=== PATIENT | male | born 1955 | race African-American/Black ===

== ENCOUNTER 2023-10-13 11:50 | Inpatient (IN) ==
[2023-10-13] MEDS ORDERED: KETAMINE HCL ONE (12:33)
[2023-10-13] MEDS ORDERED: PRECEDEX INJ VIAL ONE (12:33)
[2023-10-13] MEDS ORDERED: XYLOCAINE 2 % (PLAIN) ONE (12:33)
[2023-10-13] MEDS: LR 1,000 ML IV 1,000 ML IV SCH (13:23)
[2023-10-13] MEDS: DILAUDID INJ IVP PRN (13:24)
[2023-10-13 13:42] LABS: BASOPHILS # (AUTO) 0.1 X10^3/uL (0.0-0.1); BASOPHILS % (AUTO) 0.4 % (0.2-1.0); HEMATOCRIT 31.5 % (42.0-54.0); HEMOGLOBIN 10.4 g/dL (13.5-18.0); LYMPHOCYTES # (AUTO) 1.3 X10^3/uL (1.3-2.9); LYMPHOCYTES % (AUTO) 7.5 % (21.0-51.0); MEAN CORPUSCULAR HEMOGLOBIN 29.9 pg (27.0-34.0); MEAN CORPUSCULAR HGB CONC 33.1 g/dL (33.0-35.0); MEAN CORPUSCULAR VOLUME 90.3 fL (80.0-100.0); MEAN PLATELET VOLUME 9.5 fL (7.4-11.0); MONOCYTES # (AUTO) 1.4 x10^3/uL (0.3-0.8); MONOCYTES % (AUTO) 7.8 % (0.0-13.0); NEUTROPHILS % (AUTO) 84.3 % (42.0-75.0); PLATELET COUNT 297 X10^3/uL (150.0-450.0); RED BLOOD COUNT 3.49 X10^6/uL (4.7-6.0); RED CELL DISTRIBUTION WIDTH 14.3 % (11.6-16.5); WHITE BLOOD COUNT 17.8 X10^3/uL (3.6-10.0)
[2023-10-13 13:57] LABS: CALCIUM 8.5 mg/dL (8.5-10.1); CARBON DIOXIDE 36.2 mmol/L (21-32); COR CA(FOR HYPOALB) 10.1 mg/dL (8.5-10.1); CREATININE 1.93 mg/dL (0.70-1.30); TOTAL PROTEIN 7.1 g/dL (6.4-8.2)
[2023-10-13 14:01] LABS: POTASSIUM 2.5 mmol/L (3.5-5.1)
--- NOTE | 2023-10-13 14:16 | EKG ---
Test Reason : j Blood Pressure : */* mmHG Vent. Rate : 92 BPM Atrial Rate : * BPM P-R Int : * ms QRS Dur : 104 ms QT Int : 356 ms P-R-T Axes : * 47 264 degrees QTc Int : 440 ms Atrial fibrillation Nonspecific T wave abnormality Abnormal ECG When compared with ECG of 31-MAR-2023 18:00, Atrial fibrillation was present Mar 25 Confirmed by Bharat Ovalle MD ([id number]) on 10/14/2023 7:33:59 AM Referred By: Confirmed By: Bharat Ovalle MD
[2023-10-13] MEDS: NICOTINE PATCH TD SCH (14:20)
[2023-10-13] MEDS: NS 500 ML IV 500 ML with POTASSIUM CHLORIDE INJ 40 MEQ VIAL 40 MEQ IV ONE (14:20)
[2023-10-13] MEDS: LOVENOX INJ 80 MG SYR SC SCH (14:21)
[2023-10-13 14:34] VITALS: BMI 27.6
[2023-10-13] MEDS: CARDIZEM INJ 125 MG VIAL 125 MG in NS 100 ML IV 100 ML IV PRN (14:45)
[2023-10-13] MEDS: APRESOLINE TAB 25 MG PO SCH (14:50)
[2023-10-13] MEDS ORDERED: CONSULT PHARMACY - POTASSIUM & MAGNESIUM XX SCH (15:00)
[2023-10-13 15:35] LABS: HEMOGLOBIN A1C 7.5 %
[2023-10-13] MEDS ORDERED: NS 1,000 ML IV 1,000 ML ONE (15:35)
[2023-10-13] MEDS: NS 1,000 ML IV 1,000 ML IV ONE (15:41)
[2023-10-13] MEDS: XOPENEX 1.25 MG/3 ML NEBULE NEB SCH (20:04)
[2023-10-13] MEDS: Atrovent NEB TX 0.02% NEB SCH (20:04)
[2023-10-13] MEDS: ZOCOR TAB 10 MG PO SCH (20:19)
--- NOTE | 2023-10-13 20:20 | DR.CONSULT ---
CONSULT Consultation for Day of: Date: 10/13/23 Chief Complaint Chief Complaint: Medical management Allergies Allergies Allergy/AdvReac Type Severity Reaction Status Date / Time No Known Allergies Allergy Verified 10/13/23 13:28 History of Present Illness History of Present Illness: This is a 68-year-old black male admitted by vascular surgeon Dr. Hinkle today. The patient was found to have a right lower extremity extremity ischemic limb. The exam reveals the patient's foot is currently cool but not cold. He has a long history of peripheral arterial disease in the past. The patient is presently receiving subcutaneous Lovenox at this time for anticoagulation. Labs today revealed the patient was profoundly hypokalemic with a potassium of 2.5; however, he is receiving potassium replacement already. He is dehydrated and also looks like he has underlying chronic kidney disease. The patient's glucose today was 232. I ordered a hemoglobin A1c, which came back at 7.5%. The patient is now a newly diagnosed type II diabetic, so I will cover him with a regular insulin sliding scale at this time. The patient does have a history of atrial fibrillation and is currently on a Cardizem drip. We will continue that, and I will go ahead and restart his digoxin, and we will also do a digoxin level. I will decrease his lisinopril to 20 mg daily because of his chronic kidney disease to help reduce any risk of hyperkalemia in the future. I see that the patient is anemic, which I suspect is secondary to anemia of chronic disease. He does have an elevated white blood cell count, which could be a stress reaction to his ischemic limb. However, I will go ahead and make sure we do a chest x-ray, urinalysis, and blood cultures x 2 to make sure we are not missing an underlying infection. Thank you for the consultation. I will follow with you. Past Medical History Past Medical History: CHF, Diabetes, Dyslipidemia, Gout and Hypertension Additional Medical History: neuropathy both feet, significant tobacco use in the past. Past Surgical History Surgical History: Ortho Surgery Family History Family Medical History: [place], Sudden Cardiac and Hypertension Social History Type of Tobacco Use: Cigarettes Alcohol Use: None Drug Use: Cocaine Medications Home Medications: No Known Allergies Allergy (Verified 10/13/23 13:28) CONTINUE taking the following medications amlodipine 10 mg tablet 10 mg PO QDAY 10/13/23 [History] apixaban 5 mg tablet (Eliquis) 5 mg PO BID 10/13/23 [History] colchicine 0.6 mg tablet 0.6 mg PO QDAY 10/13/23 [History] digoxin 125 mcg (0.125 mg) tablet 125 mcg PO QDAY 10/13/23 [History] doxazosin 4 mg tablet 4 mg PO QDAY 10/13/23 [History] hydralazine 25 mg tablet 25 mg PO QDAY 10/13/23 [History] hydrochlorothiazide 25 mg tablet 25 mg PO QDAY 10/13/23 [History] lisinopril 40 mg tablet 40 mg PO QDAY 10/13/23 [History] paroxetine HCl 20 mg tablet 20 mg PO QDAY 10/13/23 [History] potassium chloride 10 mEq capsule,extended release 10 meq PO QDAY 10/13/23 [History] simvastatin 10 mg tablet 10 mg PO QPM 10/13/23 [History] Review of Systems Constitutional: Weakness and Malaise Eyes: No Symptoms Reported ENT: No Symptoms Reported Respiratory: SOB with Excertion; denies Cough, Hemoptysis or Sputum Cardiovascular: Palpitations; denies Chest Pain, Orthopnea, Paroxysmal Noc. Dyspnea or Edema Gastrointestinal: No Symptoms Reported Genitourinary: No Symptoms Reported Musculoskeletal: No Symptoms Reported Skin: No Symptoms Reported Neurological: No Symptoms Reported Physical Exam Vital Signs: Vital Signs Temperature 97.9 F Temperature 98.0 F Pulse Rate 74 Pulse Rate 67 Pulse Rate 74 Pulse Rate 74 Pulse Rate 72 Pulse Rate 72 Pulse Rate 84 Pulse Rate 86 Pulse Rate 97 Pulse Rate 96 Pulse Rate 92 Respiratory Rate 24 Respiratory Rate 29 Respiratory Rate 32 Respiratory Rate 37 Respiratory Rate 25 Respiratory Rate 25 Respiratory Rate 31 Respiratory Rate 25 Respiratory Rate 30 Respiratory Rate 18 Respiratory Rate 27 Respiratory Rate 18 Respiratory Rate 36 Blood Pressure 94/53 Blood Pressure 97/52 Blood Pressure 89/53 Blood Pressure 101/56 Blood Pressure 101/56 Blood Pressure 110/68 Blood Pressure 86/52 Blood Pressure 83/49 Blood Pressure 101/61 Blood Pressure 108/59 O2 Sat by Pulse Oximetry 100 O2 Sat by Pulse Oximetry 96 O2 Sat by Pulse Oximetry 92 O2 Sat by Pulse Oximetry 96 O2 Sat by Pulse Oximetry 98 O2 Sat by Pulse Oximetry 98 O2 Sat by Pulse Oximetry 96 O2 Sat by Pulse Oximetry 95 O2 Sat by Pulse Oximetry 94 O2 Sat by Pulse Oximetry 93 O2 Sat by Pulse Oximetry 95 Oriented: Normal, Time, Person and Place Eyes: Normal Ear: Normal Nose: Normal Throat: Normal Respiratory: Clear Throughout Cardiovascular: Normal Auscultation: Bowel Sounds: Normal Palpation: Normal Tenderness: Normal Skin: Normal Musculoskeletal: Normal Psychiatric: Normal Mood Description: Withdrawn Affect: Flat Speech Pattern: Clear and Appropriate Plan (1) Essential (primary) hypertension: Status: Acute Plan: Monitor daily blood pressures. I will cut back the dose of the lisinopril from 40 mg to 20 mg, secondary to his underlying chronic kidney disease. (2) Hyperlipidemia: Status: Acute Plan: Statin treatment. (3) Ischemic leg: Status: Acute Plan: Vascular surgery seen the patient. We will continue him on his Lovenox at this time. (4) Atrial fibrillation: Status: Acute Plan: Continue Cardizem drip. Continue oral digoxin this time. We will check digoxin level. (5) Type 2 diabetes mellitus: Status: Acute Plan: Will cover the patient with sliding scale regular insulin per protocol. (6) Leukocytosis: Status: Acute Plan: Check urinalysis, chest x-ray and blood cultures x 2. (7) Anemia: Status: Acute Plan: Check anemia profile. (8) Dehydration: Status: Acute Plan: IV fluid hydration.
[2023-10-13] MEDS ORDERED: ZOCOR TAB 10 MG PO SCH (21:00)
[2023-10-13 21:13] LABS: APPEARANCE,URINE SLIGHTLY HAZY (CLEAR); BILIRUBIN,URINE 1+ (NEGATIVE); BLOOD/HEMOGLOBIN,URINE 1+ (NEGATIVE); COLOR,URINE AMBER (YELLOW); GLUCOSE, URINE NEGATIVE (NEGATIVE); KETONES,URINE NEGATIVE (NEGATIVE); LEUKOCYTE ESTERASE ,URINE NEGATIVE (NEGATIVE); NITRITES,URINE NEGATIVE (NEGATIVE); PROTEIN,URINE 2+ (NEGATIVE); UROBILINOGEN,URINE 3+ (NORMAL)
[2023-10-13 21:14] LABS: BACTERIA,URINE TRACE /HPF (NEGATIVE); HYALINE CASTS, URINE NUMEROUS /LPF (NEGATIVE); SQUAMOUS EPITHELIAL CELL,UR RARE /HPF (NEGATIVE); TRANSITIONAL EPI CELLS,URINE RARE /HPF (NEGATIVE)
[2023-10-13] MEDS: LANOXIN or DIGITEK PO SCH (21:55)
[2023-10-14] MEDS: HIBICLENS WASH EXT ONE (01:30)
[2023-10-14 05:11] LABS: BASOPHILS # (AUTO) 0.1 X10^3/uL (0.0-0.1); BASOPHILS % (AUTO) 0.5 % (0.2-1.0); EOSINOPHILS # (AUTO) 0.1 x10^3/uL (0.0-0.2); EOSINOPHILS % (AUTO) 0.4 % (0.9-2.9); HEMATOCRIT 29.8 % (42.0-54.0); HEMOGLOBIN 9.9 g/dL (13.5-18.0); LYMPHOCYTES # (AUTO) 1.4 X10^3/uL (1.3-2.9); LYMPHOCYTES % (AUTO) 7.7 % (21.0-51.0); MEAN CORPUSCULAR HEMOGLOBIN 29.8 pg (27.0-34.0); MEAN CORPUSCULAR HGB CONC 33.1 g/dL (33.0-35.0); MEAN CORPUSCULAR VOLUME 90.2 fL (80.0-100.0); MEAN PLATELET VOLUME 10.5 fL (7.4-11.0); MONOCYTES # (AUTO) 1.2 x10^3/uL (0.3-0.8); MONOCYTES % (AUTO) 6.7 % (0.0-13.0); NEUTROPHILS # (AUTO) 15.7 x10^3/uL (2.2-4.8); NEUTROPHILS % (AUTO) 84.7 % (42.0-75.0); PLATELET COUNT 299 X10^3/uL (150.0-450.0); RED CELL DISTRIBUTION WIDTH 14.6 % (11.6-16.5); WHITE BLOOD COUNT 18.5 X10^3/uL (3.6-10.0)
[2023-10-14 05:23] LABS: ALANINE AMINOTRANSFERASE 20 Units/L (12-78); ALBUMIN 1.8 g/dL (3.4-5.0); ALKALINE PHOSPHATASE 100 Units/L (46-116); ASPARTATE AMINO TRANSFERASE 37 Units/L (15-37); BLOOD UREA NITROGEN 18 mg/dL (7-18); CALCIUM 7.9 mg/dL (8.5-10.1); CARBON DIOXIDE 36.7 mmol/L (21-32); CHLORIDE 94 mmol/L (98-107); COR CA(FOR HYPOALB) 9.7 mg/dL (8.5-10.1); COR NA(FOR HYPERGLY) 137 mmol/L (136-145); CREATININE 1.44 mg/dL (0.70-1.30); DIGOXIN 0.35 ng/mL (0.9-2); GLUCOSE 162 mg/dL (65-99); SODIUM 136 mmol/L (136-145); TOTAL PROTEIN 6.5 g/dL (6.4-8.2); eGFR NON BLACK RACES 52 (>60)
[2023-10-14 05:24] LABS: POTASSIUM 2.5 mmol/L (3.5-5.1)
[2023-10-14] MEDS ORDERED: CONSULT PHARMACY - POTASSIUM & MAGNESIUM XX SCH (06:00)
--- NOTE | 2023-10-14 07:36 | RAD ---
EXAM:CHEST, 1 VIEWHISTORY:wheezing ;COMPARISON:No relevant prior studies were available for comparison at the time of interpretation.TECHNIQUE:CHEST, 1 VIEWFINDINGS:Chest:Lines and tubes: Left-sided pacemaker generator with lead or leads in satisfactory position.Mediastinum: Cardiomegaly.Pulmonary vessels: Pulmonary vasculature is prominent.Lung mccracken: No suspicious airspace opacity.Pleura: No effusion. No pneumothorax.Bones and soft tissues: No acute osseous or soft tissue abnormality.IMPRESSION:1. Findings suggest heart failureTHIS IS AN ELECTRONICALLY VERIFIED FINAL REPORT10/14/2023 7:33 AM - Electronically signed by Rajat Lay MD
[2023-10-14] MEDS: NS 500 ML IV 500 ML with POTASSIUM CHLORIDE INJ 40 MEQ VIAL 60 MEQ IV ONE (09:00)
[2023-10-14] MEDS: MAXIPIME VIAL 2 GRAMS 2 G in NS 100 ML IV 100 ML IV SCH (09:00)
[2023-10-14] MEDS ORDERED: HYDROCHLOROTHIAZIDE 25 MG TAB PO SCH (09:00)
[2023-10-14] MEDS ORDERED: K-DUR TAB 20 MEQ PO SCH (09:00)
[2023-10-14] MEDS ORDERED: NORVASC TAB 10 MG PO SCH (09:00)
[2023-10-14] MEDS ORDERED: ZESTRIL TAB 40 MG PO SCH (09:00)
[2023-10-14] MEDS ORDERED: MOBIC TAB 15 MG PO SCH (09:00)
[2023-10-14] MEDS ORDERED: COLCRYS TAB 0.6 MG PO SCH (09:00)
--- NOTE | 2023-10-14 09:18 | PCM.PROG ---
Progress Note Progress Note for Day of Date of Exam: 10/14/23 Subjective Subjective: The patient is sitting up on the side of the bed this morning. He reports that he has had no acute problems since admission yesterday. He had no issues last night. I do see that he had a low-grade fever at 04:00 this morning and 99 F. At that time, he reported that he did get cold and had chills. His white blood cell count did go up to 18,500 with elevated neutrophil count. Last night, urinalysis did not reveal UTI, and yesterday's chest x-ray showed no infection in his lungs. We did do blood cultures x 2 last night. However, the results are still pending. Since his white count has gone up since yesterday and he had a low-grade fever last night, I will go ahead and cover him empirically with cefepime 2 g IV every 8 hours just in case he has some underlying infection somewhere. The patient's hydration status is improved. His estimated GFR is now greater than 60 but his creatinine remains slightly elevated at 1.44. I suspect he likely has underlying chronic kidney disease. His potassium is still low at 2.5 and we will continue to replace it. Magnesium was checked and was normal at 2.5. I spoke with his vascular surgeon, Dr. Hinkle, this morning, and he plans on taking him to the OR later today to evaluate his right lower extremity and see if he can correct the patient's ischemic foot. The patient's heart rate has normalized since yesterday from his atrial fibrillation. He is currently anticoagulated with Lovenox. I am going to start him on oral Cardizem CD 120 mg daily and wean him off his Cardizem drip today. I restarted him on his oral digoxin last night. His digoxin level this morning was low. We will repeat the digoxin level tomorrow and continue his oral digoxin at this time. The patient does have a pacemaker defibrillator and states that this was replaced 6 to 7 months ago. He sees cardiology in [place], [place]. The patient has been hypotensive since admission yesterday. We are still holding his oral antihypertensive medications at this time. Past Medical Family Social History Allergies: Allergies No Known Allergies Allergy (Verified 10/13/23 13:28) Review of Systems ROS: Changes notes (describe) (Chills/rigors) Vital Signs and I&O's Vital Signs: Vital Signs Temperature 99 F Pulse Rate 71 Pulse Rate 73 Pulse Rate 75 Pulse Rate 76 Pulse Rate 72 Respiratory Rate 24 Respiratory Rate 22 Respiratory Rate 23 Respiratory Rate 20 Respiratory Rate 22 Blood Pressure 106/59 Blood Pressure 108/67 Blood Pressure 108/56 Blood Pressure 112/54 Blood Pressure 106/64 O2 Sat by Pulse Oximetry 94 O2 Sat by Pulse Oximetry 92 O2 Sat by Pulse Oximetry 95 O2 Sat by Pulse Oximetry 100 O2 Sat by Pulse Oximetry 96 Intake and Output: Intake & Output 10/11/23 10/12/23 10/13/23 10/14/23 11:59 11:59 11:59 11:59 Intake Total 2516 / 2516 Output Total 1000 / 1000 Balance 1516 / 1516 Physical Exam Oriented: Normal, Time, Person and Place Eyes: Normal Ear: Normal Nose: Normal Throat: Normal Respiratory: Normal Cardiovascular: Normal Auscultation: Bowel Sounds: Normal Tenderness: Normal Skin: Normal Musculoskeletal: Normal and Foot (Right foot is cool from skilled nursing his foot to the end of his toes) Psychiatric: Normal Mood Description: Withdrawn Affect: Flat Speech Pattern: Clear and Appropriate Laboratory and Diagnostics 10/14/23 04:26 10/14/23 04:26 Labs: Laboratory WBC 18.5 X10^3/uL (3.6-10.0) H 10/14/23 04:26 RBC 3.30 X10^6/uL (4.7-6.0) L 10/14/23 04:26 Hgb 9.9 g/dL (13.5-18.0) L 10/14/23 04:26 Hct 29.8 % (42.0-54.0) L 10/14/23 04:26 MCV 90.2 fL (80.0-100.0) 10/14/23 04:26 MCH 29.8 pg (27.0-34.0) 10/14/23 04:26 MCHC 33.1 g/dL (33.0-35.0) 10/14/23 04:26 RDW 14.6 % (11.6-16.5) 10/14/23 04:26 Plt Count 299 X10^3/uL (150.0-450.0) 10/14/23 04:26 MPV 10.5 fL (7.4-11.0) 10/14/23 04:26 Neut % (Auto) 84.7 % (42.0-75.0) H 10/14/23 04:26 Lymph % (Auto) 7.7 % (21.0-51.0) L 10/14/23 04:26 [place] % (Auto) 6.7 % (0.0-13.0) 10/14/23 04:26 Eos % (Auto) 0.4 % (0.9-2.9) L 10/14/23 04:26 Baso % (Auto) 0.5 % (0.2-1.0) 10/14/23 04:26 Neut # (Auto) 15.7 x10^3/uL (2.2-4.8) H 10/14/23 04:26 Lymph # (Auto) 1.4 X10^3/uL (1.3-2.9) 10/14/23 04:26 [place] # (Auto) 1.2 x10^3/uL (0.3-0.8) H 10/14/23 04:26 Eos # (Auto) 0.1 x10^3/uL (0.0-0.2) 10/14/23 04:26 Baso # (Auto) 0.1 X10^3/uL (0.0-0.1) 10/14/23 04:26 Absolute Nucleated RBC 0.0 /100WBC 10/14/23 04:26 Sodium 136 mmol/L (136-145) 10/14/23 04:26 Corrected Sodium 137 mmol/L (136-145) 10/14/23 04:26 Potassium 2.5 mmol/L (3.5-5.1) L* 10/14/23 04:26 Chloride 94 mmol/L (98-107) L 10/14/23 04:26 Carbon Dioxide 36.7 mmol/L (21-32) H 10/14/23 04:26 BUN 18 mg/dL (7-18) 10/14/23 04:26 Creatinine 1.44 mg/dL (0.70-1.30) H 10/14/23 04:26 Est GFR (MDRD) Af Amer > 60 (>60) 10/14/23 04:26 Est GFR (MDRD) Non-Af 52 (>60) L 10/14/23 04:26 Glucose 162 mg/dL (65-99) H 10/14/23 04:26 POC Glucose (mg/dL) 158 mg/dL (65-99) H 10/14/23 05:39 Hemoglobin A1c 7.5 % 10/13/23 13:30 Calcium 7.9 mg/dL (8.5-10.1) L 10/14/23 04:26 Corrected Calcium 9.7 mg/dL (8.5-10.1) 10/14/23 04:26 Magnesium 2.5 mg/dL (2.0-2.9) 10/14/23 04:26 Total Bilirubin 1.00 mg/dL (0.2-1.0) 10/14/23 04:26 AST 37 Units/L (15-37) 10/14/23 04:26 ALT 20 Units/L (12-78) 10/14/23 04:26 Alkaline Phosphatase 100 Units/L (46-116) 10/14/23 04:26 Troponin I High Sens 59.6 ng/L (4.0-60.0) 10/13/23 17:13 B-Natriuretic Peptide 479 pg/mL (0-79) H 10/14/23 04:26 Total Protein 6.5 g/dL (6.4-8.2) 10/14/23 04:26 Albumin 1.8 g/dL (3.4-5.0) L 10/14/23 04:26 Globulin 4.7 g/dL (2.5-4.5) H 10/14/23 04:26 Albumin/Globulin Ratio 0.4 Ratio (1.1-2.1) L 10/14/23 04:26 Specimen Type Clean catch urine 10/13/23 20:08 Urine Color [place] (YELLOW) 10/13/23 20:08 Urine Appearance Slightly hazy (CLEAR) 10/13/23 20:08 Urine pH 5.0 (5.0 - 8.0) 10/13/23 20:08 Ur Specific [place] 1.025 (1.000-1.030) 10/13/23 20:08 Urine Protein 2+ (NEGATIVE) 10/13/23 20:08 Urine Glucose (UA) Negative (NEGATIVE) 10/13/23 20:08 Urine Ketones Negative (NEGATIVE) 10/13/23 20:08 Urine Blood 1+ (NEGATIVE) 10/13/23 20:08 Urine Nitrite Negative (NEGATIVE) 10/13/23 20:08 Urine Bilirubin 1+ (NEGATIVE) 10/13/23 20:08 Urine Urobilinogen 3+ (NORMAL) 10/13/23 20:08 Ur Leukocyte Esterase Negative (NEGATIVE) 10/13/23 20:08 Urine RBC 3-5 /HPF (0-3) A 10/13/23 20:08 Urine WBC 0-2 /HPF (0-5) 10/13/23 20:08 Ur Squamous Epith Cells Rare /HPF (NEGATIVE) 10/13/23 20:08 Ur Transition Epith Cell Rare /HPF (NEGATIVE) 10/13/23 20:08 Urine Bacteria Trace /HPF (NEGATIVE) 10/13/23 20:08 Hyaline Casts Numerous /LPF (NEGATIVE) 10/13/23 20:08 Ur Culture Indicated? No/not indicated 10/13/23 20:08 Digoxin 0.35 ng/mL (0.9-2) L 10/14/23 04:26 Urine Opiates Screen Negative (NEG=<300) 10/13/23 20:08 Urine Methadone Screen Negative (NEG=<300) 10/13/23 20:08 Ur Barbiturates Screen Negative (NEG=<200) 10/13/23 20:08 Ur Phencyclidine Scrn Negative (NEG=<25) 10/13/23 20:08 Ur Amphetamines Screen Negative (NEG=<1000) 10/13/23 20:08 U Benzodiazepines Scrn Negative (NEG=<200) 10/13/23 20:08 Urine Cocaine Screen Positive (NEG=<300) 10/13/23 20:08 U Marijuana (THC) Screen Negative (NEG=<50) 10/13/23 20:08 Plan (1) Ischemic leg: Status: Acute Plan: Treatment per vascular surgery. Continue Lovenox at this time. (2) Leukocytosis: Status: Acute Narrative Support Text: Blood cultures x 2 pending, urinalysis within normal limits and chest x-ray yesterday shows no infiltrates. Patient does report chills and rigors earlier this morning and he did have a low-grade fever 99 F Plan: I will cover the patient empirically with Maxipime 2 g IV every 8 hours. Follow-up with blood cultures when available. (3) Atrial fibrillation: Status: Acute Qualifiers: Atrial fibrillation type: unspecified chronic Qualified Code(s): I48.20 - Chronic atrial fibrillation, unspecified Plan: The patient has been on a Cardizem drip per protocol. We are weaning down off as I have started him on oral Cardizem CD 120 mg p.o. daily this point. He is also on oral digoxin over his digoxin level is low. We will continue him on the Truxima daily and repeat digoxin level tomorrow morning. (4) Type 2 diabetes mellitus: Status: Acute Qualifiers: Diabetes mellitus fci insulin use: without fci use Plan: The patient is being covered with regular insulin sliding scale per protocol. (5) Essential (primary) hypertension: Status: Acute Narrative Support Text: The patient's blood pressure is running low still. Plan: The patient's blood pressure is running low still so we will continue to hold his oral and hypertensives. (6) Anemia: Status: Acute Plan: Monitor daily CBCs. Check anemia panel. (7) Dehydration: Status: Acute Narrative Support Text: The patient's dehydration appears to have resolved. His estimated GFR is greater than 60 this morning Plan: Continue IV lactated Ringer's at this time. (8) Hyperlipidemia: Status: Acute Plan: Continue simvastatin 10 mg daily.
[2023-10-14 09:42] LABS: RETICULOCYTE % 2.28 % (0.8-2.2)
[2023-10-14] MEDS: ASPIRIN EC 81 MG PO SCH (09:49)
[2023-10-14] MEDS: PAXIL PO SCH (09:49)
[2023-10-14] MEDS: ZESTRIL TAB 20 MG PO SCH (09:49)
[2023-10-14] MEDS: CARDURA PO SCH (09:50)
[2023-10-14] MEDS: VALIUM INJ IVP PRN (10:26)
[2023-10-14] MEDS: ACTIVASE CATHFLO 12 MG in NS 250 ML IV 228 ML INTRACATH ONE (13:28)
[2023-10-14] MEDS: Atrovent NEB TX 0.02% ONE (13:56)
[2023-10-14] MEDS: XOPENEX 1.25 MG/3 ML NEBULE NEB ONE (13:57)
[2023-10-14] MEDS ORDERED: NS 500 ML IV 500 ML IV SCH (14:00)
[2023-10-14 14:25] LABS: BASOPHILS # (AUTO) 0.2 X10^3/uL (0.0-0.1); BASOPHILS % (AUTO) 1.1 % (0.2-1.0); EOSINOPHILS # (AUTO) 0.1 x10^3/uL (0.0-0.2); EOSINOPHILS % (AUTO) 0.4 % (0.9-2.9); HEMATOCRIT 30.8 % (42.0-54.0); HEMOGLOBIN 9.9 g/dL (13.5-18.0); LYMPHOCYTES % (AUTO) 5.5 % (21.0-51.0); MEAN CORPUSCULAR HEMOGLOBIN 29.2 pg (27.0-34.0); MEAN CORPUSCULAR HGB CONC 32.2 g/dL (33.0-35.0); MEAN CORPUSCULAR VOLUME 90.8 fL (80.0-100.0); MEAN PLATELET VOLUME 10.2 fL (7.4-11.0); MONOCYTES # (AUTO) 0.9 x10^3/uL (0.3-0.8); MONOCYTES % (AUTO) 4.8 % (0.0-13.0); NEUTROPHILS # (AUTO) 15.6 x10^3/uL (2.2-4.8); NEUTROPHILS % (AUTO) 88.2 % (42.0-75.0); PLATELET COUNT 314 X10^3/uL (150.0-450.0); RED CELL DISTRIBUTION WIDTH 14.4 % (11.6-16.5); WHITE BLOOD COUNT 17.8 X10^3/uL (3.6-10.0)
[2023-10-14 14:41] LABS: BAND NEUTROPHILS % 3 % (0-10); PLATELET MORPHOLOGY COMMENT NORMAL (NORMAL)
[2023-10-14] MEDS: ACTIVASE CATHFLO ONE ×2 (15:01→15:02)
[2023-10-14] MEDS: NS 100 ML IV 100 ML ONE (15:08)
[2023-10-14] MEDS: ANCEF VIAL 1 GRAM ONE (15:08)
[2023-10-14] MEDS: NS 1,000 ML IV 1,000 ML ONE ×2 (15:08→15:38)
[2023-10-14] MEDS ORDERED: KETAMINE HCL ONE (15:15)
[2023-10-14] MEDS: FENTANYL VIAL INJ 100 mcg ONE (15:15)
[2023-10-14] MEDS: DIPRIVAN VIAL 20 ML ONE ×4 (15:15→16:58)
[2023-10-14] MEDS: VERSED ONE (15:15)
[2023-10-14] MEDS: VISIPAQUE 100 ML ONE ×2 (15:38→16:30)
[2023-10-14] MEDS: HEPARIN SODIUM IN D5W 25,000 UNITS/500 ML BAG ONE ×2 (15:38)
[2023-10-14] MEDS: MARCAINE 0.5% ONE (15:38)
[2023-10-14] MEDS: HEPARIN SODIUM INJ 5000 UNITS ONE ×2 (15:59→17:00)
[2023-10-14] MEDS: NEO-SYNEPHRINE INJ ONE (16:51)
--- NOTE | 2023-10-14 17:31 | DR.H&P ---
H&P History & Physical for Day of: H&P Date: 10/14/23 Chief Complaint Chief Complaint: severe rest pain right leg History of Present Illness History of Present Illness: This is a 68 year old male with history of diabetes and significant tobacco abuse who presented several months ago with bilateral severe lower extremity critical ischemia . In July of this year he underwent arterial intervention with stenting of the right external iliac artery and atherectomy and drug eluting stenting of a completely occluded right superficial femoral artery .He was supposed to see us in follow-up but missed his appointment. Follow-up dopper studies done about 2 weeks ago showed occlusion of the arteries of the right leg. We have been trying for over 2 weeks to get in touch with him and have been unsuccessful. He returned none of our calls despite multiple messages left. On admission gave history significant cocaine use. He also had tachycardia with atrial fibrillation and Rapid ventricular rate despite a pacemaker/ defibrillator in place. Hypokalemia has also been treated . That has since been treated. He is admitted for anticoagulation and intervention of the right leg probably requiring percutaneous directed thrombol ysis and subsequent revision of the stents . Past Medical History Past Medical History: CHF, Diabetes, Dyslipidemia, Gout and Hypertension Additional Medical History: neuropathy both feet, significant tobacco use in the past. Past Surgical History Surgical History: Ortho Surgery Family History Family Medical History: [place], Sudden Cardiac and Hypertension Social History Type of Tobacco Use: Cigarettes Alcohol Use: None Drug Use: Cocaine Medications Home Medications: Home Medications Medication Instructions Recorded Confirmed Type amlodipine 10 mg tablet 10 mg PO QDAY 10/13/23 10/13/23 History apixaban 5 mg tablet (Eliquis) 5 mg PO BID 10/13/23 10/13/23 History colchicine 0.6 mg tablet 0.6 mg PO QDAY 10/13/23 10/13/23 History digoxin 125 mcg (0.125 mg) tablet 125 mcg PO QDAY 10/13/23 10/13/23 History doxazosin 4 mg tablet 4 mg PO QDAY 10/13/23 10/13/23 History hydralazine 25 mg tablet 25 mg PO QDAY 10/13/23 10/13/23 History hydrochlorothiazide 25 mg tablet 25 mg PO QDAY 10/13/23 10/13/23 History lisinopril 40 mg tablet 40 mg PO QDAY 10/13/23 10/13/23 History paroxetine HCl 20 mg tablet 20 mg PO QDAY 10/13/23 10/13/23 History potassium chloride 10 mEq 10 meq PO QDAY 10/13/23 10/13/23 History capsule,extended release simvastatin 10 mg tablet 10 mg PO QPM 10/13/23 10/13/23 History Allergies Allergies Allergy/AdvReac Type Severity Reaction Status Date / Time No Known Allergies Allergy Verified 10/13/23 13:28 Labs 10/14/23 13:53 10/14/23 13:53 Labs: Laboratory WBC 17.8 X10^3/uL (3.6-10.0) H 10/14/23 13:53 RBC 3.40 X10^6/uL (4.7-6.0) L 10/14/23 13:53 Hgb 9.9 g/dL (13.5-18.0) L 10/14/23 13:53 Hct 30.8 % (42.0-54.0) L 10/14/23 13:53 MCV 90.8 fL (80.0-100.0) 10/14/23 13:53 MCH 29.2 pg (27.0-34.0) 10/14/23 13:53 MCHC 32.2 g/dL (33.0-35.0) L 10/14/23 13:53 RDW 14.4 % (11.6-16.5) 10/14/23 13:53 Plt Count 314 X10^3/uL (150.0-450.0) 10/14/23 13:53 Plt Count Comment Adequate (ADEQUATE) 10/14/23 13:53 MPV 10.2 fL (7.4-11.0) 10/14/23 13:53 Neut % (Auto) 88.2 % (42.0-75.0) H 10/14/23 13:53 Lymph % (Auto) 5.5 % (21.0-51.0) L 10/14/23 13:53 [place] % (Auto) 4.8 % (0.0-13.0) 10/14/23 13:53 Eos % (Auto) 0.4 % (0.9-2.9) L 10/14/23 13:53 Baso % (Auto) 1.1 % (0.2-1.0) H 10/14/23 13:53 Neut # (Auto) 15.6 x10^3/uL (2.2-4.8) H 10/14/23 13:53 Lymph # (Auto) 1.0 X10^3/uL (1.3-2.9) L 10/14/23 13:53 [place] # (Auto) 0.9 x10^3/uL (0.3-0.8) H 10/14/23 13:53 Eos # (Auto) 0.1 x10^3/uL (0.0-0.2) 10/14/23 13:53 Baso # (Auto) 0.2 X10^3/uL (0.0-0.1) H 10/14/23 13:53 Absolute Nucleated RBC 0.1 /100WBC 10/14/23 13:53 Total Counted 100 10/14/23 13:53 Neutrophils % (Manual) 84 % (39-76) H 10/14/23 13:53 Band Neutrophils % 3 % (0-10) 10/14/23 13:53 Lymphocytes % (Manual) 8 % (13-43) L 10/14/23 13:53 Monocytes % (Manual) 5 % (4-9) 10/14/23 13:53 Eosinophils % (Manual) Cancelled 10/14/23 04:26 Basophils % (Manual) Cancelled 10/14/23 04:26 Metamyelocytes % Cancelled 10/14/23 04:26 Myelocytes % Cancelled 10/14/23 04:26 Promyelocytes % Cancelled 10/14/23 04:26 Nucleated RBCs Cancelled 10/14/23 04:26 Atypical Lymphocytes Cancelled 10/14/23 04:26 Blast Cells Cancelled 10/14/23 04:26 Smudge Cells Cancelled 10/14/23 04:26 Toxic Granulation Cancelled 10/14/23 04:26 Dohle Bodies Cancelled 10/14/23 04:26 Binu Rods Cancelled 10/14/23 04:26 Plt Clumps, EDTA Cancelled 10/14/23 04:26 Giant Platelets Cancelled 10/14/23 04:26 Plt Morphology Comment Normal (NORMAL) 10/14/23 13:53 RBC Morphology Normal (NORMAL) 10/14/23 13:53 Dimorphic RBCs Cancelled 10/14/23 04:26 Polychromasia Cancelled 10/14/23 04:26 Hypochromasia Cancelled 10/14/23 04:26 Poikilocytosis Cancelled 10/14/23 04:26 Basophilic Stippling Cancelled 10/14/23 04:26 Anisocytosis Cancelled 10/14/23 04:26 Microcytosis Cancelled 10/14/23 04:26 Macrocytosis Cancelled 10/14/23 04:26 Spherocytes Cancelled 10/14/23 04:26 Pappenheimer Bodies Cancelled 10/14/23 04:26 Sickle Cells Cancelled 10/14/23 04:26 Target Cells Cancelled 10/14/23 04:26 Tear Drop Cells Cancelled 10/14/23 04:26 Ovalocytes Cancelled 10/14/23 04:26 Stomatocytes Cancelled 10/14/23 04:26 Helmet Cells Cancelled 10/14/23 04:26 [place] Bodies Cancelled 10/14/23 04:26 [place] Rings Cancelled 10/14/23 04:26 [place] Cells Cancelled 10/14/23 04:26 Crenated Cell Cancelled 10/14/23 04:26 Acanthocytes (Spur) Cancelled 10/14/23 04:26 Rouleaux Cancelled 10/14/23 04:26 Schistocytes Cancelled 10/14/23 04:26 Absolute Retic 0.0773 10^6/uL 10/14/23 09:30 Percent Retic 2.28 % (0.8-2.2) H 10/14/23 09:30 APTT 38.9 SECONDS (22.9-36.5) H 10/14/23 13:53 PTT Comment - 10/14/23 13:53 Fibrinogen 887 mg/dL (239-489) H 10/14/23 13:53 Sodium 136 mmol/L (136-145) 10/14/23 04:26 Corrected Sodium 137 mmol/L (136-145) 10/14/23 04:26 Potassium 2.8 mmol/L (3.5-5.1) L* 10/14/23 13:53 Chloride 94 mmol/L (98-107) L 10/14/23 04:26 Carbon Dioxide 36.7 mmol/L (21-32) H 10/14/23 04:26 BUN 18 mg/dL (7-18) 10/14/23 04:26 Creatinine 1.44 mg/dL (0.70-1.30) H 10/14/23 04:26 Est GFR (MDRD) Af Amer > 60 (>60) 10/14/23 04:26 Est GFR (MDRD) Non-Af 52 (>60) L 10/14/23 04:26 Glucose 162 mg/dL (65-99) H 10/14/23 04:26 POC Glucose (mg/dL) 145 mg/dL (65-99) H 10/14/23 11:19 Hemoglobin A1c 7.5 % 10/13/23 13:30 Calcium 7.9 mg/dL (8.5-10.1) L 10/14/23 04:26 Corrected Calcium 9.7 mg/dL (8.5-10.1) 10/14/23 04:26 Magnesium 2.5 mg/dL (2.0-2.9) 10/14/23 04:26 Iron 14 ug/dL (50-175) L 10/14/23 09:30 TIBC 175 ug/dL (250-450) L 10/14/23 09:30 Transferrin 140 mg/dL (202-364) L 10/14/23 09:30 Ferritin 853 ng/mL (26-388) H 10/14/23 09:30 Total Bilirubin 1.00 mg/dL (0.2-1.0) 10/14/23 04:26 AST 37 Units/L (15-37) 10/14/23 04:26 ALT 20 Units/L (12-78) 10/14/23 04:26 Alkaline Phosphatase 100 Units/L (46-116) 10/14/23 04:26 Troponin I High Sens 59.6 ng/L (4.0-60.0) 10/13/23 17:13 B-Natriuretic Peptide 479 pg/mL (0-79) H 10/14/23 04:26 Total Protein 6.5 g/dL (6.4-8.2) 10/14/23 04:26 Albumin 1.8 g/dL (3.4-5.0) L 10/14/23 04:26 Globulin 4.7 g/dL (2.5-4.5) H 10/14/23 04:26 Albumin/Globulin Ratio 0.4 Ratio (1.1-2.1) L 10/14/23 04:26 Vitamin B12 370 pg/mL (193-986) 10/14/23 09:30 Folate 8.6 ng/mL (>8.6) 10/14/23 09:30 Specimen Type Clean catch urine 10/13/23 20:08 Urine Color [place] (YELLOW) 10/13/23 20:08 Urine Appearance Slightly hazy (CLEAR) 10/13/23 20:08 Urine pH 5.0 (5.0 - 8.0) 10/13/23 20:08 Ur Specific [place] 1.025 (1.000-1.030) 10/13/23 20:08 Urine Protein 2+ (NEGATIVE) 10/13/23 20: Urine Glucose (UA) Negative (NEGATIVE) 10/13/23 20: Urine Ketones Negative (NEGATIVE) 10/13/23 20:08 Urine Blood 1+ (NEGATIVE) 10/13/23 20:08 Urine Nitrite Negative (NEGATIVE) 10/13/23 20:08 Urine Bilirubin 1+ (NEGATIVE) 10/13/23 20:08 Urine Urobilinogen 3+ (NORMAL) 10/13/23 20:08 Ur Leukocyte Esterase Negative (NEGATIVE) 10/13/23 20:08 Urine RBC 3-5 /HPF (0-3) A 10/13/23 20:08 Urine WBC 0-2 /HPF (0-5) 10/13/23 20:08 Ur Squamous Epith Cells Rare /HPF (NEGATIVE) 10/13/23 20:08 Ur Transition Epith Cell Rare /HPF (NEGATIVE) 10/13/23 20:08 Urine Bacteria Trace /HPF (NEGATIVE) 10/13/23 20:08 Hyaline Casts Numerous /LPF (NEGATIVE) 10/13/23 20:08 Ur Culture Indicated? No/not indicated 10/13/23 20:08 Digoxin 0.35 ng/mL (0.9-2) L 10/14/23 04:26 Urine Opiates Screen Negative (NEG=<300) 10/13/23 20:08 Urine Methadone Screen Negative (NEG=<300) 10/13/23 20:08 Ur Barbiturates Screen Negative (NEG=<200) 10/13/23 20:08 Ur Phencyclidine Scrn Negative (NEG=<25) 10/13/23 20:08 Ur Amphetamines Screen Negative (NEG=<1000) 10/13/23 20:08 U Benzodiazepines Scrn Negative (NEG=<200) 10/13/23 20:08 Urine Cocaine Screen Positive (NEG=<300) 10/13/23 20:08 U Marijuana (THC) Screen Negative (NEG=<50) 10/13/23 20:08 Review of Systems Constitutional: Weakness and Malaise Eyes: No Symptoms Reported ENT: No Symptoms Reported Respiratory: SOB with Excertion; denies Cough, Hemoptysis or Sputum Cardiovascular: Palpitations; denies Chest Pain, Orthopnea, Paroxysmal Noc. Dyspnea or Edema Gastrointestinal: No Symptoms Reported Genitourinary: No Symptoms Reported Musculoskeletal: No Symptoms Reported Skin: No Symptoms Reported Neurological: No Symptoms Reported Physical Exam Vital Signs: Vital Signs Temperature 98.0 F Temperature 99.2 F Pulse Rate 79 Pulse Rate 73 Pulse Rate 79 Pulse Rate 75 Pulse Rate 72 Pulse Rate 69 Pulse Rate 65 Pulse Rate 74 Respiratory Rate 25 Respiratory Rate 22 Respiratory Rate 21 Respiratory Rate 22 Respiratory Rate 24 Respiratory Rate 22 Respiratory Rate 23 Respiratory Rate 22 Blood Pressure 132/59 Blood Pressure 123/78 Blood Pressure 115/67 Blood Pressure 123/72 Blood Pressure 116/68 Blood Pressure 82/45 O2 Sat by Pulse Oximetry 97 O2 Sat by Pulse Oximetry 99 O2 Sat by Pulse Oximetry 95 O2 Sat by Pulse Oximetry 94 O2 Sat by Pulse Oximetry 94 O2 Sat by Pulse Oximetry 94 O2 Sat by Pulse Oximetry 95 O2 Sat by Pulse Oximetry 95 Oriented: Normal, Time, Person and Place Eyes: Normal Ear: Normal Nose: Normal Throat: Normal Respiratory: Clear Throughout Cardiovascular: Normal and Other (left femoral pulse is palpable , left foot war m with biphasic flow at ankle of arteries , right foot cool with no palapble femoral pulse and no doppler signal at the right ankle . ) : Normal Auscultation: Bowel Sounds: Normal Palpation: Normal Tenderness: Normal Skin: Normal Musculoskeletal: Normal Psychiatric: Anxiety and Agitation Mood Description: Anxious Affect: Anxious Assessment/Plan (1) Ischemic leg: Status: Acute Plan: Patient will be admitted and placed on therapeutic Lovenox. Will be taken to the operating Suite on 13 of October for attempt to place percutaneous thrombolytic catheter. he is at high risk for limb loss (2) Leukocytosis: Status: Acute Plan: IV antibiotics , but most likely elevation of WBC due to ischemic right foot. (3) Atrial fibrillation: Qualifiers: Atrial fibrillation type: unspecified chronic Qualified Code(s): I48.20 - Chronic atrial fibrillation, unspecified Status: Acute Plan: patient has pacemaker / defibrillator in place . Patient with atrial fibrillation and Rapid ventricular rate controlled with Diltiazem drip.Consulted Dr Rachel who restarted the patient's digoxin. Will obtain interpolation of the pacemaker /defibrillator to make sure it is functioning well (4) Type 2 diabetes mellitus: Qualifiers: Diabetes mellitus medical terminologist insulin use: without medical terminologist use Status: Acute Plan: 1800 Praneeth ADA diet and sliding scale insulin (5) Essential (primary) hypertension: Status: Acute Plan: patient was hypotensive on admission. we will restart his medications when appropriate (6) Anemia: Status: Acute (7) Dehydration: Status: Acute Plan: bolus of fluids (8) Hyperlipidemia: Status: Acute Plan: home meds (9) Cocaine abuse: Status: Acute Plan: will need to observe for withdrawal and treat accordingly. Review H&P Reviewed: Yes Patient was examined?: Yes
[2023-10-14] MEDS: CARDIZEM CD 120 MG 24-HR PO SCH (17:58)
[2023-10-14 19:45] LABS: BASOPHILS # (AUTO) 0.2 X10^3/uL (0.0-0.1); BASOPHILS % (AUTO) 0.9 % (0.2-1.0); EOSINOPHILS % (AUTO) 0.3 % (0.9-2.9); HEMATOCRIT 29.6 % (42.0-54.0); HEMOGLOBIN 9.6 g/dL (13.5-18.0); LYMPHOCYTES # (AUTO) 1.7 X10^3/uL (1.3-2.9); LYMPHOCYTES % (AUTO) 9.7 % (21.0-51.0); MEAN CORPUSCULAR HEMOGLOBIN 29.4 pg (27.0-34.0); MEAN CORPUSCULAR HGB CONC 32.5 g/dL (33.0-35.0); MEAN CORPUSCULAR VOLUME 90.6 fL (80.0-100.0); MEAN PLATELET VOLUME 9.6 fL (7.4-11.0); MONOCYTES # (AUTO) 0.8 x10^3/uL (0.3-0.8); MONOCYTES % (AUTO) 4.7 % (0.0-13.0); NEUTROPHILS # (AUTO) 14.6 x10^3/uL (2.2-4.8); NEUTROPHILS % (AUTO) 84.4 % (42.0-75.0); PLATELET COUNT 344 X10^3/uL (150.0-450.0); RED BLOOD COUNT 3.27 X10^6/uL (4.7-6.0); RED CELL DISTRIBUTION WIDTH 14.5 % (11.6-16.5); WHITE BLOOD COUNT 17.4 X10^3/uL (3.6-10.0)
[2023-10-14] MEDS: K-DUR TAB 20 MEQ PO SCH (20:28)
[2023-10-14] MEDS: LOVENOX INJ 100 MG SYR SC SCH (20:28)
[2023-10-14] MEDS: SNACK - Diabetic Appropriate PO SCH (20:28)
[2023-10-14] MEDS: NovoLIN R (or HumuLIN R) SUBCUT PRN (20:47)
[2023-10-15 01:50] LABS: HEMOGLOBIN 9.3 g/dL (13.5-18.0)
[2023-10-15 01:55] LABS: BASOPHILS # (AUTO) 0.1 X10^3/uL (0.0-0.1); BASOPHILS % (AUTO) 0.3 % (0.2-1.0); EOSINOPHILS % (AUTO) 0.3 % (0.9-2.9); HEMATOCRIT 28.3 % (42.0-54.0); LYMPHOCYTES # (AUTO) 1.2 X10^3/uL (1.3-2.9); LYMPHOCYTES % (AUTO) 7.3 % (21.0-51.0); MEAN CORPUSCULAR HEMOGLOBIN 29.9 pg (27.0-34.0); MEAN CORPUSCULAR HGB CONC 32.9 g/dL (33.0-35.0); MEAN CORPUSCULAR VOLUME 90.7 fL (80.0-100.0); MEAN PLATELET VOLUME 9.9 fL (7.4-11.0); MONOCYTES % (AUTO) 6.2 % (0.0-13.0); NEUTROPHILS # (AUTO) 13.9 x10^3/uL (2.2-4.8); NEUTROPHILS % (AUTO) 85.9 % (42.0-75.0); PLATELET COUNT 348 X10^3/uL (150.0-450.0); RED BLOOD COUNT 3.12 X10^6/uL (4.7-6.0); RED CELL DISTRIBUTION WIDTH 14.6 % (11.6-16.5); WHITE BLOOD COUNT 16.2 X10^3/uL (3.6-10.0)
[2023-10-15 01:59] LABS: ALANINE AMINOTRANSFERASE 17 Units/L (12-78); ALBUMIN 1.7 g/dL (3.4-5.0); ALKALINE PHOSPHATASE 98 Units/L (46-116); ASPARTATE AMINO TRANSFERASE 33 Units/L (15-37); BLOOD UREA NITROGEN 15 mg/dL (7-18); CALCIUM 7.7 mg/dL (8.5-10.1); CARBON DIOXIDE 36.8 mmol/L (21-32); CHLORIDE 98 mmol/L (98-107); COR CA(FOR HYPOALB) 9.5 mg/dL (8.5-10.1); COR NA(FOR HYPERGLY) 140 mmol/L (136-145); CREATININE 1.44 mg/dL (0.70-1.30); DIGOXIN 0.44 ng/mL (0.9-2); GLUCOSE 228 mg/dL (65-99); SODIUM 137 mmol/L (136-145); TOTAL PROTEIN 6.2 g/dL (6.4-8.2); eGFR NON BLACK RACES 52 (>60)
[2023-10-15 04:03] LABS: BILIRUBIN,URINE 1+ (NEGATIVE); BLOOD/HEMOGLOBIN,URINE 5+ (NEGATIVE); GLUCOSE, URINE NEGATIVE (NEGATIVE); KETONES,URINE NEGATIVE (NEGATIVE); LEUKOCYTE ESTERASE ,URINE 1+ (NEGATIVE); NITRITES,URINE POSITIVE (NEGATIVE); PROTEIN,URINE 3+ (NEGATIVE); UROBILINOGEN,URINE 2+ (NORMAL)
[2023-10-15 04:12] LABS: APPEARANCE,URINE CLOUDY (CLEAR)
[2023-10-15 04:13] LABS: COLOR,URINE RED (YELLOW)
[2023-10-15 04:14] LABS: BACTERIA,URINE 1+ /HPF (NEGATIVE); RBC,URINE TNTC /HPF (0-3); SQUAMOUS EPITHELIAL CELL,UR FEW /HPF (NEGATIVE)
[2023-10-15] MEDS ORDERED: CONSULT PHARMACY - POTASSIUM & MAGNESIUM XX SCH (08:00)
[2023-10-15 08:01] LABS: BASOPHILS # (AUTO) 0.2 X10^3/uL (0.0-0.1); BASOPHILS % (AUTO) 1.2 % (0.2-1.0); EOSINOPHILS # (AUTO) 0.1 x10^3/uL (0.0-0.2); EOSINOPHILS % (AUTO) 0.5 % (0.9-2.9); HEMATOCRIT 28.9 % (42.0-54.0); HEMOGLOBIN 9.4 g/dL (13.5-18.0); LYMPHOCYTES # (AUTO) 1.2 X10^3/uL (1.3-2.9); LYMPHOCYTES % (AUTO) 6.6 % (21.0-51.0); MEAN CORPUSCULAR HEMOGLOBIN 29.6 pg (27.0-34.0); MEAN CORPUSCULAR HGB CONC 32.6 g/dL (33.0-35.0); MEAN CORPUSCULAR VOLUME 90.8 fL (80.0-100.0); MEAN PLATELET VOLUME 9.7 fL (7.4-11.0); MONOCYTES # (AUTO) 0.6 x10^3/uL (0.3-0.8); MONOCYTES % (AUTO) 3.3 % (0.0-13.0); NEUTROPHILS # (AUTO) 15.3 x10^3/uL (2.2-4.8); NEUTROPHILS % (AUTO) 88.4 % (42.0-75.0); PLATELET COUNT 350 X10^3/uL (150.0-450.0); RED BLOOD COUNT 3.18 X10^6/uL (4.7-6.0); RED CELL DISTRIBUTION WIDTH 14.3 % (11.6-16.5); WHITE BLOOD COUNT 17.3 X10^3/uL (3.6-10.0)
[2023-10-15 08:20] LABS: BAND NEUTROPHILS % 1 % (0-10)
[2023-10-15 08:21] LABS: PLATELET MORPHOLOGY COMMENT NORMAL (NORMAL)
[2023-10-15] MEDS: NORCO 10/325 TAB PO PRN (09:14)
--- NOTE | 2023-10-15 09:19 | PCM.PROG ---
Progress Note Progress Note for Day of Date of Exam: 10/15/23 Subjective Subjective: The patient is lying in bed this morning. He was taken to the OR yesterday, where they tried to restart the artery going to his right foot. Unfortunately, they were unable to do this. The patient's right foot is still cool at this point. He did have 2 blisters on his foot yesterday morning that have ruptured since then and have been draining some fluid. I will have the nurse to culture them this morning, and we will follow up with the culture and sensitivity report when available. A urinalysis was done earlier this morning because he was passing blood clots. I suspect it was from trauma, as he likely had a Castillo cath placed when he was in the OR. Since he is on Lovenox, this would make it easy for him to have bleeding from the trauma of the Castillo cath. The urinalysis earlier this morning showed that he is positive for UTI. A culture has been sent off. We will follow up with the C&S report when it is available. His atrial fibrillation is stable at this time. We will check a digoxin level this morning to see if he is therapeutic. We will also continue him on oral Cardizem. The patient had a low-grade fever earlier this morning; however, he is afebrile now, and his vital signs are stable. Hemoglobin is stable at 9.4. The patient's white blood cell count is still elevated at 17,300. I reviewed the patient's sugars and see some of them are in the low 200s. I will add Levemir 5 units of subcutaneously twice daily for improved glucose control. Past Medical Family Social History Allergies: Allergies No Known Allergies Allergy (Verified 10/13/23 13:28) Review of Systems ROS: Changes notes (describe) (Chills/rigors) Vital Signs and I&O's Vital Signs: Vital Signs Temperature 98.8 F Pulse Rate 77 Pulse Rate 73 Pulse Rate 79 Pulse Rate 79 Pulse Rate 70 Pulse Rate 76 Pulse Rate 77 Pulse Rate 81 Respiratory Rate 23 Respiratory Rate 35 Respiratory Rate 23 Respiratory Rate 24 Respiratory Rate 18 Respiratory Rate 20 Respiratory Rate 22 Respiratory Rate 21 Respiratory Rate 20 Blood Pressure 117/57 Blood Pressure 128/60 Blood Pressure 105/58 Blood Pressure 127/67 Blood Pressure 117/53 Blood Pressure 118/58 Blood Pressure 116/56 Blood Pressure 136/58 O2 Sat by Pulse Oximetry 95 O2 Sat by Pulse Oximetry 94 O2 Sat by Pulse Oximetry 93 O2 Sat by Pulse Oximetry 90 O2 Sat by Pulse Oximetry 96 O2 Sat by Pulse Oximetry 97 O2 Sat by Pulse Oximetry 98 O2 Sat by Pulse Oximetry 91 Intake and Output: Intake & Output 10/12/23 10/13/23 10/14/23 10/15/23 11:59 11:59 11:59 11:59 Intake Total 2516 / 2516 4746 / 4746 Output Total 1000 / 1000 2200 / 2200 Balance 1516 / 1516 2546 / 2546 Physical Exam Oriented: Normal, Time, Person and Place Eyes: Normal Ear: Normal Nose: Normal Throat: Normal Respiratory: Normal Cardiovascular: Normal and Other (left femoral pulse is palpable , left foot warm with biphasic flow at ankle of arteries , right foot cool with no palapble femoral pulse and no doppler signal at the right ankle . ) : Normal Auscultation: Bowel Sounds: Normal Tenderness: Normal Skin: Normal Musculoskeletal: Normal Psychiatric: Anxiety and Agitation Mood Description: Anxious Affect: Anxious Speech Pattern: Clear and Appropriate Laboratory and Diagnostics 10/15/23 07:48 10/15/23 01:35 Labs: Laboratory WBC 17.3 X10^3/uL (3.6-10.0) H 10/15/23 07:48 RBC 3.18 X10^6/uL (4.7-6.0) L 10/15/23 07:48 Hgb 9.4 g/dL (13.5-18.0) L 10/15/23 07:48 Hct 28.9 % (42.0-54.0) L 10/15/23 07:48 MCV 90.8 fL (80.0-100.0) 10/15/23 07:48 MCH 29.6 pg (27.0-34.0) 10/15/23 07:48 MCHC 32.6 g/dL (33.0-35.0) L 10/15/23 07:48 RDW 14.3 % (11.6-16.5) 10/15/23 07:48 Plt Count 350 X10^3/uL (150.0-450.0) 10/15/23 07:48 Plt Count Comment Adequate (ADEQUATE) 10/15/23 07:48 MPV 9.7 fL (7.4-11.0) 10/15/23 07:48 Neut % (Auto) 88.4 % (42.0-75.0) H 10/15/23 07:48 Lymph % (Auto) 6.6 % (21.0-51.0) L 10/15/23 07:48 [place] % (Auto) 3.3 % (0.0-13.0) 10/15/23 07:48 Eos % (Auto) 0.5 % (0.9-2.9) L 10/15/23 07:48 Baso % (Auto) 1.2 % (0.2-1.0) H 10/15/23 07:48 Neut # (Auto) 15.3 x10^3/uL (2.2-4.8) H 10/15/23 07:48 Lymph # (Auto) 1.2 X10^3/uL (1.3-2.9) L 10/15/23 07:48 [place] # (Auto) 0.6 x10^3/uL (0.3-0.8) 10/15/23 07:48 Eos # (Auto) 0.1 x10^3/uL (0.0-0.2) 10/15/23 07:48 Baso # (Auto) 0.2 X10^3/uL (0.0-0.1) H 10/15/23 07:48 Absolute Nucleated RBC 0.0 /100WBC 10/15/23 07:48 Total Counted 100 10/15/23 07:48 Neutrophils % (Manual) 88 % (39-76) H 10/15/23 07:48 Band Neutrophils % 1 % (0-10) 10/15/23 07:48 Lymphocytes % (Manual) 9 % (13-43) L 10/15/23 07:48 Monocytes % (Manual) 2 % (4-9) L 10/15/23 07:48 Eosinophils % (Manual) Cancelled 10/14/23 04:26 Basophils % (Manual) Cancelled 10/14/23 04:26 Metamyelocytes % Cancelled 10/14/23 04:26 Myelocytes % Cancelled 10/14/23 04:26 Promyelocytes % Cancelled 10/14/23 04:26 Nucleated RBCs Cancelled 10/14/23 04:26 Atypical Lymphocytes Cancelled 10/14/23 04:26 Blast Cells Cancelled 10/14/23 04:26 Smudge Cells Cancelled 10/14/23 04:26 Toxic Granulation Cancelled 10/14/23 04:26 Dohle Bodies Cancelled 10/14/23 04:26 Binu Rods Cancelled 10/14/23 04:26 Plt Clumps, EDTA Cancelled 10/14/23 04:26 Giant Platelets Cancelled 10/14/23 04:26 Plt Morphology Comment Normal (NORMAL) 10/15/23 07:48 RBC Morphology Normal (NORMAL) 10/15/23 07:48 Dimorphic RBCs Cancelled 10/14/23 04:26 Polychromasia Cancelled 10/14/23 04:26 Hypochromasia Cancelled 10/14/23 04:26 Poikilocytosis Cancelled 10/14/23 04:26 Basophilic Stippling Cancelled 10/14/23 04:26 Anisocytosis Cancelled 10/14/23 04:26 Microcytosis Cancelled 10/14/23 04:26 Macrocytosis Cancelled 10/14/23 04:26 Spherocytes Cancelled 10/14/23 04:26 Pappenheimer Bodies Cancelled 10/14/23 04:26 Sickle Cells Cancelled 10/14/23 04:26 Target Cells Cancelled 10/14/23 04:26 Tear Drop Cells Cancelled 10/14/23 04:26 Ovalocytes Cancelled 10/14/23 04:26 Stomatocytes Cancelled 10/14/23 04:26 Helmet Cells Cancelled 10/14/23 04:26 [place] Bodies Cancelled 10/14/23 04:26 [place] Rings Cancelled 10/14/23 04:26 [place] Cells Cancelled 10/14/23 04:26 Crenated Cell Cancelled 10/14/23 04:26 Acanthocytes (Spur) Cancelled 10/14/23 04:26 Rouleaux Cancelled 10/14/23 04:26 Schistocytes Cancelled 10/14/23 04:26 Absolute Retic 0.0773 10^6/uL 10/14/23 09:30 Percent Retic 2.28 % (0.8-2.2) H 10/14/23 09:30 APTT 38.9 SECONDS (22.9-36.5) H 10/15/23 07:48 PTT Comment - 10/15/23 07:48 Fibrinogen 831 mg/dL (239-489) H 10/15/23 07:48 Sodium 137 mmol/L (136-145) 10/15/23 01:35 Corrected Sodium 140 mmol/L (136-145) 10/15/23 01:35 Potassium 3.0 mmol/L (3.5-5.1) L 10/15/23 01:35 Chloride 98 mmol/L (98-107) 10/15/23 01:35 Carbon Dioxide 36.8 mmol/L (21-32) H 10/15/23 01:35 BUN 15 mg/dL (7-18) 10/15/23 01:35 Creatinine 1.44 mg/dL (0.70-1.30) H 10/15/23 01:35 Est GFR (MDRD) Af Amer > 60 (>60) 10/15/23 01:35 Est GFR (MDRD) Non-Af 52 (>60) L 10/15/23 01:35 Glucose 228 mg/dL (65-99) H 10/15/23 01:35 POC Glucose (mg/dL) 140 mg/dL (65-99) H 10/15/23 05:06 Hemoglobin A1c 7.5 % 10/13/23 13:30 Calcium 7.7 mg/dL (8.5-10.1) L 10/15/23 01:35 Corrected Calcium 9.5 mg/dL (8.5-10.1) 10/15/23 01:35 Magnesium 2.5 mg/dL (2.0-2.9) 10/14/23 04:26 Iron 14 ug/dL (50-175) L 10/14/23 09:30 TIBC 175 ug/dL (250-450) L 10/14/23 09:30 Transferrin 140 mg/dL (202-364) L 10/14/23 09:30 Ferritin 853 ng/mL (26-388) H 10/14/23 09:30 Total Bilirubin 0.80 mg/dL (0.2-1.0) 10/15/23 01:35 AST 33 Units/L (15-37) 10/15/23 01:35 ALT 17 Units/L (12-78) 10/15/23 01:35 Alkaline Phosphatase 98 Units/L (46-116) 10/15/23 01:35 Troponin I High Sens 59.6 ng/L (4.0-60.0) 10/13/23 17:13 B-Natriuretic Peptide 479 pg/mL (0-79) H 10/14/23 04:26 Total Protein 6.2 g/dL (6.4-8.2) L 10/15/23 01:35 Albumin 1.7 g/dL (3.4-5.0) L 10/15/23 01:35 Globulin 4.5 g/dL (2.5-4.5) 10/15/23 01:35 Albumin/Globulin Ratio 0.4 Ratio (1.1-2.1) L 10/15/23 01:35 Vitamin B12 370 pg/mL (193-986) 10/14/23 09:30 Folate 8.6 ng/mL (>8.6) 10/14/23 09:30 Specimen Type Clean catch urine 10/15/23 03:45 Urine Color Red (YELLOW) 10/15/23 03:45 Urine Appearance Cloudy (CLEAR) 10/15/23 03:45 Urine pH 6.0 (5.0 - 8.0) 10/15/23 03:45 Ur Specific [place] 1.015 (1.000-1.030) 10/15/23 03:45 Urine Protein 3+ (NEGATIVE) 10/15/23 03:45 Urine Glucose (UA) Negative (NEGATIVE) 10/15/23 03:45 Urine Ketones Negative (NEGATIVE) 10/15/23 03:45 Urine Blood 5+ (NEGATIVE) 10/15/23 03:45 Urine Nitrite Positive (NEGATIVE) 10/15/23 03:45 Urine Bilirubin 1+ (NEGATIVE) 10/15/23 03:45 Urine Urobilinogen 2+ (NORMAL) 10/15/23 03:45 Ur Leukocyte Esterase 1+ (NEGATIVE) 10/15/23 03:45 Urine RBC Tntc /HPF (0-3) A 10/15/23 03:45 Urine WBC 10-20 /HPF (0-5) A 10/15/23 03:45 Ur Squamous Epith Cells Few /HPF (NEGATIVE) 10/15/23 03:45 Ur Transition Epith Cell Rare /HPF (NEGATIVE) 10/13/23 20:08 Urine Bacteria 1+ /HPF (NEGATIVE) 10/15/23 03:45 Hyaline Casts Numerous /LPF (NEGATIVE) 10/13/23 20:08 Urine Mucus Moderate /HPF (NEGATIVE) 10/15/23 03:45 Ur Culture Indicated? Yes/culture set up 10/15/23 03:45 Digoxin 0.44 ng/mL (0.9-2) L 10/15/23 01:35 Urine Opiates Screen Negative (NEG=<300) 10/13/23 20:08 Urine Methadone Screen Negative (NEG=<300) 10/13/23 20:08 Ur Barbiturates Screen Negative (NEG=<200) 10/13/23 20:08 Ur Phencyclidine Scrn Negative (NEG=<25) 10/13/23 20:08 Ur Amphetamines Screen Negative (NEG=<1000) 10/13/23 20:08 U Benzodiazepines Scrn Negative (NEG=<200) 10/13/23 20:08 Urine Cocaine Screen Positive (NEG=<300) 10/13/23 20:08 U Marijuana (THC) Screen Negative (NEG=<50) 10/13/23 20:08 Plan (1) Ischemic leg: Status: Acute Plan: Patient will be admitted and placed on therapeutic Lovenox. Will be taken to the operating Suite on 13 of October for attempt to place percutaneous thrombolytic catheter. he is at high risk for limb loss (2) Wound of right foot: Status: Acute Narrative Support Text: Patient had to blisters that have ruptured that were present on his foot yesterday morning. They are currently draining a small amount of fluid at this time. Plan: Check wound culture and sensitivity. Continue IV Maxipime at this time. (3) Leukocytosis: Status: Acute Plan: IV antibiotics , but most likely elevation of WBC due to ischemic right foot. (4) Atrial fibrillation: Status: Acute Qualifiers: Atrial fibrillation type: unspecified chronic Qualified Code(s): I48.20 - Chronic atrial fibrillation, unspecified Plan: patient has pacemaker / defibrillator in place . Patient with atrial fibrillation and Rapid ventricular rate controlled with Diltiazem drip.Consulted Dr Rachel who restarted the patient's digoxin. Will obtain interpolation of the pacemaker /defibrillator to make sure it is functioning well (5) Type 2 diabetes mellitus: Status: Acute Qualifiers: Diabetes mellitus senior care insulin use: without senior care use Plan: 1800 Praneeth ADA diet and sliding scale insulin. I will start Levemir 5 units subcutaneous injections twice daily (6) Essential (primary) hypertension: Status: Acute Narrative Support Text: Patient's hypertension is stable. Plan: patient was hypotensive on admission. we will restart his medications when appropriate (7) Anemia: Status: Acute Narrative Support Text: The iron panel shows that the patient has results that indicate anemia of chronic disease. Plan: Monitor daily CBCs. Check anemia panel. (8) Dehydration: Status: Resolved Narrative Support Text: Resolved Plan: bolus of fluids (9) Hyperlipidemia: Status: Acute Plan: Continue simvastatin 10 mg at at bedtime. (10) Cocaine abuse: Status: Acute Plan: will need to observe for withdrawal and treat accordingly. (11) Urinary tract infection: Status: Acute Qualifiers: Urinary tract infection type: acute cystitis Hematuria presence: with hematuria Qualified Code(s): N30.01 - Acute cystitis with hematuria Plan: The patient is currently on Maxipime. We will follow up with the urine culture and sensitivity results when available. Check we will change antibiotics if needed
[2023-10-15] MEDS: LEVEMIR SC SCH (09:46)
--- NOTE | 2023-10-15 12:41 | NOTE.SOAP ---
Soap Note Note for Day of Date of Exam: 10/15/23 Subjective Data Subjective Data: Unable to get across occlusion of the right external iliac artery and right SFA. Very anxious and tremulous , Right leg painful with dark discoloration of right 4th and 5th toes. A-fib with controlled rate. Objective Data Temperature: 98.3 F Pulse Rate: 73 Respiratory Rate: 36 Blood Pressure: 136/76 O2 Sat by Pulse Oximetry: 94 Objective Data: As above , Hgb=9.4, Cr=1.44, WBC=17.3, K=3.0 Assessment Assessment: Critical ischemia right leg, atrial fibrillation, cocaine withdrawal Plan Plan: Biggest risk factor right now is his cocaine withdrawal which is being treated symptomatically. Will need to delay intervention of right leg due to this . Continue therapuetic Lovenox . High risk of limb loss.
[2023-10-15 13:48] LABS: BASOPHILS # (AUTO) 0.1 X10^3/uL (0.0-0.1); BASOPHILS % (AUTO) 0.7 % (0.2-1.0); EOSINOPHILS # (AUTO) 0.1 x10^3/uL (0.0-0.2); EOSINOPHILS % (AUTO) 0.4 % (0.9-2.9); HEMATOCRIT 29.9 % (42.0-54.0); HEMOGLOBIN 9.7 g/dL (13.5-18.0); LYMPHOCYTES # (AUTO) 1.5 X10^3/uL (1.3-2.9); LYMPHOCYTES % (AUTO) 8.2 % (21.0-51.0); MEAN CORPUSCULAR HEMOGLOBIN 29.5 pg (27.0-34.0); MEAN CORPUSCULAR HGB CONC 32.4 g/dL (33.0-35.0); MEAN PLATELET VOLUME 9.4 fL (7.4-11.0); MONOCYTES # (AUTO) 1.1 x10^3/uL (0.3-0.8); MONOCYTES % (AUTO) 6.1 % (0.0-13.0); NEUTROPHILS # (AUTO) 15.9 x10^3/uL (2.2-4.8); NEUTROPHILS % (AUTO) 84.6 % (42.0-75.0); PLATELET COUNT 355 X10^3/uL (150.0-450.0); RED BLOOD COUNT 3.28 X10^6/uL (4.7-6.0); RED CELL DISTRIBUTION WIDTH 14.5 % (11.6-16.5); WHITE BLOOD COUNT 18.8 X10^3/uL (3.6-10.0)
[2023-10-15 14:08] LABS: BAND NEUTROPHILS % 6 % (0-10); PLATELET MORPHOLOGY COMMENT NORMAL (NORMAL)
[2023-10-15 19:53] LABS: BASOPHILS # (AUTO) 0.1 X10^3/uL (0.0-0.1); BASOPHILS % (AUTO) 0.3 % (0.2-1.0); EOSINOPHILS # (AUTO) 0.1 x10^3/uL (0.0-0.2); EOSINOPHILS % (AUTO) 0.7 % (0.9-2.9); HEMATOCRIT 26.2 % (42.0-54.0); HEMOGLOBIN 8.7 g/dL (13.5-18.0); LYMPHOCYTES # (AUTO) 1.8 X10^3/uL (1.3-2.9); LYMPHOCYTES % (AUTO) 9.9 % (21.0-51.0); MEAN CORPUSCULAR HEMOGLOBIN 29.7 pg (27.0-34.0); MEAN CORPUSCULAR HGB CONC 33.1 g/dL (33.0-35.0); MEAN CORPUSCULAR VOLUME 89.9 fL (80.0-100.0); MEAN PLATELET VOLUME 9.2 fL (7.4-11.0); MONOCYTES # (AUTO) 1.2 x10^3/uL (0.3-0.8); MONOCYTES % (AUTO) 6.5 % (0.0-13.0); NEUTROPHILS # (AUTO) 15.3 x10^3/uL (2.2-4.8); NEUTROPHILS % (AUTO) 82.6 % (42.0-75.0); PLATELET COUNT 332 X10^3/uL (150.0-450.0); RED BLOOD COUNT 2.92 X10^6/uL (4.7-6.0); RED CELL DISTRIBUTION WIDTH 14.2 % (11.6-16.5); WHITE BLOOD COUNT 18.6 X10^3/uL (3.6-10.0)
[2023-10-16 01:50] LABS: EOSINOPHILS # (AUTO) 0.1 x10^3/uL (0.0-0.2); MEAN PLATELET VOLUME 9.1 fL (7.4-11.0); NEUTROPHILS # (AUTO) 13.2 x10^3/uL (2.2-4.8)
[2023-10-16 01:54] LABS: BASOPHILS # (AUTO) 0.1 X10^3/uL (0.0-0.1); BASOPHILS % (AUTO) 0.4 % (0.2-1.0); EOSINOPHILS % (AUTO) 0.6 % (0.9-2.9); HEMATOCRIT 25.7 % (42.0-54.0); HEMOGLOBIN 8.5 g/dL (13.5-18.0); LYMPHOCYTES # (AUTO) 1.7 X10^3/uL (1.3-2.9); LYMPHOCYTES % (AUTO) 10.6 % (21.0-51.0); MEAN CORPUSCULAR HEMOGLOBIN 29.7 pg (27.0-34.0); MEAN CORPUSCULAR HGB CONC 33.1 g/dL (33.0-35.0); MEAN CORPUSCULAR VOLUME 89.9 fL (80.0-100.0); MONOCYTES # (AUTO) 1.3 x10^3/uL (0.3-0.8); MONOCYTES % (AUTO) 8.1 % (0.0-13.0); NEUTROPHILS % (AUTO) 80.3 % (42.0-75.0); PLATELET COUNT 331 X10^3/uL (150.0-450.0); RED BLOOD COUNT 2.86 X10^6/uL (4.7-6.0); WHITE BLOOD COUNT 16.4 X10^3/uL (3.6-10.0)
[2023-10-16 02:03] LABS: ALANINE AMINOTRANSFERASE 19 Units/L (12-78); ALBUMIN 1.7 g/dL (3.4-5.0); ALKALINE PHOSPHATASE 103 Units/L (46-116); ASPARTATE AMINO TRANSFERASE 39 Units/L (15-37); BLOOD UREA NITROGEN 11 mg/dL (7-18); CALCIUM 7.5 mg/dL (8.5-10.1); CARBON DIOXIDE 35.2 mmol/L (21-32); CHLORIDE 98 mmol/L (98-107); COR CA(FOR HYPOALB) 9.3 mg/dL (8.5-10.1); CREATININE 1.15 mg/dL (0.70-1.30); DIGOXIN < 0.30 ng/mL (0.9-2); GLUCOSE 69 mg/dL (65-99); SODIUM 136 mmol/L (136-145); TOTAL PROTEIN 6.1 g/dL (6.4-8.2); eGFR NON BLACK RACES > 60 (>60)
[2023-10-16 02:08] LABS: POTASSIUM 2.9 mmol/L (3.5-5.1)
[2023-10-16] MEDS ORDERED: ATIVAN INJ 2 MG VIAL ONE (02:47)
[2023-10-16] MEDS ORDERED: CONSULT PHARMACY - POTASSIUM & MAGNESIUM XX SCH (03:00)
[2023-10-16] MEDS: K-DUR TAB 20 MEQ PO SCH (03:01)
[2023-10-16] MEDS: ATIVAN INJ 2 MG VIAL IVP PRN ×2 (03:05→07:15)
[2023-10-16] MEDS: SNACK - Diabetic Appropriate PO SCH (07:41)
[2023-10-16] MEDS: ZESTRIL TAB 20 MG ONE (09:40)
--- NOTE | 2023-10-16 10:20 | EKG ---
Test Reason : Afib RVR Blood Pressure : */* mmHG Vent. Rate : 152 BPM Atrial Rate : 138 BPM P-R Int : * ms QRS Dur : 76 ms QT Int : 290 ms P-R-T Axes : * 54 254 degrees QTc Int : 461 ms Poor data quality, interpretation may be adversely affected Atrial fibrillation Nonspecific ST and T wave abnormality Abnormal ECG When compared with ECG of 13-OCT-2023 13:44, rate is elevated QRS duration has decreased ST now depressed in Anterior leads Confirmed by Bharat Ovalle MD ([id number]) on 10/17/2023 7:12:45 AM Referred By: Confirmed By: Bharat Ovalle MD
[2023-10-16] MEDS: HALDOL INJ IVP ONE (10:30)
--- NOTE | 2023-10-16 12:50 | RAD ---
EXAM: CHEST, 1 VIEW HISTORY: CHF and hypoxia COMPARISON: 05/14/2023 FINDINGS: The trachea is midline. The cardiac silhouette is enlarged with a tortuous thoracic aorta. A pacing device overlying the left hemithorax is observed. Increased interstitial changes with prominent va scular markings are observed consistent with underlying CHF.. The bony thorax is unremarkable. IMPRESSION: Increased interstitial changes with prominent vascular markings are observed consistent with underlyi ng CHF. THIS IS AN ELECTRONICALLY VERIFIED FINAL REPORT 10/16/2023 12:47 PM - Electronically signed by Anshul Mojica MD
[2023-10-16] MEDS: LR 1,000 ML IV 1,000 ML with POTASSIUM CHLORIDE INJ 40 MEQ VIAL 40 MEQ, MAGNESIUM SULFA... IV SCH (15:01)
--- NOTE | 2023-10-16 15:41 | NOTE.SOAP ---
Soap Note Note for Day of Date of Exam: 10/16/23 Subjective Data Subjective Data: Patient not physically seen by me today. Will be seen by hospitalist lactation consultant . Had significant anxiety early this AM, most likely withdrawal from cocaine, treated with IV Ativan and controlled.Right foot remains cool with dark discoloeration of right 5th toe Objective Data Temperature: 99.8 F Pulse Rate: 66 Respiratory Rate: 30 Blood Pressure: 151/67 O2 Sat by Pulse Oximetry: 93 Objective Data: Patient resting . No change of exam of the right foot. Assessment Assessment: Ischemic right foot secondary to occlusion of right iliac artery stent and stents of right superficial femoral artery and failed intial percutaneous intervention. Plan Plan: Needs to be over withdrawal before going back to OR as he would be at jenae risk. High risk of limb loss.
[2023-10-16 16:07] LABS: ABG BASE EXCESS 10.3 mmol/L (-2.0-2.0)
[2023-10-16 16:08] LABS: ABG ALLEN TEST POS
[2023-10-16 16:19] LABS: INR 1.39 (0.8-1.3)
[2023-10-16] MEDS: HALDOL INJ IM PRN (16:21)
[2023-10-16] MEDS: LASIX IVP ONE (16:40)
[2023-10-16] MEDS: CATAPRES TAB 0.1 MG PO SCH (16:48)
[2023-10-16 17:09] LABS: BILIRUBIN,URINE 1+ (NEGATIVE); BLOOD/HEMOGLOBIN,URINE 3+ (NEGATIVE); GLUCOSE, URINE NEGATIVE (NEGATIVE); KETONES,URINE NEGATIVE (NEGATIVE); LEUKOCYTE ESTERASE ,URINE 1+ (NEGATIVE); NITRITES,URINE NEGATIVE (NEGATIVE); PROTEIN,URINE 3+ (NEGATIVE); UROBILINOGEN,URINE 2+ (NORMAL)
[2023-10-16 17:10] LABS: APPEARANCE,URINE CLEAR (CLEAR); COLOR,URINE DARK YELLOW (YELLOW)
[2023-10-16 17:17] LABS: BACTERIA,URINE TRACE /HPF (NEGATIVE); SQUAMOUS EPITHELIAL CELL,UR RARE /HPF (NEGATIVE)
--- NOTE | 2023-10-16 17:54 | CT ---
EXAM:BRAIN W/O CONHISTORY:Altered mental statusCOMPARISON:None availableTECHNIQUE:CT of the brain without contrastFINDINGS:Benign dural calcifications. Soft tissue swelling and induration in the left frontal scalp possibly hematoma. Benign basal ganglia mineralization. No hemorrhage or extra-axial collection. Appropriate ventricular size. Focal induration in the posterior scalp, just right of midline indeterminate but possibly representing bruising or hematoma. The mastoid air cells are clear. Zygomatic arches are intact. No skull fracture. The globes are symmetric. Retro-orbital soft tissues are normal.IMPRESSION:No acute intracranial processDose reduction techniques including automated exposure control (AEC) and adjustment of mA and kv were utilized.THIS IS AN ELECTRONICALLY VERIFIED FINAL REPORT10/16/2023 5:51 PM - Electronically signed by Rolf Guerrero MD
[2023-10-16 19:46] LABS: BLOOD UREA NITROGEN 11 mg/dL (7-18); CARBON DIOXIDE 36.5 mmol/L (21-32); CHLORIDE 98 mmol/L (98-107); COR NA(FOR HYPERGLY) 138 mmol/L (136-145); CREATININE 1.23 mg/dL (0.70-1.30); GLUCOSE 130 mg/dL (65-99); POTASSIUM 3.9 mmol/L (3.5-5.1); SODIUM 137 mmol/L (136-145); eGFR NON BLACK RACES > 60 (>60)
--- NOTE | 2023-10-16 20:43 | DR.OPNOTE ---
OP NOTE Pre-Op Diagnosis: critical limb threatening ischemia right leg Post-Op Diagnosis: same Procedure Date Date Of Procedure: 10/14/23 Procedure: PROCEDURE: Diagnostic aortogram , diagnostic arteriogram right lower extremity, mutiple attempts to cross the occluded stents of the right leg, unsuccessful NARRATIVE: The patient was taken to the operative suite and placed in the supine position. The left groin and entire right leg were prepped and draped in sterile fashion. The patient was given intravenous sedation supervised by myself. Time out for the procedure obtained . Ultrasound used to identify the left femoral artery and the skin overlying it infiltrated with 0.5% Marcaine. Ultrasound used to guide puncture of the left femoral artery and a 0.012 inch guide wire placed. Incision made over the guide wire at the skin edge with a # 11 knife blade and a micro sheath placed over the guide wire into the left femoral artery. The small wire exchanged for a 0.035 inch Advantage glide wire and the micro sheath exchanged for a 5- Fr vascular sheath . Omni catheter was placed over the guide wire into the aorta and power injector used to perform diagnostic aortogram showing patent aorta and iliac arteries with complete occlusion of the right external iliac artery stent . Runoff arteriogram right leg carried out from here showing in addition, complete occlusion of the right superficial femoral artery stents and reconstitution of the right popliteal artery but all runoff arteries right leg appear occluded .Patient given 5000 units of IV heparin . The Omni catheter used to steer the guide wire down the right common iliac artery down to the right external iliac artery and the Omni catheter exchanged for a Oxford catheter. Oxford catheter and wire could not cross the occluded right external iliac artery stent .Since a wire would not pass the occlusion from above we elected to perform a retrograde approach as well. Ultrasound used to identify the left posterior and left anterior tibial arteries and multiple attempts were made to pass a wire up both distal arteries but were unsuccessful. The left femoral sheath exchanged for an Angioseal device used to close the puncture of the left femoral artery. Hemostatic jesus ssing placed over the left groin puncture site and the right ankle attempted access sites . The patientwas taken to the CCU in stable condition. Plan to try again via the left brachial artery to get a sheath into the right iliac artery to help with pushability which we could not do from the left groin going over the bifurcation into the right common iliac artery. I am afraid that cocaine withdrawal may delay this procedure. He is at jenae risk for limb loss. I have spoken to his sister and explained all this to her. She understands that he may lose his leg to amputation. Type of Anesthesia: Local (0.5% Marcaine ) Anesthesia Comment: plus MAC Findings: completely occluded right external iliac artery stent, completely occluded right superficial femoral artery stents , reconstitution right popliteal artery , occluded runoff vessels right leg Type of Fluids Used:: Lactated Ringers Total Amount of Fluid Infused:: 600cc Urine output: 400cc EBL: 200 cc Complications:: none Needle/Sponge Count:: correct Disposition/Condition: Pt. tolerated procedure without difficulty. Patient taken back to the ICU in stable condition.
[2023-10-16] MEDS: LIBRIUM PO PRN (21:28)
[2023-10-17] MEDS: LASIX IVP SCH (05:35)
[2023-10-17 06:36] LABS: BASOPHILS # (AUTO) 0.1 X10^3/uL (0.0-0.1); BASOPHILS % (AUTO) 0.7 % (0.2-1.0); EOSINOPHILS # (AUTO) 0.1 x10^3/uL (0.0-0.2); EOSINOPHILS % (AUTO) 0.7 % (0.9-2.9); HEMATOCRIT 26.8 % (42.0-54.0); HEMOGLOBIN 8.8 g/dL (13.5-18.0); LYMPHOCYTES # (AUTO) 1.6 X10^3/uL (1.3-2.9); LYMPHOCYTES % (AUTO) 12.5 % (21.0-51.0); MEAN CORPUSCULAR HEMOGLOBIN 29.8 pg (27.0-34.0); MEAN CORPUSCULAR VOLUME 90.3 fL (80.0-100.0); MEAN PLATELET VOLUME 9.3 fL (7.4-11.0); MONOCYTES # (AUTO) 1.1 x10^3/uL (0.3-0.8); MONOCYTES % (AUTO) 8.2 % (0.0-13.0); NEUTROPHILS # (AUTO) 10.2 x10^3/uL (2.2-4.8); NEUTROPHILS % (AUTO) 77.9 % (42.0-75.0); PLATELET COUNT 393 X10^3/uL (150.0-450.0); RED BLOOD COUNT 2.97 X10^6/uL (4.7-6.0); RED CELL DISTRIBUTION WIDTH 14.5 % (11.6-16.5)
[2023-10-17 06:45] LABS: ALANINE AMINOTRANSFERASE 22 Units/L (12-78); ALBUMIN 1.7 g/dL (3.4-5.0); ALKALINE PHOSPHATASE 118 Units/L (46-116); ASPARTATE AMINO TRANSFERASE 43 Units/L (15-37); BLOOD UREA NITROGEN 12 mg/dL (7-18); CARBON DIOXIDE 36.8 mmol/L (21-32); CHLORIDE 97 mmol/L (98-107); COR CA(FOR HYPOALB) 9.8 mg/dL (8.5-10.1); COR NA(FOR HYPERGLY) 135 mmol/L (136-145); CREATININE 1.31 mg/dL (0.70-1.30); GLUCOSE 117 mg/dL (65-99); POTASSIUM 3.9 mmol/L (3.5-5.1); SODIUM 135 mmol/L (136-145); TOTAL PROTEIN 6.6 g/dL (6.4-8.2); eGFR NON BLACK RACES 58 (>60)
[2023-10-17 07:10] LABS: BASOPHILS % (MANUAL) 1 % (0-1)
[2023-10-17 07:13] LABS: PLATELET MORPHOLOGY COMMENT NORMAL (NORMAL)
[2023-10-17 07:14] LABS: TARGET CELLS PRESENT
--- NOTE | 2023-10-17 12:45 | RAD ---
EXAM:CHEST, 1 VIEWHISTORY:Shortness of breath, altered mental statusCOMPARISON:10/16/2023FINDINGS:The trachea is midline. The cardiac silhouette is enlarged with a tortuous thoracic aorta. A pacing device overlying the left hemithorax is observed. The lungs are clear without focal infiltrate or effusion. The bony thorax is unremarkable.IMPRESSION:No acute cardiopulmonary disease.THIS IS AN ELECTRONICALLY VERIFIED FINAL REPORT10/17/2023 12:41 PM - Electronically signed by Anshul Mojica MD
--- NOTE | 2023-10-17 22:57 | NOTE.SOAP ---
Soap Note Note for Day of Date of Exam: 10/17/23 Subjective Data Subjective Data: Patient had some SOB yesterday and CXR howed some evidence of CHF, repeat CXR after diuresis . Withdrawal symptoms improved , on PO Librium. HAs early changes of ischemia right foot with plantar discoloration over 4th and 5th toes plantar surface. Objective Data Temperature: 98.1 F Pulse Rate: 76 Respiratory Rate: 24 Blood Pressure: 109/72 O2 Sat by Pulse Oximetry: 98 Objective Data: as above Cr=06/02, K+ =3.9 atrial fibrillation with controlled rate Assessment Assessment: Ischemic right foot, awaiting withdrawal to resolve an to OR to try and revacularize the right leg. Plan Plan: as above
[2023-10-18] MEDS: ATIVAN INJ 2 MG VIAL IVP PRN (01:50)
[2023-10-18 05:17] LABS: MEAN CORPUSCULAR HEMOGLOBIN 29.8 pg (27.0-34.0)
[2023-10-18 05:24] LABS: ALANINE AMINOTRANSFERASE 21 Units/L (12-78); ALBUMIN 1.6 g/dL (3.4-5.0); ALKALINE PHOSPHATASE 118 Units/L (46-116); ASPARTATE AMINO TRANSFERASE 46 Units/L (15-37); BLOOD UREA NITROGEN 12 mg/dL (7-18); CARBON DIOXIDE 35.6 mmol/L (21-32); CHLORIDE 96 mmol/L (98-107); COR CA(FOR HYPOALB) 9.9 mg/dL (8.5-10.1); COR NA(FOR HYPERGLY) 136 mmol/L (136-145); CREATININE 1.25 mg/dL (0.70-1.30); GLUCOSE 123 mg/dL (65-99); POTASSIUM 3.9 mmol/L (3.5-5.1); SODIUM 135 mmol/L (136-145); TOTAL PROTEIN 6.5 g/dL (6.4-8.2); eGFR NON BLACK RACES > 60 (>60)
[2023-10-18 05:27] LABS: BASOPHILS # (AUTO) 0.4 X10^3/uL (0.0-0.1); BASOPHILS % (AUTO) 2.4 % (0.2-1.0); EOSINOPHILS # (AUTO) 0.2 x10^3/uL (0.0-0.2); EOSINOPHILS % (AUTO) 1.1 % (0.9-2.9); HEMATOCRIT 26.3 % (42.0-54.0); HEMOGLOBIN 8.8 g/dL (13.5-18.0); LYMPHOCYTES # (AUTO) 0.7 X10^3/uL (1.3-2.9); LYMPHOCYTES % (AUTO) 4.5 % (21.0-51.0); MEAN CORPUSCULAR HGB CONC 33.2 g/dL (33.0-35.0); MEAN CORPUSCULAR VOLUME 89.7 fL (80.0-100.0); MEAN PLATELET VOLUME 9.7 fL (7.4-11.0); MONOCYTES % (AUTO) 6.7 % (0.0-13.0); NEUTROPHILS % (AUTO) 85.3 % (42.0-75.0); PLATELET COUNT 397 X10^3/uL (150.0-450.0); RED BLOOD COUNT 2.94 X10^6/uL (4.7-6.0); RED CELL DISTRIBUTION WIDTH 14.6 % (11.6-16.5); WHITE BLOOD COUNT 15.2 X10^3/uL (3.6-10.0)
[2023-10-18 05:43] LABS: BASOPHILS % (MANUAL) 1 % (0-1)
[2023-10-18 05:45] LABS: PLATELET MORPHOLOGY COMMENT NORMAL (NORMAL)
--- NOTE | 2023-10-18 07:55 | RAD ---
EXAM:CHEST, 1 VIEWHISTORY:CHF;COMPARISON:10/17/2023 r.br.br.br.br.br abnormality to suggest pneumonia. No pleural effusion.Cardiomegaly is present. But unchanged.The bones are unremarkable.A left subclavian ICD is present with the leads in expected location. EKG leads are noted.IMPRESSION:1. Improved venous congestionTHIS IS AN ELECTRONICALLY VERIFIED FINAL REPORT10/18/2023 7:44 AM - Electronically signed by Jeffrey Harvey MD
--- NOTE | 2023-10-18 08:15 | EKG ---
Test Reason : Tachycardia Blood Pressure : */* mmHG Vent. Rate : 108 BPM Atrial Rate : * BPM P-R Int : * ms QRS Dur : 74 ms QT Int : 348 ms P-R-T Axes : * 53 229 degrees QTc Int : 466 ms Atrial fibrillation with rapid ventricular response T wave abnormality, consider lateral ischemia Abnormal ECG When compared with ECG of 16-OCT-2023 10:02, Non-specific change in ST segment in Inferior leads Confirmed by Bharat Ovalle MD ([id number]) on 10/19/2023 7:31:43 AM Referred By: Confirmed By: Bharat Ovalle MD
[2023-10-18] MEDS: CARDIZEM CD 180 MG 24-HR PO SCH (08:54)
[2023-10-18] MEDS: LANOXIN PO SCH (08:55)
--- NOTE | 2023-10-18 22:13 | PCM.PROG ---
Progress Note Progress Note for Day of Date of Exam: 10/18/23 Subjective Subjective: The graft the patient set up on the edge of the bed this morning and his heart rate went up to 136. Fluid like he had an exacerbation of his atrial fibrillation. We will increase his digoxin to 0.25 mg p.o. daily and increase his Cardizem CD from 120 mg daily to 180 mg daily. We will also check his digoxin level this morning. His previous digoxin levels show that he has been nontherapeutic. Today, his chest x-ray showed an improvement in his pulmonary edema. Dr. Hinkle plans on taking him to the OR again tomorrow to try and improve his blood flow to his right lower extremity. The patient's hemoglobin is at 8.8 today; however, his vital signs are stable. His glucose levels look better controlled since we added on the Levemir at the end of last week. Past Medical Family Social History Allergies: Allergies No Known Allergies Allergy (Verified 10/13/23 13:28) Review of Systems ROS: Changes notes (describe) (Chills/rigors) Vital Signs and I&O's Vital Signs: Vital Signs Temperature 97.9 F Temperature 98.1 F Pulse Rate 81 Pulse Rate 84 Pulse Rate 74 Pulse Rate 83 Pulse Rate 84 Pulse Rate 80 Pulse Rate 80 Pulse Rate 73 Pulse Rate 78 Pulse Rate 75 Pulse Rate 129 Respiratory Rate 27 Respiratory Rate 39 Respiratory Rate 39 Respiratory Rate 37 Respiratory Rate 24 Respiratory Rate 24 Respiratory Rate 24 Respiratory Rate 24 Respiratory Rate 24 Respiratory Rate 23 Respiratory Rate 32 Respiratory Rate 23 Respiratory Rate 22 Respiratory Rate 38 Blood Pressure 140/84 Blood Pressure 122/71 Blood Pressure 122/71 Blood Pressure 122/71 Blood Pressure 122/71 Blood Pressure 128/76 Blood Pressure 128/76 Blood Pressure 94/54 Blood Pressure 94/54 Blood Pressure 117/76 Blood Pressure 108/58 Blood Pressure 108/73 Blood Pressure 121/76 O2 Sat by Pulse Oximetry 92 O2 Sat by Pulse Oximetry 97 O2 Sat by Pulse Oximetry 95 O2 Sat by Pulse Oximetry 87 O2 Sat by Pulse Oximetry 83 O2 Sat by Pulse Oximetry 91 O2 Sat by Pulse Oximetry 91 O2 Sat by Pulse Oximetry 95 O2 Sat by Pulse Oximetry 95 O2 Sat by Pulse Oximetry 99 O2 Sat by Pulse Oximetry 95 Intake and Output: Intake & Output 06/15/24 06/16/24 06/17/24 06/18/24 11:59 11:59 11:59 11:59 Intake Total 3711 / 3711 2299 / 2299 2206 / 2206 1322 / 1322 Output Total 2650 / 2650 3725 / 3725 1450 / 1450 Balance 3711 / 3711 -351 / -351 -1519 / -1519 -128 / -128 Physical Exam Oriented: Normal, Time, Person and Place Eyes: Normal Ear: Normal Nose: Normal Throat: Normal Respiratory: Normal Cardiovascular: Normal and Other (left femoral pulse is palpable , left foot warm with biphasic flow at ankle of arteries , right foot cool with no palapble femoral pulse and no doppler signal at the right ankle . ) : Normal Auscultation: Bowel Sounds: Normal Tenderness: Normal Skin: Normal Musculoskeletal: Normal Psychiatric: Anxiety and Agitation Mood Description: Anxious Affect: Anxious Speech Pattern: Clear and Appropriate Laboratory and Diagnostics 10/18/23 04:00 10/18/23 04:00 Labs: 10/15/23 08:45 Foot - Right Wound Gram Stain - Final 10/15/23 08:45 Foot - Right Wound Culture - Preliminary 10/16/23 16:30 Urine,Catheterized Urine Culture - Final 10/15/23 03:45 Urine,Clean Catch Urine Culture - Final 10/13/23 20:48 Blood Blood Culture - Preliminary 10/13/23 20:37 Blood Blood Culture - Preliminary Laboratory WBC 15.2 X10^3/uL (3.6-10.0) H 10/18/23 04:00 RBC 2.94 X10^6/uL (4.7-6.0) L 10/18/23 04:00 Hgb 8.8 g/dL (13.5-18.0) L 10/18/23 04:00 Hct 26.3 % (42.0-54.0) L 10/18/23 04:00 MCV 89.7 fL (80.0-100.0) 10/18/23 04:00 MCH 29.8 pg (27.0-34.0) 10/18/23 04:00 MCHC 33.2 g/dL (33.0-35.0) 10/18/23 04:00 RDW 14.6 % (11.6-16.5) 10/18/23 04:00 Plt Count 397 X10^3/uL (150.0-450.0) 10/18/23 04:00 Plt Count Comment Adequate (ADEQUATE) 10/18/23 04:00 MPV 9.7 fL (7.4-11.0) 10/18/23 04:00 Neut % (Auto) 85.3 % (42.0-75.0) H 10/18/23 04:00 Lymph % (Auto) 4.5 % (21.0-51.0) L 10/18/23 04:00 [facility] % (Auto) 6.7 % (0.0-13.0) 10/18/23 04:00 Eos % (Auto) 1.1 % (0.9-2.9) 10/18/23 04:00 Baso % (Auto) 2.4 % (0.2-1.0) H 10/18/23 04:00 Neut # (Auto) 13.0 x10^3/uL (2.2-4.8) H 10/18/23 04:00 Lymph # (Auto) 0.7 X10^3/uL (1.3-2.9) L 10/18/23 04:00 [facility] # (Auto) 1.0 x10^3/uL (0.3-0.8) H 10/18/23 04:00 Eos # (Auto) 0.2 x10^3/uL (0.0-0.2) 10/18/23 04:00 Baso # (Auto) 0.4 X10^3/uL (0.0-0.1) H 10/18/23 04:00 Absolute Nucleated RBC 0.2 /100WBC 10/18/23 04:00 Total Counted 100 10/18/23 04:00 Neutrophils % (Manual) 79 % (39-76) H 10/18/23 04:00 Band Neutrophils % 6 % (0-10) 10/15/23 13:35 Lymphocytes % (Manual) 11 % (13-43) L 10/18/23 04:00 Monocytes % (Manual) 7 % (4-9) 10/18/23 04:00 Eosinophils % (Manual) 2 % (0-6) 10/18/23 04:00 Basophils % (Manual) 1 % (0-1) 10/18/23 04:00 Metamyelocytes % Cancelled 10/14/23 04:26 Myelocytes % Cancelled 10/14/23 04:26 Promyelocytes % Cancelled 10/14/23 04:26 Nucleated RBCs Cancelled 10/14/23 04:26 Atypical Lymphocytes Cancelled 10/14/23 04:26 Blast Cells Cancelled 10/14/23 04:26 Smudge Cells Cancelled 10/14/23 04:26 Toxic Granulation Cancelled 10/14/23 04:26 Dohle Bodies Cancelled 10/14/23 04:26 Binu Rods Cancelled 10/14/23 04:26 Plt Clumps, EDTA Cancelled 10/14/23 04:26 Giant Platelets Cancelled 10/14/23 04:26 Plt Morphology Comment Normal (NORMAL) 10/18/23 04:00 RBC Morphology Normal (NORMAL) 10/18/23 04:00 Dimorphic RBCs Cancelled 10/14/23 04:26 Polychromasia Cancelled 10/14/23 04:26 Hypochromasia Cancelled 10/14/23 04:26 Poikilocytosis Cancelled 10/14/23 04:26 Basophilic Stippling Cancelled 10/14/23 04:26 Anisocytosis Cancelled 10/14/23 04:26 Microcytosis Cancelled 10/14/23 04:26 Macrocytosis Cancelled 10/14/23 04:26 Spherocytes Cancelled 10/14/23 04:26 Pappenheimer Bodies Cancelled 10/14/23 04:26 Sickle Cells Cancelled 10/14/23 04:26 Target Cells Present 10/17/23 06:05 Tear Drop Cells Cancelled 10/14/23 04:26 Ovalocytes Cancelled 10/14/23 04:26 Stomatocytes Cancelled 10/14/23 04:26 Helmet Cells Cancelled 10/14/23 04:26 Lujan-Reddick Bodies Cancelled 10/14/23 04:26 Dewy Rose Rings Cancelled 10/14/23 04:26 Mona Cells Cancelled 10/14/23 04:26 Crenated Cell Cancelled 10/14/23 04:26 Acanthocytes (Spur) Cancelled 10/14/23 04:26 Rouleaux Cancelled 10/14/23 04:26 Schistocytes Cancelled 10/14/23 04:26 Absolute Retic 0.0773 10^6/uL 10/14/23 09:30 Percent Retic 2.28 % (0.8-2.2) H 10/14/23 09:30 PT 16.7 SECONDS (11.8-14.3) 10/16/23 16:04 INR Target Range - 10/16/23 16:04 INR 1.39 (0.8-1.3) H 10/16/23 16:04 APTT 57.2 SECONDS (22.9-36.5) H 10/16/23 01:35 PTT Comment - 10/16/23 01:35 Fibrinogen 771 mg/dL (239-489) H 10/16/23 01:35 Factor XII Activity 90 10/13/23 16:14 Sample Site Rrad 10/16/23 16:03 ABG pH 7.570 (7.35-7.45) H* 10/16/23 16:03 ABG pCO2 36.0 mmHg (35.0-45.0) 10/16/23 16:03 ABG pO2 61.0 mmHg (80.0-100.0) L 10/16/23 16:03 ABG HCO3 33.0 mmol/L (22-26) H* 10/16/23 16:03 ABG O2 Saturation 94.0 % (90-100) 10/16/23 16:03 ABG Base Excess 10.3 mmol/L (-2.0-2.0) H 10/16/23 16:03 Ronnie Test Pos 10/16/23 16:03 A-a Gradient 122.0 mmHg 10/16/23 16:03 FiO2 32.0 10/16/23 16:03 Blood Gas Comments Pt holly well elj cdn 10/16/23 16:03 Sodium 135 mmol/L (136-145) L 10/18/23 04:00 Corrected Sodium 136 mmol/L (136-145) 10/18/23 04:00 Potassium 3.9 mmol/L (3.5-5.1) 10/18/23 04:00 Chloride 96 mmol/L (98-107) L 10/18/23 04:00 Carbon Dioxide 35.6 mmol/L (21-32) H 10/18/23 04:00 BUN 12 mg/dL (7-18) 10/18/23 04:00 Creatinine 1.25 mg/dL (0.70-1.30) 10/18/23 04:00 Est GFR (MDRD) Af Amer > 60 (>60) 10/18/23 04:00 Est GFR (MDRD) Non-Af > 60 (>60) 10/18/23 04:00 Glucose 123 mg/dL (65-99) H 10/18/23 04:00 POC Glucose (mg/dL) 137 mg/dL (65-99) H 10/18/23 19:47 Hemoglobin A1c 7.5 % 10/13/23 13:30 Calcium 8.0 mg/dL (8.5-10.1) L 10/18/23 04:00 Corrected Calcium 9.9 mg/dL (8.5-10.1) 10/18/23 04:00 Magnesium 2.0 mg/dL (2.0-2.9) 10/16/23 01:35 Iron 14 ug/dL (50-175) L 10/14/23 09:30 TIBC 175 ug/dL (250-450) L 10/14/23 09:30 Transferrin 140 mg/dL (202-364) L 10/14/23 09:30 Ferritin 853 ng/mL (26-388) H 10/14/23 09:30 Total Bilirubin 0.90 mg/dL (0.2-1.0) 10/18/23 04:00 AST 46 Units/L (15-37) H 10/18/23 04:00 ALT 21 Units/L (12-78) 10/18/23 04:00 Alkaline Phosphatase 118 Units/L (46-116) H 10/18/23 04:00 Ammonia < 10 umol/L (11-32) L 10/16/23 16:04 Troponin I High Sens 59.6 ng/L (4.0-60.0) 10/13/23 17:13 B-Natriuretic Peptide 874 pg/mL (0-79) H 10/16/23 01:30 Total Protein 6.5 g/dL (6.4-8.2) 10/18/23 04:00 Albumin 1.6 g/dL (3.4-5.0) L 10/18/23 04:00 Globulin 4.9 g/dL (2.5-4.5) H 10/18/23 04:00 Albumin/Globulin Ratio 0.3 Ratio (1.1-2.1) L 10/18/23 04:00 Vitamin B12 370 pg/mL (193-986) 10/14/23 09:30 Folate 8.6 ng/mL (>8.6) 10/14/23 09:30 Specimen Type Catherized urine 10/16/23 16:30 Urine Color Dark yellow (YELLOW) 10/16/23 16:30 Urine Appearance Clear (CLEAR) 10/16/23 16:30 Urine pH 6.0 (5.0 - 8.0) 10/16/23 16:30 Ur Specific [place] 1.020 (1.000-1.030) 10/16/23 16:30 Urine Protein 3+ (NEGATIVE) 10/16/23 16: Urine Glucose (UA) Negative (NEGATIVE) 10/16/23 16:30 Urine Ketones Negative (NEGATIVE) 10/16/23 16:30 Urine Blood 3+ (NEGATIVE) 10/16/23 16:30 Urine Nitrite Negative (NEGATIVE) 10/16/23 16:30 Urine Bilirubin 1+ (NEGATIVE) 10/16/23 16:30 Urine Urobilinogen 2+ (NORMAL) 10/16/23 16:30 Ur Leukocyte Esterase 1+ (NEGATIVE) 10/16/23 16:30 Urine RBC 3-5 /HPF (0-3) A 10/16/23 16:30 Urine WBC 3-5 /HPF (0-5) 10/16/23 16:30 Ur Squamous Epith Cells Rare /HPF (NEGATIVE) 10/16/23 16:30 Ur Transition Epith Cell Rare /HPF (NEGATIVE) 10/13/23 20:08 Amorphous Sediment Trace /HPF (NEGATIVE) 10/16/23 16:30 Urine Bacteria Trace /HPF (NEGATIVE) 10/16/23 16:30 Hyaline Casts Numerous /LPF (NEGATIVE) 10/13/23 20:08 Urine Mucus Few /HPF (NEGATIVE) 10/16/23 16:30 Ur Culture Indicated? Yes/culture set up 10/16/23 16:30 Digoxin 0.43 ng/mL (0.9-2) L 10/18/23 04:00 Urine Opiates Screen Negative (NEG=<300) 10/13/23 20:08 Urine Methadone Screen Negative (NEG=<300) 10/13/23 20:08 Ur Barbiturates Screen Negative (NEG=<200) 10/13/23 20:08 Ur Phencyclidine Scrn Negative (NEG=<25) 10/13/23 20:08 Ur Amphetamines Screen Negative (NEG=<1000) 10/13/23 20:08 U Benzodiazepines Scrn Negative (NEG=<200) 10/13/23 20:08 Urine Cocaine Screen Positive (NEG=<300) 10/13/23 20:08 U Marijuana (THC) Screen Negative (NEG=<50) 10/13/23 20:08 Infect Dis PCR Plus see scanned report 10/15/23 03:45 Radiology Reviewed: Yes Plan (1) Ischemic leg: Status: Acute Plan: Dr. Hinkle, vascular surgeon will be taking the patient to the OR tomorrow to try and improve his blood flow to his right lower extremity. (2) Wound of right foot: Status: Acute Plan: Check wound culture and sensitivity. Continue IV Maxipime at this time. (3) Leukocytosis: Status: Acute Plan: IV antibiotics , but most likely elevation of WBC due to ischemic right foot. (4) Atrial fibrillation: Status: Acute Qualifiers: Atrial fibrillation type: unspecified chronic Qualified Code(s): I48.20 - Chronic atrial fibrillation, unspecified Plan: patient has pacemaker / defibrillator in place . Patient with atrial fibrillation and Rapid ventricular rate controlled with Diltiazem drip.Consulted Dr Rachel who restarted the patient's digoxin. Will obtain interpolation of the pacemaker /defibrillator to make sure it is functioning well (5) Type 2 diabetes mellitus: Status: Acute Qualifiers: Diabetes mellitus halfway insulin use: without assistant terminal manager use Plan: 1800 Praneeth ADA diet and sliding scale insulin. I will start Levemir 5 units subcutaneous injections twice daily (6) Essential (primary) hypertension: Status: Acute Plan: patient was hypotensive on admission. we will restart his medications when appropriate (7) Anemia: Status: Acute Plan: Monitor daily CBCs. Check anemia panel. (8) Dehydration: Status: Resolved Plan: bolus of fluids (9) Hyperlipidemia: Status: Acute Plan: Continue simvastatin 10 mg at at bedtime. (10) Cocaine abuse: Status: Acute Plan: will need to observe for withdrawal and treat accordingly. (11) Urinary tract infection: Status: Acute Qualifiers: Urinary tract infection type: acute cystitis Hematuria presence: with hematuria Qualified Code(s): N30.01 - Acute cystitis with hematuria Plan: The patient is currently on Maxipime. We will follow up with the urine culture and sensitivity results when available. Check we will change antibiotics if needed
--- NOTE | 2023-10-18 23:38 | NOTE.SOAP ---
Soap Note Note for Day of Date of Exam: 10/18/23 Subjective Data Subjective Data: Patient with ischemic right leg and occluded right iliac and right SFA stents . Had episode of RVR today. Digoxin and Cardiazem increased , Withdrawal seems to be resolved. Stable vitals and answers all questions sppropriately . Objective Data Pulse Rate: 81 Respiratory Rate: 27 Blood Pressure: 140/84 O2 Sat by Pulse Oximetry: 92 Objective Data: as above . Right foot cool, still moves all toes. Hgb=8.8, Cr=1.25, K=3.9 Assessment Assessment: critical ischemia right leg, atrial fibrillation, cocaine withdrawal. Plan Plan: to OR inMA
[2023-10-19] MEDS: HIBICLENS WASH EXT ONE (03:34)
[2023-10-19 05:09] LABS: BASOPHILS # (AUTO) 0.1 X10^3/uL (0.0-0.1); BASOPHILS % (AUTO) 0.5 % (0.2-1.0); EOSINOPHILS # (AUTO) 0.1 x10^3/uL (0.0-0.2); EOSINOPHILS % (AUTO) 0.6 % (0.9-2.9); HEMATOCRIT 25.6 % (42.0-54.0); HEMOGLOBIN 8.3 g/dL (13.5-18.0); LYMPHOCYTES # (AUTO) 1.5 X10^3/uL (1.3-2.9); LYMPHOCYTES % (AUTO) 9.6 % (21.0-51.0); MEAN CORPUSCULAR HEMOGLOBIN 29.2 pg (27.0-34.0); MEAN CORPUSCULAR HGB CONC 32.2 g/dL (33.0-35.0); MEAN CORPUSCULAR VOLUME 90.6 fL (80.0-100.0); MONOCYTES # (AUTO) 1.4 x10^3/uL (0.3-0.8); MONOCYTES % (AUTO) 9.1 % (0.0-13.0); NEUTROPHILS # (AUTO) 12.1 x10^3/uL (2.2-4.8); NEUTROPHILS % (AUTO) 80.2 % (42.0-75.0); PLATELET COUNT 360 X10^3/uL (150.0-450.0); RED BLOOD COUNT 2.82 X10^6/uL (4.7-6.0); RED CELL DISTRIBUTION WIDTH 14.9 % (11.6-16.5); WHITE BLOOD COUNT 15.1 X10^3/uL (3.6-10.0)
[2023-10-19 05:26] LABS: ALANINE AMINOTRANSFERASE 24 Units/L (12-78); ALBUMIN 1.5 g/dL (3.4-5.0); ALKALINE PHOSPHATASE 117 Units/L (46-116); ASPARTATE AMINO TRANSFERASE 60 Units/L (15-37); BLOOD UREA NITROGEN 13 mg/dL (7-18); CALCIUM 8.1 mg/dL (8.5-10.1); CARBON DIOXIDE 33.6 mmol/L (21-32); CHLORIDE 95 mmol/L (98-107); COR CA(FOR HYPOALB) 10.1 mg/dL (8.5-10.1); COR NA(FOR HYPERGLY) 133 mmol/L (136-145); DIGOXIN 0.35 ng/mL (0.9-2); GLUCOSE 132 mg/dL (65-99); POTASSIUM 4.1 mmol/L (3.5-5.1); SODIUM 132 mmol/L (136-145); TOTAL PROTEIN 6.5 g/dL (6.4-8.2); eGFR NON BLACK RACES > 60 (>60)
[2023-10-19 05:31] LABS: PLATELET MORPHOLOGY COMMENT NORMAL (NORMAL)
[2023-10-19] MEDS ORDERED: HIBICLENS WASH ONE (06:00)
--- NOTE | 2023-10-19 06:52 | RAD ---
EXAM:Portable chestHISTORY:Congestive heart failureCOMPARISON:10/18/2023FINDINGS:The re is a pacemaker present in the left axilla. Heart is enlarged. No definite congestive heart failure identified on today's examination. No acute alveolar infiltrates. No pleural effusion or pneumothorax. Bony thorax is unremarkable.IMPRESSION:Cardiomegaly without congestive heart failureNo infiltratesTHIS IS AN ELECTRONICALLY VERIFIED FINAL REPORT10/19/2023 6:48 AM - Electronically signed by Gustabo Jacobo MD
[2023-10-19] MEDS: NS 1,000 ML IV 1,000 ML ONE ×2 (13:22→15:42)
[2023-10-19] MEDS: FENTANYL VIAL INJ 100 mcg ONE (13:47)
[2023-10-19] MEDS: ANCEF VIAL 1 GRAM ONE (13:47)
[2023-10-19] MEDS: KETAMINE HCL ONE (13:47)
[2023-10-19] MEDS: VERSED ONE (13:47)
[2023-10-19] MEDS: DIPRIVAN VIAL 20 ML ONE ×5 (13:47→15:34)
[2023-10-19] MEDS: NS 100 ML IV 100 ML ONE (13:47)
[2023-10-19] MEDS: OFIRMEV IV 1000 MG VIAL 1,000 MG/100 ML VIAL IV ONE (14:05)
[2023-10-19] MEDS: PEPCID 20 MG VIAL ONE (14:06)
[2023-10-19] MEDS: DECADRON INJ ONE (14:06)
[2023-10-19] MEDS: ZOFRAN INJ 4 MG VIAL ONE (14:06)
[2023-10-19] MEDS: HEPARIN SODIUM IN D5W 75,000 UNITS/1,500 ML BAG ONE (14:14)
[2023-10-19] MEDS: MARCAINE 0.5% ONE (14:14)
[2023-10-19] MEDS: VISIPAQUE 100 ML ONE (14:14)
[2023-10-19] MEDS: HEPARIN SODIUM INJ 5000 UNITS ONE ×2 (14:20→15:20)
[2023-10-19] MEDS: NEO-SYNEPHRINE INJ ONE (14:25)
[2023-10-19] MEDS: ROBINUL ONE (14:27)
[2023-10-19] MEDS: ACTIVASE CATHFLO ONE (15:43)
[2023-10-19] MEDS: ACTIVASE CATHFLO 12 MG in NS 250 ML IV 228 ML IV SCH (16:20)
--- NOTE | 2023-10-19 18:58 | OR.IMMED ---
IMMEDIATE POST-OP NOTE Immediate Post-Op Note Date of surgery/procedure: 10/19/23 Pre-Op Diagnosis: thrombosis right external iliac stent and superficial femoral artery stents x 2 . Critiical limb threatening ischemia right leg Post-Op Diagnosis: same Procedure: Approach via the left brachial artery, required right femoral artery to place a snare to get the catheter down the aorta. Diagnostic aortogram, diagnostic arteriogram right leg, Plays ecos thrombolytic catheter across thrombosis of stints of the right external iliac artery and the right superficial femoral artery Description of Procedure: dictated Surgeon/Detailer Furniture: Arin Findings: normal appearing aorta, patent right common iliac artery, occluded stent of the right external iliac artery and occluded stents times 2 in the proximal right superficial femoral artery with reconstitution of flow below the stents in the right superficial femoral artery Estimated Blood Loss: 200cc Complications: none, just difficult case Progress Notes: To CCU, careful monitoring, routine orders and labs for EKOS catheter infusion of TPA. Will run TPA x 24 hours and then return to OR 10/21/2023 for arteriogram and possible peripheral thrombectomy, possible angioplasty and possible additional stent placement. patient is at high risk of limb loss. I has discussed this with his sister in person.
[2023-10-19 19:24] LABS: EOSINOPHILS % (AUTO) 0.1 % (0.9-2.9); LYMPHOCYTES # (AUTO) 0.8 X10^3/uL (1.3-2.9); PLATELET COUNT 388 X10^3/uL (150.0-450.0)
[2023-10-19 19:29] LABS: BASOPHILS % (AUTO) 0.2 % (0.2-1.0); HEMOGLOBIN 8.9 g/dL (13.5-18.0); LYMPHOCYTES % (AUTO) 4.3 % (21.0-51.0); MEAN CORPUSCULAR HEMOGLOBIN 29.9 pg (27.0-34.0); MEAN CORPUSCULAR HGB CONC 32.9 g/dL (33.0-35.0); MEAN CORPUSCULAR VOLUME 90.9 fL (80.0-100.0); MEAN PLATELET VOLUME 8.7 fL (7.4-11.0); MONOCYTES # (AUTO) 0.8 x10^3/uL (0.3-0.8); MONOCYTES % (AUTO) 4.4 % (0.0-13.0); RED BLOOD COUNT 2.97 X10^6/uL (4.7-6.0); WHITE BLOOD COUNT 17.6 X10^3/uL (3.6-10.0)
[2023-10-19 19:53] LABS: PLATELET MORPHOLOGY COMMENT NORMAL (NORMAL)
[2023-10-19] MEDS ORDERED: HALDOL INJ IVP SCH (21:00)
[2023-10-19] MEDS: NS 500 ML IV 500 ML IV SCH (21:40)
[2023-10-20 01:21] LABS: BASOPHILS # (AUTO) 0.1 X10^3/uL (0.0-0.1); LYMPHOCYTES # (AUTO) 0.7 X10^3/uL (1.3-2.9); MONOCYTES # (AUTO) 1.1 x10^3/uL (0.3-0.8); MONOCYTES % (AUTO) 5.3 % (0.0-13.0); RED CELL DISTRIBUTION WIDTH 14.9 % (11.6-16.5)
[2023-10-20 01:26] LABS: BASOPHILS % (AUTO) 0.3 % (0.2-1.0); HEMATOCRIT 27.5 % (42.0-54.0); LYMPHOCYTES % (AUTO) 3.4 % (21.0-51.0); MEAN CORPUSCULAR HEMOGLOBIN 29.6 pg (27.0-34.0); MEAN CORPUSCULAR HGB CONC 32.6 g/dL (33.0-35.0); MEAN CORPUSCULAR VOLUME 90.6 fL (80.0-100.0); MEAN PLATELET VOLUME 8.6 fL (7.4-11.0); NEUTROPHILS # (AUTO) 19.8 x10^3/uL (2.2-4.8); PLATELET COUNT 334 X10^3/uL (150.0-450.0); RED BLOOD COUNT 3.03 X10^6/uL (4.7-6.0); WHITE BLOOD COUNT 21.8 X10^3/uL (3.6-10.0)
[2023-10-20 01:40] LABS: PLATELET MORPHOLOGY COMMENT NORMAL (NORMAL)
[2023-10-20] MEDS: NS 100 ML IV 100 ML ONE (05:58)
--- NOTE | 2023-10-20 08:15 | PCM.PROG ---
Progress Note Progress Note for Day of Date of Exam: 10/19/23 Subjective Subjective: The patient is sitting up on the edge of the bed this morning. He had no acute problems overnight. He is to be going to the operating room today as his vascular surgeon, Dr. Hinkle will try to increase the patient's blood flow to his right lower extremity. The patient continues to have elevated white blood cell count however he has had a urinalysis that is negative for infection and a chest x-ray that is negative for infection. He has had previous blood cultures earlier in hospital stay that have been negative. It is noted he had some low-grade fever this morning. Blood cultures were not drawn as the fever was not high enough did not meet protocol standards for blood cultures. The patient is currently receiving IV Maxipime. Past Medical Family Social History Allergies: Allergies No Known Allergies Allergy (Verified 10/13/23 13:28) Review of Systems ROS: Changes notes (describe) (Chills/rigors) Vital Signs and I&O's Vital Signs: Vital Signs Temperature 98.7 F Pulse Rate 73 Pulse Rate 73 Pulse Rate 74 Pulse Rate 74 Pulse Rate 82 Pulse Rate 82 Pulse Rate 99 Pulse Rate 95 Pulse Rate 99 Pulse Rate 108 Pulse Rate 118 Pulse Rate 118 Pulse Rate 123 Pulse Rate 123 Respiratory Rate 33 Respiratory Rate 20 Respiratory Rate 22 Respiratory Rate 22 Respiratory Rate 28 Respiratory Rate 28 Respiratory Rate 9 Respiratory Rate 33 Respiratory Rate 33 Respiratory Rate 30 Respiratory Rate 30 Blood Pressure 158/100 Blood Pressure 157/90 Blood Pressure 157/90 Blood Pressure 152/76 Blood Pressure 152/76 Blood Pressure 147/79 Blood Pressure 147/79 Blood Pressure 155/93 Blood Pressure 155/93 Blood Pressure 164/94 Blood Pressure 180/97 Blood Pressure 180/97 Blood Pressure 156/94 Blood Pressure 156/94 O2 Sat by Pulse Oximetry 95 O2 Sat by Pulse Oximetry 100 O2 Sat by Pulse Oximetry 100 O2 Sat by Pulse Oximetry 97 O2 Sat by Pulse Oximetry 97 O2 Sat by Pulse Oximetry 94 O2 Sat by Pulse Oximetry 94 O2 Sat by Pulse Oximetry 92 O2 Sat by Pulse Oximetry 93 O2 Sat by Pulse Oximetry 95 O2 Sat by Pulse Oximetry 97 O2 Sat by Pulse Oximetry 95 O2 Sat by Pulse Oximetry 95 O2 Sat by Pulse Oximetry 96 O2 Sat by Pulse Oximetry 96 Intake and Output: Intake & Output 10/17/23 10/18/23 10/19/23 10/20/23 11:59 11:59 11:59 11:59 Intake Total 2299 / 2299 2206 / 2206 1887 / 1887 4550 / 4550 Output Total 2650 / 2650 3725 / 3725 2550 / 2550 6160 / 6160 Balance -351 / -351 -1519 / -1519 -663 / -663 -1610 / -1610 Physical Exam Oriented: Normal, Time, Person and Place Eyes: Normal Ear: Normal Nose: Normal Throat: Normal Respiratory: Normal Cardiovascular: Normal and Other (left femoral pulse is palpable , left foot warm with biphasic flow at ankle of arteries , right foot cool with no palapble femoral pulse and no doppler signal at the right ankle . ) : Normal Auscultation: Bowel Sounds: Normal Tenderness: Normal Skin: Normal Musculoskeletal: Normal Psychiatric: Anxiety and Agitation Mood Description: Anxious Affect: Anxious Speech Pattern: Clear and Appropriate Laboratory and Diagnostics 10/20/23 01:00 10/19/23 04:49 Labs: 10/15/23 08:45 Foot - Right Wound Gram Stain - Final 10/15/23 08:45 Foot - Right Wound Culture - Preliminary 10/13/23 20:48 Blood Blood Culture - Final 10/13/23 20:37 Blood Blood Culture - Final 10/16/23 16:30 Urine,Catheterized Urine Culture - Final 10/15/23 03:45 Urine,Clean Catch Urine Culture - Final Laboratory WBC 21.8 X10^3/uL (3.6-10.0) H 10/20/23 01:00 RBC 3.03 X10^6/uL (4.7-6.0) L 10/20/23 01:00 Hgb 9.0 g/dL (13.5-18.0) L 10/20/23 01:00 Hct 27.5 % (42.0-54.0) L 10/20/23 01:00 MCV 90.6 fL (80.0-100.0) 10/20/23 01:00 MCH 29.6 pg (27.0-34.0) 10/20/23 01:00 MCHC 32.6 g/dL (33.0-35.0) L 10/20/23 01:00 RDW 14.9 % (11.6-16.5) 10/20/23 01:00 Plt Count 334 X10^3/uL (150.0-450.0) 10/20/23 01:00 Plt Count Comment Adequate (ADEQUATE) 10/20/23 01:00 MPV 8.6 fL (7.4-11.0) 10/20/23 01:00 Neut % (Auto) 91.0 % (42.0-75.0) H 10/20/23 01:00 Lymph % (Auto) 3.4 % (21.0-51.0) L 10/20/23 01:00 Dewey % (Auto) 5.3 % (0.0-13.0) 10/20/23 01:00 Eos % (Auto) 0.0 % (0.9-2.9) L 10/20/23 01:00 Baso % (Auto) 0.3 % (0.2-1.0) 10/20/23 01:00 Neut # (Auto) 19.8 x10^3/uL (2.2-4.8) H 10/20/23 01:00 Lymph # (Auto) 0.7 X10^3/uL (1.3-2.9) L 10/20/23 01:00 [place]wey # (Auto) 1.1 x10^3/uL (0.3-0.8) H 10/20/23 01:00 Eos # (Auto) 0.0 x10^3/uL (0.0-0.2) 10/20/23 01:00 Baso # (Auto) 0.1 X10^3/uL (0.0-0.1) 10/20/23 01:00 Absolute Nucleated RBC 0.0 /100WBC 10/20/23 01:00 Total Counted 100 10/20/23 01:00 Neutrophils % (Manual) 87 % (39-76) H 10/20/23 01:00 Band Neutrophils % 6 % (0-10) 10/15/23 13:35 Lymphocytes % (Manual) 6 % (13-43) L 10/20/23 01:00 Monocytes % (Manual) 7 % (4-9) 10/20/23 01:00 Eosinophils % (Manual) 1 % (0-6) 10/19/23 19:10 Basophils % (Manual) 1 % (0-1) 10/18/23 04:00 Metamyelocytes % Cancelled 10/14/23 04:26 Myelocytes % Cancelled 10/14/23 04:26 Promyelocytes % Cancelled 10/14/23 04:26 Nucleated RBCs 1 10/19/23 04:49 Atypical Lymphocytes Cancelled 10/14/23 04:26 Blast Cells Cancelled 10/14/23 04:26 Smudge Cells Cancelled 10/14/23 04:26 Toxic Granulation Cancelled 10/14/23 04:26 Dohle Bodies Cancelled 10/14/23 04:26 Binu Rods Cancelled 10/14/23 04:26 Plt Clumps, EDTA Cancelled 10/14/23 04:26 Giant Platelets Cancelled 10/14/23 04:26 Plt Morphology Comment Normal (NORMAL) 10/20/23 01:00 RBC Morphology Normal (NORMAL) 10/20/23 01:00 Dimorphic RBCs Cancelled 10/14/23 04:26 Polychromasia Cancelled 10/14/23 04:26 Hypochromasia Cancelled 10/14/23 04:26 Poikilocytosis Cancelled 10/14/23 04:26 Basophilic Stippling Cancelled 10/14/23 04:26 Anisocytosis Cancelled 10/14/23 04:26 Microcytosis Cancelled 10/14/23 04:26 Macrocytosis Cancelled 10/14/23 04:26 Spherocytes Cancelled 10/14/23 04:26 Pappenheimer Bodies Cancelled 10/14/23 04:26 Sickle Cells Cancelled 10/14/23 04:26 Target Cells Present 10/17/23 06:05 Tear Drop Cells Cancelled 10/14/23 04:26 Ovalocytes Cancelled 10/14/23 04:26 Stomatocytes Cancelled 10/14/23 04:26 Helmet Cells Cancelled 10/14/23 04:26 Lujan-[place] Bodies Cancelled 10/14/23 04:26 Reedy Rings Cancelled 10/14/23 04:26 Mona Cells Cancelled 10/14/23 04:26 Crenated Cell Cancelled 10/14/23 04:26 Acanthocytes (Spur) Cancelled 10/14/23 04:26 Rouleaux Cancelled 10/14/23 04:26 Schistocytes Cancelled 10/14/23 04:26 Absolute Retic 0.0773 10^6/uL 10/14/23 09:30 Percent Retic 2.28 % (0.8-2.2) H 10/14/23 09:30 PT 16.7 SECONDS (11.8-14.3) 10/16/23 16:04 INR Target Range - 10/16/23 16:04 INR 1.39 (0.8-1.3) H 10/16/23 16:04 APTT 45.2 SECONDS (22.9-36.5) H 10/20/23 01:00 PTT Comment - 10/20/23 01:00 Fibrinogen 689 mg/dL (239-489) H 10/20/23 01:00 Factor XII Activity 90 10/13/23 16:14 Sample Site Rrad 10/16/23 16:03 ABG pH 7.570 (7.35-7.45) H* 10/16/23 16:03 ABG pCO2 36.0 mmHg (35.0-45.0) 10/16/23 16:03 ABG pO2 61.0 mmHg (80.0-100.0) L 10/16/23 16:03 ABG HCO3 33.0 mmol/L (22-26) H* 10/16/23 16:03 ABG O2 Saturation 94.0 % (90-100) 10/16/23 16:03 ABG Base Excess 10.3 mmol/L (-2.0-2.0) H 10/16/23 16:03 Ronnie Test Pos 10/16/23 16:03 A-a Gradient 122.0 mmHg 10/16/23 16:03 FiO2 32.0 10/16/23 16:03 Blood Gas Comments Pt holly well elj cdn 10/16/23 16:03 Sodium 132 mmol/L (136-145) L 10/19/23 04:49 Corrected Sodium 133 mmol/L (136-145) L 10/19/23 04:49 Potassium 4.1 mmol/L (3.5-5.1) 10/19/23 04:49 Chloride 95 mmol/L (98-107) L 10/19/23 04:49 Carbon Dioxide 33.6 mmol/L (21-32) H 10/19/23 04:49 BUN 13 mg/dL (7-18) 10/19/23 04:49 Creatinine 1.20 mg/dL (0.70-1.30) 10/19/23 04:49 Est GFR (MDRD) Af Amer > 60 (>60) 10/19/23 04:49 Est GFR (MDRD) Non-Af > 60 (>60) 10/19/23 04:49 Glucose 132 mg/dL (65-99) H 10/19/23 04:49 POC Glucose (mg/dL) 159 mg/dL (65-99) H 10/20/23 05:53 Hemoglobin A1c 7.5 % 10/13/23 13:30 Calcium 8.1 mg/dL (8.5-10.1) L 10/19/23 04:49 Corrected Calcium 10.1 mg/dL (8.5-10.1) 10/19/23 04:49 Magnesium 2.0 mg/dL (2.0-2.9) 10/16/23 01:35 Iron 14 ug/dL (50-175) L 10/14/23 09:30 TIBC 175 ug/dL (250-450) L 10/14/23 09:30 Transferrin 140 mg/dL (202-364) L 10/14/23 09:30 Ferritin 853 ng/mL (26-388) H 10/14/23 09:30 Total Bilirubin 0.80 mg/dL (0.2-1.0) 10/19/23 04:49 AST 60 Units/L (15-37) H 10/19/23 04:49 ALT 24 Units/L (12-78) 10/19/23 04:49 Alkaline Phosphatase 117 Units/L (46-116) H 10/19/23 04:49 Ammonia < 10 umol/L (11-32) L 10/16/23 16:04 Troponin I High Sens 59.6 ng/L (4.0-60.0) 10/13/23 17:13 B-Natriuretic Peptide 874 pg/mL (0-79) H 10/16/23 01:30 Total Protein 6.5 g/dL (6.4-8.2) 10/19/23 04:49 Albumin 1.5 g/dL (3.4-5.0) L 10/19/23 04:49 Globulin 5.0 g/dL (2.5-4.5) H 10/19/23 04:49 Albumin/Globulin Ratio 0.3 Ratio (1.1-2.1) L 10/19/23 04:49 Vitamin B12 370 pg/mL (193-986) 10/14/23 09:30 Folate 8.6 ng/mL (>8.6) 10/14/23 09:30 Specimen Type Catherized urine 10/16/23 16:30 Urine Color Dark yellow (YELLOW) 10/16/23 16:30 Urine Appearance Clear (CLEAR) 10/16/23 16:30 Urine pH 6.0 (5.0 - 8.0) 10/16/23 16:30 Ur Specific [place] 1.020 (1.000-1.030) 10/16/23 16:30 Urine Protein 3+ (NEGATIVE) 10/16/23 16:30 Urine Glucose (UA) Negative (NEGATIVE) 10/16/23 16:30 Urine Ketones Negative (NEGATIVE) 10/16/23 16:30 Urine Blood 3+ (NEGATIVE) 10/16/23 16:30 Urine Nitrite Negative (NEGATIVE) 10/16/23 16:30 Urine Bilirubin 1+ (NEGATIVE) 10/16/23 16:30 Urine Urobilinogen 2+ (NORMAL) 10/16/23 16:30 Ur Leukocyte Esterase 1+ (NEGATIVE) 10/16/23 16:30 Urine RBC 3-5 /HPF (0-3) A 10/16/23 16:30 Urine WBC 3-5 /HPF (0-5) 10/16/23 16:30 Ur Squamous Epith Cells Rare /HPF (NEGATIVE) 10/16/23 16:30 Ur Transition Epith Cell Rare /HPF (NEGATIVE) 10/13/23 20:08 Amorphous Sediment Trace /HPF (NEGATIVE) 10/16/23 16:30 Urine Bacteria Trace /HPF (NEGATIVE) 10/16/23 16:30 Hyaline Casts Numerous /LPF (NEGATIVE) 10/13/23 20:08 Urine Mucus Few /HPF (NEGATIVE) 10/16/23 16:30 Ur Culture Indicated? Yes/culture set up 10/16/23 16:30 Digoxin 0.35 ng/mL (0.9-2) L 10/19/23 04:49 Urine Opiates Screen Negative (NEG=<300) 10/13/23 20:08 Urine Methadone Screen Negative (NEG=<300) 10/13/23 20:08 Ur Barbiturates Screen Negative (NEG=<200) 10/13/23 20:08 Ur Phencyclidine Scrn Negative (NEG=<25) 10/13/23 20:08 Ur Amphetamines Screen Negative (NEG=<1000) 10/13/23 20:08 U Benzodiazepines Scrn Negative (NEG=<200) 10/13/23 20:08 Urine Cocaine Screen Positive (NEG=<300) 10/13/23 20:08 U Marijuana (THC) Screen Negative (NEG=<50) 10/13/23 20:08 Infect Dis PCR Plus see scanned report 10/15/23 03:45 Plan (1) Ischemic leg: Status: Acute Plan: Dr. Hinkle, vascular surgeon will be taking the patient to the OR today. We will follow-up with him after surgery. (2) Wound of right foot: Status: Acute Narrative Support Text: The wound culture on the right lower extremity showed no evidence of infection. (3) Leukocytosis: Status: Acute (4) Atrial fibrillation: Status: Acute Qualifiers: Atrial fibrillation type: unspecified chronic Qualified Code(s): I48.20 - Chronic atrial fibrillation, unspecified Plan: Continue digoxin 0.25 mg p.o. daily along with Cardizem CD 180 mg 1 p.o. daily. Check digoxin level today. (5) Type 2 diabetes mellitus: Status: Acute Qualifiers: Diabetes mellitus termite exterminator helper insulin use: without shelter use Plan: 1800 Praneeth ADA diet and sliding scale insulin. I will start Levemir 5 units subcutaneous injections twice daily (6) Essential (primary) hypertension: Status: Acute Narrative Support Text: The patient's blood pressure has been increasing we will plan on adjusting his blood pressure medicine. Plan: patient was hypotensive on admission. we will restart his medications when appropriate (7) Anemia: Status: Acute Plan: Monitor daily CBCs. Check anemia panel. (8) Dehydration: Status: Resolved Plan: bolus of fluids (9) Hyperlipidemia: Status: Acute Plan: Continue simvastatin 10 mg at at bedtime. (10) Cocaine abuse: Status: Acute Plan: will need to observe for withdrawal and treat accordingly. (11) Urinary tract infection: Status: Acute Qualifiers: Urinary tract infection type: acute cystitis Hematuria presence: with hematuria Qualified Code(s): N30.01 - Acute cystitis with hematuria Plan: The patient is currently on Maxipime. We will follow up with the urine culture and sensitivity results when available. Check we will change antibiotics if needed
[2023-10-20] MEDS: NS 500 ML IV 500 ML IV SCH (08:44)
[2023-10-20] MEDS: ACTIVASE CATHFLO 12 MG in NS 250 ML IV 228 ML INTRACATH ONE ×3 (08:44)
[2023-10-20] MEDS ORDERED: ZESTRIL TAB 20 MG ONE (09:29)
[2023-10-20] MEDS: COLACE CAP 100 MG PO SCH (09:47)
[2023-10-20] MEDS: ZYVOX 600MG IV 600 MG/300 ML BAG IV SCH (09:53)
[2023-10-20 09:56] LABS: BASOPHILS # (AUTO) 0.1 X10^3/uL (0.0-0.1); BASOPHILS % (AUTO) 0.4 % (0.2-1.0); EOSINOPHILS % (AUTO) 0.1 % (0.9-2.9); HEMATOCRIT 26.9 % (42.0-54.0); HEMOGLOBIN 8.6 g/dL (13.5-18.0); LYMPHOCYTES # (AUTO) 1.2 X10^3/uL (1.3-2.9); LYMPHOCYTES % (AUTO) 5.4 % (21.0-51.0); MEAN CORPUSCULAR HEMOGLOBIN 29.1 pg (27.0-34.0); MEAN CORPUSCULAR HGB CONC 32.1 g/dL (33.0-35.0); MEAN CORPUSCULAR VOLUME 90.8 fL (80.0-100.0); MEAN PLATELET VOLUME 8.4 fL (7.4-11.0); MONOCYTES # (AUTO) 1.6 x10^3/uL (0.3-0.8); MONOCYTES % (AUTO) 7.1 % (0.0-13.0); NEUTROPHILS # (AUTO) 20.2 x10^3/uL (2.2-4.8); PLATELET COUNT 328 X10^3/uL (150.0-450.0); RED BLOOD COUNT 2.96 X10^6/uL (4.7-6.0); RED CELL DISTRIBUTION WIDTH 14.8 % (11.6-16.5); WHITE BLOOD COUNT 23.2 X10^3/uL (3.6-10.0)
[2023-10-20] MEDS: HALDOL INJ IM SCH (09:56)
[2023-10-20 10:10] LABS: BAND NEUTROPHILS % 6 % (0-10); PLATELET MORPHOLOGY COMMENT NORMAL (NORMAL)
[2023-10-20 13:36] LABS: BASOPHILS # (AUTO) 0.1 X10^3/uL (0.0-0.1); BASOPHILS % (AUTO) 0.6 % (0.2-1.0); EOSINOPHILS % (AUTO) 0.2 % (0.9-2.9); HEMATOCRIT 23.8 % (42.0-54.0); HEMOGLOBIN 7.6 g/dL (13.5-18.0); LYMPHOCYTES # (AUTO) 1.4 X10^3/uL (1.3-2.9); MEAN CORPUSCULAR HEMOGLOBIN 28.9 pg (27.0-34.0); MEAN CORPUSCULAR HGB CONC 31.8 g/dL (33.0-35.0); MEAN CORPUSCULAR VOLUME 90.8 fL (80.0-100.0); MEAN PLATELET VOLUME 8.3 fL (7.4-11.0); MONOCYTES # (AUTO) 2.1 x10^3/uL (0.3-0.8); MONOCYTES % (AUTO) 8.7 % (0.0-13.0); NEUTROPHILS # (AUTO) 20.2 x10^3/uL (2.2-4.8); NEUTROPHILS % (AUTO) 84.5 % (42.0-75.0); PLATELET COUNT 276 X10^3/uL (150.0-450.0); RED BLOOD COUNT 2.62 X10^6/uL (4.7-6.0); RED CELL DISTRIBUTION WIDTH 14.8 % (11.6-16.5); WHITE BLOOD COUNT 23.9 X10^3/uL (3.6-10.0)
[2023-10-20 14:08] LABS: BAND NEUTROPHILS % 1 % (0-10); PLATELET MORPHOLOGY COMMENT NORMAL (NORMAL)
[2023-10-20] MEDS: SEROquel TAB 25 mg PO SCH (14:43)
[2023-10-20] MEDS ORDERED: HALDOL INJ IVP PRN (15:05)
[2023-10-20 19:33] LABS: BASOPHILS # (AUTO) 0.1 X10^3/uL (0.0-0.1); BASOPHILS % (AUTO) 0.5 % (0.2-1.0); EOSINOPHILS # (AUTO) 0.1 x10^3/uL (0.0-0.2); EOSINOPHILS % (AUTO) 0.3 % (0.9-2.9); HEMATOCRIT 23.4 % (42.0-54.0); HEMOGLOBIN 7.7 g/dL (13.5-18.0); LYMPHOCYTES # (AUTO) 1.4 X10^3/uL (1.3-2.9); LYMPHOCYTES % (AUTO) 6.9 % (21.0-51.0); MEAN CORPUSCULAR HEMOGLOBIN 29.7 pg (27.0-34.0); MEAN CORPUSCULAR HGB CONC 32.9 g/dL (33.0-35.0); MEAN CORPUSCULAR VOLUME 90.3 fL (80.0-100.0); MEAN PLATELET VOLUME 7.8 fL (7.4-11.0); MONOCYTES # (AUTO) 1.5 x10^3/uL (0.3-0.8); MONOCYTES % (AUTO) 7.7 % (0.0-13.0); NEUTROPHILS # (AUTO) 16.8 x10^3/uL (2.2-4.8); NEUTROPHILS % (AUTO) 84.6 % (42.0-75.0); PLATELET COUNT 280 X10^3/uL (150.0-450.0); RED BLOOD COUNT 2.59 X10^6/uL (4.7-6.0); WHITE BLOOD COUNT 19.9 X10^3/uL (3.6-10.0)
[2023-10-21 01:12] LABS: BASOPHILS # (AUTO) 0.1 X10^3/uL (0.0-0.1); BASOPHILS % (AUTO) 0.4 % (0.2-1.0); EOSINOPHILS # (AUTO) 0.1 x10^3/uL (0.0-0.2); EOSINOPHILS % (AUTO) 0.3 % (0.9-2.9); HEMATOCRIT 24.5 % (42.0-54.0); HEMOGLOBIN 7.9 g/dL (13.5-18.0); LYMPHOCYTES # (AUTO) 1.4 X10^3/uL (1.3-2.9); LYMPHOCYTES % (AUTO) 7.8 % (21.0-51.0); MEAN CORPUSCULAR HEMOGLOBIN 29.1 pg (27.0-34.0); MEAN CORPUSCULAR HGB CONC 32.2 g/dL (33.0-35.0); MEAN CORPUSCULAR VOLUME 90.3 fL (80.0-100.0); MONOCYTES # (AUTO) 1.3 x10^3/uL (0.3-0.8); MONOCYTES % (AUTO) 7.5 % (0.0-13.0); NEUTROPHILS # (AUTO) 14.9 x10^3/uL (2.2-4.8); PLATELET COUNT 267 X10^3/uL (150.0-450.0); RED BLOOD COUNT 2.71 X10^6/uL (4.7-6.0); WHITE BLOOD COUNT 17.7 X10^3/uL (3.6-10.0)
[2023-10-21] MEDS: OFIRMEV IV 1000 MG VIAL 1,000 MG/100 ML VIAL IV PRN (04:20)
[2023-10-21] MEDS ORDERED: HIBICLENS WASH EXT ONE (04:41)
[2023-10-21] MEDS: NS 1,000 ML IV 1,000 ML ONE (06:59)
[2023-10-21 07:02] LABS: BASOPHILS # (AUTO) 0.1 X10^3/uL (0.0-0.1); BASOPHILS % (AUTO) 0.4 % (0.2-1.0); EOSINOPHILS # (AUTO) 0.1 x10^3/uL (0.0-0.2); EOSINOPHILS % (AUTO) 0.3 % (0.9-2.9); HEMATOCRIT 22.6 % (42.0-54.0); HEMOGLOBIN 7.4 g/dL (13.5-18.0); LYMPHOCYTES # (AUTO) 1.8 X10^3/uL (1.3-2.9); LYMPHOCYTES % (AUTO) 10.6 % (21.0-51.0); MEAN CORPUSCULAR HEMOGLOBIN 29.6 pg (27.0-34.0); MEAN CORPUSCULAR HGB CONC 32.5 g/dL (33.0-35.0); MEAN PLATELET VOLUME 8.4 fL (7.4-11.0); MONOCYTES # (AUTO) 1.6 x10^3/uL (0.3-0.8); MONOCYTES % (AUTO) 9.1 % (0.0-13.0); NEUTROPHILS # (AUTO) 13.5 x10^3/uL (2.2-4.8); NEUTROPHILS % (AUTO) 79.6 % (42.0-75.0); PLATELET COUNT 269 X10^3/uL (150.0-450.0); RED BLOOD COUNT 2.49 X10^6/uL (4.7-6.0); RED CELL DISTRIBUTION WIDTH 15.1 % (11.6-16.5)
[2023-10-21] MEDS: MARCAINE 0.5% ONE (07:22)
[2023-10-21] MEDS: ANCEF VIAL 1 GRAM ONE (07:36)
[2023-10-21] MEDS: NS 100 ML IV 100 ML ONE (07:36)
[2023-10-21] MEDS: VERSED ONE (07:41)
[2023-10-21] MEDS: FENTANYL VIAL INJ 100 mcg ONE (07:41)
[2023-10-21] MEDS: DIPRIVAN VIAL 20 ML ONE (07:45)
[2023-10-21] MEDS: ROBINUL ONE (07:53)
[2023-10-21] MEDS: HEPARIN SODIUM IN D5W 75,000 UNITS/1,500 ML BAG ONE (08:06)
[2023-10-21] MEDS: VISIPAQUE 100 ML ONE (08:06)
--- NOTE | 2023-10-21 08:11 | PCM.PROG ---
Progress Note Progress Note for Day of Date of Exam: 10/20/23 Subjective Subjective: The patient is resting this morning. He has finished his Activase yesterday afternoon. He has been getting irritable especially at night. I have started him on Seroquel 50 mg 3 times daily. This does seem to be improving he is agitation. The patient is foot remains fairly cool and his white blood cell count is still elevated at 17,700. He is currently receiving IV Maxipime and I also have started him on IV linezolid for empiric coverage of MRSA. We will repeat CBC in the morning. Patient is atrial fibrillation at is currently rate controlled. Past Medical Family Social History Allergies: Allergies No Known Allergies Allergy (Verified 10/13/23 13:28) Review of Systems ROS: Changes notes (describe) (Chills/rigors) Vital Signs and I&O's Vital Signs: Vital Signs Temperature 99.4 F Temperature 101.5 F Pulse Rate 80 Pulse Rate 68 Pulse Rate 69 Pulse Rate 74 Pulse Rate 73 Pulse Rate 77 Pulse Rate 86 Respiratory Rate 22 Respiratory Rate 22 Respiratory Rate 20 Respiratory Rate 16 Respiratory Rate 22 Respiratory Rate 18 Respiratory Rate 18 Blood Pressure 101/61 Blood Pressure 102/60 Blood Pressure 101/62 Blood Pressure 101/64 Blood Pressure 96/61 Blood Pressure 104/59 Blood Pressure 94/55 O2 Sat by Pulse Oximetry 98 O2 Sat by Pulse Oximetry 100 O2 Sat by Pulse Oximetry 100 O2 Sat by Pulse Oximetry 100 O2 Sat by Pulse Oximetry 97 O2 Sat by Pulse Oximetry 100 O2 Sat by Pulse Oximetry 98 Intake and Output: Intake & Output 10/18/23 10/19/23 10/20/23 10/21/23 11:59 11:59 11:59 11:59 Intake Total 2206 / 2206 1887 / 1887 4550 / 4550 2792 / 2792 Output Total 3725 / 3725 2550 / 2550 7650 / 7750 3154 / 3154 Balance -1519 / -1519 -663 / -663 -3100 / -3200 -362 / -362 Physical Exam Oriented: Normal, Time, Person and Place Eyes: Normal Ear: Normal Nose: Normal Throat: Normal Respiratory: Normal Cardiovascular: Normal and Other (left femoral pulse is palpable , left foot warm with biphasic flow at ankle of arteries , right foot cool with no palapble femoral pulse and no doppler signal at the right ankle . ) : Normal Auscultation: Bowel Sounds: Normal Tenderness: Normal Skin: Normal Musculoskeletal: Normal Psychiatric: Anxiety and Agitation Mood Description: Anxious Affect: Anxious Speech Pattern: Clear and Appropriate Laboratory and Diagnostics 10/21/23 06:43 10/19/23 04:49 Labs: 10/15/23 08:45 Foot - Right Wound Gram Stain - Final 10/15/23 08:45 Foot - Right Wound Culture - Preliminary 10/13/23 20:48 Blood Blood Culture - Final 10/13/23 20:37 Blood Blood Culture - Final 10/16/23 16:30 Urine,Catheterized Urine Culture - Final 10/15/23 03:45 Urine,Clean Catch Urine Culture - Final Laboratory WBC 17.0 X10^3/uL (3.6-10.0) H 10/21/23 06:43 RBC 2.49 X10^6/uL (4.7-6.0) L 10/21/23 06:43 Hgb 7.4 g/dL (13.5-18.0) L 10/21/23 06:43 Hct 22.6 % (42.0-54.0) L 10/21/23 06:43 MCV 91.0 fL (80.0-100.0) 10/21/23 06:43 MCH 29.6 pg (27.0-34.0) 10/21/23 06:43 MCHC 32.5 g/dL (33.0-35.0) L 10/21/23 06:43 RDW 15.1 % (11.6-16.5) 10/21/23 06:43 Plt Count 269 X10^3/uL (150.0-450.0) 10/21/23 06:43 Plt Count Comment Adequate (ADEQUATE) 10/20/23 13:25 MPV 8.4 fL (7.4-11.0) 10/21/23 06:43 Neut % (Auto) 79.6 % (42.0-75.0) H 10/21/23 06:43 Lymph % (Auto) 10.6 % (21.0-51.0) L 10/21/23 06:43 [place] % (Auto) 9.1 % (0.0-13.0) 10/21/23 06:43 Eos % (Auto) 0.3 % (0.9-2.9) L 10/21/23 06:43 Baso % (Auto) 0.4 % (0.2-1.0) 10/21/23 06:43 Neut # (Auto) 13.5 x10^3/uL (2.2-4.8) H 10/21/23 06:43 Lymph # (Auto) 1.8 X10^3/uL (1.3-2.9) 10/21/23 06:43 [place] # (Auto) 1.6 x10^3/uL (0.3-0.8) H 10/21/23 06:43 Eos # (Auto) 0.1 x10^3/uL (0.0-0.2) 10/21/23 06:43 Baso # (Auto) 0.1 X10^3/uL (0.0-0.1) 10/21/23 06:43 Absolute Nucleated RBC 0.6 /100WBC 10/21/23 06:43 Total Counted 100 10/20/23 13:25 Neutrophils % (Manual) 85 % (39-76) H 10/20/23 13:25 Band Neutrophils % 1 % (0-10) 10/20/23 13:25 Lymphocytes % (Manual) 7 % (13-43) L 10/20/23 13:25 Monocytes % (Manual) 7 % (4-9) 10/20/23 13:25 Eosinophils % (Manual) 1 % (0-6) 10/19/23 19:10 Basophils % (Manual) 1 % (0-1) 10/18/23 04:00 Metamyelocytes % Cancelled 10/14/23 04:26 Myelocytes % Cancelled 10/14/23 04:26 Promyelocytes % Cancelled 10/14/23 04:26 Nucleated RBCs 1 10/19/23 04:49 Atypical Lymphocytes Cancelled 10/14/23 04:26 Blast Cells Cancelled 10/14/23 04:26 Smudge Cells Cancelled 10/14/23 04:26 Toxic Granulation Cancelled 10/14/23 04:26 Dohle Bodies Cancelled 10/14/23 04:26 Binu Rods Cancelled 10/14/23 04:26 Plt Clumps, EDTA Cancelled 10/14/23 04:26 Giant Platelets Cancelled 10/14/23 04:26 Plt Morphology Comment Normal (NORMAL) 10/20/23 13:25 RBC Morphology Normal (NORMAL) 10/20/23 13:25 Dimorphic RBCs Cancelled 10/14/23 04:26 Polychromasia Cancelled 10/14/23 04:26 Hypochromasia Cancelled 10/14/23 04:26 Poikilocytosis Cancelled 10/14/23 04:26 Basophilic Stippling Cancelled 10/14/23 04:26 Anisocytosis Cancelled 10/14/23 04:26 Microcytosis Cancelled 10/14/23 04:26 Macrocytosis Cancelled 10/14/23 04:26 Spherocytes Cancelled 10/14/23 04:26 Pappenheimer Bodies Cancelled 10/14/23 04:26 Sickle Cells Cancelled 10/14/23 04:26 Target Cells Present 10/17/23 06:05 Tear Drop Cells Cancelled 10/14/23 04:26 Ovalocytes Cancelled 10/14/23 04:26 Stomatocytes Cancelled 10/14/23 04:26 Helmet Cells Cancelled 10/14/23 04:26 [place] Bodies Cancelled 10/14/23 04:26 [place] Rings Cancelled 10/14/23 04:26 [place] Cells Cancelled 10/14/23 04:26 Crenated Cell Cancelled 10/14/23 04:26 Acanthocytes (Spur) Cancelled 10/14/23 04:26 Rouleaux Cancelled 10/14/23 04:26 Schistocytes Cancelled 10/14/23 04:26 Absolute Retic 0.0773 10^6/uL 10/14/23 09:30 Percent Retic 2.28 % (0.8-2.2) H 10/14/23 09:30 PT 16.7 SECONDS (11.8-14.3) 10/16/23 16:04 INR Target Range - 10/16/23 16:04 INR 1.39 (0.8-1.3) H 10/16/23 16:04 APTT 43.6 SECONDS (22.9-36.5) H 10/21/23 06:43 PTT Comment - 10/21/23 06:43 Fibrinogen 562 mg/dL (239-489) H 10/21/23 06:43 Factor XII Activity 90 06/12/24 16:14 Sample Site Rrad 10/16/23 16:03 ABG pH 7.570 (7.35-7.45) H* 10/16/23 16:03 ABG pCO2 36.0 mmHg (35.0-45.0) 10/16/23 16:03 ABG pO2 61.0 mmHg (80.0-100.0) L 10/16/23 16:03 ABG HCO3 33.0 mmol/L (22-26) H* 10/16/23 16:03 ABG O2 Saturation 94.0 % (90-100) 10/16/23 16:03 ABG Base Excess 10.3 mmol/L (-2.0-2.0) H 10/16/23 16:03 Ronnie Test Pos 10/16/23 16:03 A-a Gradient 122.0 mmHg 10/16/23 16:03 FiO2 32.0 10/16/23 16:03 Blood Gas Comments Pt holly well elj cdn 10/16/23 16:03 Sodium 132 mmol/L (136-145) L 10/19/23 04:49 Corrected Sodium 133 mmol/L (136-145) L 10/19/23 04:49 Potassium 4.1 mmol/L (3.5-5.1) 10/19/23 04:49 Chloride 95 mmol/L (98-107) L 10/19/23 04:49 Carbon Dioxide 33.6 mmol/L (21-32) H 10/19/23 04:49 BUN 13 mg/dL (7-18) 10/19/23 04:49 Creatinine 1.20 mg/dL (0.70-1.30) 10/19/23 04:49 Est GFR (MDRD) Af Amer > 60 (>60) 10/19/23 04:49 Est GFR (MDRD) Non-Af > 60 (>60) 10/19/23 04:49 Glucose 132 mg/dL (65-99) H 10/19/23 04:49 POC Glucose (mg/dL) 140 mg/dL (65-99) H 10/21/23 06:02 Hemoglobin A1c 7.5 % 10/13/23 13:30 Calcium 8.1 mg/dL (8.5-10.1) L 10/19/23 04:49 Corrected Calcium 10.1 mg/dL (8.5-10.1) 10/19/23 04:49 Magnesium 2.0 mg/dL (2.0-2.9) 10/16/23 01:35 Iron 14 ug/dL (50-175) L 10/14/23 09:30 TIBC 175 ug/dL (250-450) L 10/14/23 09:30 Transferrin 140 mg/dL (202-364) L 10/14/23 09:30 Ferritin 853 ng/mL (26-388) H 10/14/23 09:30 Total Bilirubin 0.80 mg/dL (0.2-1.0) 10/19/23 04:49 AST 60 Units/L (15-37) H 10/19/23 04:49 ALT 24 Units/L (12-78) 10/19/23 04:49 Alkaline Phosphatase 117 Units/L (46-116) H 10/19/23 04:49 Ammonia < 10 umol/L (11-32) L 10/16/23 16:04 Troponin I High Sens 59.6 ng/L (4.0-60.0) 10/13/23 17:13 B-Natriuretic Peptide 874 pg/mL (0-79) H 10/16/23 01:30 Total Protein 6.5 g/dL (6.4-8.2) 10/19/23 04:49 Albumin 1.5 g/dL (3.4-5.0) L 10/19/23 04:49 Globulin 5.0 g/dL (2.5-4.5) H 10/19/23 04:49 Albumin/Globulin Ratio 0.3 Ratio (1.1-2.1) L 10/19/23 04:49 Vitamin B12 370 pg/mL (193-986) 10/14/23 09:30 Folate 8.6 ng/mL (>8.6) 10/14/23 09:30 Specimen Type Catherized urine 10/16/23 16:30 Urine Color Dark yellow (YELLOW) 10/16/23 16:30 Urine Appearance Clear (CLEAR) 10/16/23 16:30 Urine pH 6.0 (5.0 - 8.0) 10/16/23 16:30 Ur Specific [place] 1.020 (1.000-1.030) 10/16/23 16:30 Urine Protein 3+ (NEGATIVE) 10/16/23 16:30 Urine Glucose (UA) Negative (NEGATIVE) 10/16/23 16:30 Urine Ketones Negative (NEGATIVE) 10/16/23 16:30 Urine Blood 3+ (NEGATIVE) 10/16/23 16:30 Urine Nitrite Negative (NEGATIVE) 10/16/23 16:30 Urine Bilirubin 1+ (NEGATIVE) 10/16/23 16:30 Urine Urobilinogen 2+ (NORMAL) 10/16/23 16:30 Ur Leukocyte Esterase 1+ (NEGATIVE) 10/16/23 16:30 Urine RBC 3-5 /HPF (0-3) A 10/16/23 16:30 Urine WBC 3-5 /HPF (0-5) 10/16/23 16:30 Ur Squamous Epith Cells Rare /HPF (NEGATIVE) 10/16/23 16:30 Ur Transition Epith Cell Rare /HPF (NEGATIVE) 10/13/23 20:08 Amorphous Sediment Trace /HPF (NEGATIVE) 10/16/23 16:30 Urine Bacteria Trace /HPF (NEGATIVE) 10/16/23 16:30 Hyaline Casts Numerous /LPF (NEGATIVE) 10/13/23 20:08 Urine Mucus Few /HPF (NEGATIVE) 10/16/23 16:30 Ur Culture Indicated? Yes/culture set up 10/16/23 16:30 Digoxin 0.56 ng/mL (0.9-2) L 10/20/23 09:38 Urine Opiates Screen Negative (NEG=<300) 10/13/23 20:08 Urine Methadone Screen Negative (NEG=<300) 10/13/23 20:08 Ur Barbiturates Screen Negative (NEG=<200) 10/13/23 20:08 Ur Phencyclidine Scrn Negative (NEG=<25) 10/13/23 20:08 Ur Amphetamines Screen Negative (NEG=<1000) 10/13/23 20:08 U Benzodiazepines Scrn Negative (NEG=<200) 10/13/23 20:08 Urine Cocaine Screen Positive (NEG=<300) 10/13/23 20:08 U Marijuana (THC) Screen Negative (NEG=<50) 10/13/23 20:08 Infect Dis PCR Plus see scanned report 10/15/23 03:45 Plan (1) Ischemic leg: Status: Acute Plan: Dr. Hinkle, vascular surgeon will be taking the patient to the OR today. We will follow-up with him after surgery. (2) Wound of right foot: Status: Acute Plan: Check wound culture and sensitivity. Continue IV Maxipime at this time. (3) Leukocytosis: Status: Acute Plan: IV antibiotics , but most likely elevation of WBC due to ischemic right foot. Continue IV Maxipime and Zyvox. (4) Atrial fibrillation: Status: Acute Qualifiers: Atrial fibrillation type: unspecified chronic Qualified Code(s): I48.20 - Chronic atrial fibrillation, unspecified Plan: Continue digoxin 0.25 mg p.o. daily along with Cardizem CD 180 mg 1 p.o. daily. Check digoxin level today. (5) Type 2 diabetes mellitus: Status: Acute Qualifiers: Diabetes mellitus retirement insulin use: without criminal justice department chair use Plan: 1800 Praneeth ADA diet and sliding scale insulin. I will start Levemir 5 units subcutaneous injections twice daily (6) Essential (primary) hypertension: Status: Acute Plan: patient was hypotensive on admission. we will restart his medications when appropriate (7) Anemia: Status: Acute Plan: Monitor daily CBCs. Check anemia panel. (8) Dehydration: Status: Resolved Plan: bolus of fluids (9) Hyperlipidemia: Status: Acute Plan: Continue simvastatin 10 mg at at bedtime. (10) Cocaine abuse: Status: Acute Plan: will need to observe for withdrawal and treat accordingly. (11) Urinary tract infection: Status: Acute Qualifiers: Urinary tract infection type: acute cystitis Hematuria presence: with hematuria Qualified Code(s): N30.01 - Acute cystitis with hematuria Plan: The patient is currently on Maxipime. We will follow up with the urine culture and sensitivity results when available. Check we will change antibiotics if needed
[2023-10-21] MEDS: HEPARIN SODIUM IN D5W 25,000 UNITS/500 ML BAG ONE (08:16)
[2023-10-21] MEDS: HEPARIN SODIUM INJ 5000 UNITS ONE (08:18)
--- NOTE | 2023-10-21 09:08 | OR.IMMED ---
IMMEDIATE POST-OP NOTE Immediate Post-Op Note Date of surgery/procedure: 10/21/23 Pre-Op Diagnosis: critical ischemia right leg, occluded right iliac and SFA stents Post-Op Diagnosis: same Procedure: arteriogram right leg, Angiojet thrombectomy right iliac artery, stenting right external and common iliac artery stenosis. Description of Procedure: dictated Surgeon/Special Warfare Boat Operator: Arin Findings: after thrombolysis the right iliac artery and right SFA stents open with runoff via AT and PT arteries now patent. Estimated Blood Loss: < 25 cc Complications: none Progress Notes: Return to CCU , Will probably need amputation right 5th toe.
[2023-10-21 13:32] LABS: BASOPHILS # (AUTO) 0.1 X10^3/uL (0.0-0.1); BASOPHILS % (AUTO) 0.4 % (0.2-1.0); EOSINOPHILS % (AUTO) 0.2 % (0.9-2.9); HEMATOCRIT 21.5 % (42.0-54.0); HEMOGLOBIN 7.2 g/dL (13.5-18.0); LYMPHOCYTES # (AUTO) 1.7 X10^3/uL (1.3-2.9); LYMPHOCYTES % (AUTO) 9.1 % (21.0-51.0); MEAN CORPUSCULAR HEMOGLOBIN 30.5 pg (27.0-34.0); MEAN CORPUSCULAR HGB CONC 33.4 g/dL (33.0-35.0); MEAN CORPUSCULAR VOLUME 91.4 fL (80.0-100.0); MEAN PLATELET VOLUME 8.3 fL (7.4-11.0); MONOCYTES # (AUTO) 1.6 x10^3/uL (0.3-0.8); MONOCYTES % (AUTO) 8.7 % (0.0-13.0); NEUTROPHILS % (AUTO) 81.6 % (42.0-75.0); PLATELET COUNT 241 X10^3/uL (150.0-450.0); RED BLOOD COUNT 2.36 X10^6/uL (4.7-6.0); RED CELL DISTRIBUTION WIDTH 15.2 % (11.6-16.5); WHITE BLOOD COUNT 18.4 X10^3/uL (3.6-10.0)
--- NOTE | 2023-10-21 18:30 | NOTE.SOAP ---
Soap Note Note for Day of Date of Exam: 10/20/23 Subjective Data Subjective Data: Patient had EKOS catheter for thrombolysis placed from the left brachial artery with some difficulty yesterday. He completed his first day of thrombolysis with TPA yesterday and started on second day of thrombolysis today's date. Right foot is warmed down to the ankle. Toes remain cool with dark discoloration over the plantar aspect of the right fifth toe and the right fifth toe itself. Agitation being controlled with multiple of IV medications. Dr Rachel added Seroquel and antibiotics. White blood cell count elevated but no obvious sign of infection at this time. Antibiotics are empiric. Objective Data Temperature: 99.4 F Pulse Rate: 70 Respiratory Rate: 30 Blood Pressure: 109/60 O2 Sat by Pulse Oximetry: 96 Objective Data: right foot as above . Still requires sedation and restraints as necessary for cocaine withdrawal but overall withdrawal symptoms are lessening. Assessment Assessment: Ischemic right foot undergoing catheter directed thrombolysis and treatment for drug withdrawal Plan Plan: Return to OR in AM 10/21/2023 for repeat arterigram after thrmobolysis and appropriate arterial intervention.
--- NOTE | 2023-10-21 19:06 | DR.OPNOTE ---
OP NOTE Pre-Op Diagnosis: critical ischemia RLE , thrombosis R ext iliac artery & R SFA stents Post-Op Diagnosis: same Procedure Date Date Of Procedure: 10/19/23 Procedure: PROCEDURE : DIAGNOSTIC AORTOGRAM, diagnostic arteriogram right leg, placement of peripheral based EKOS thrombotic catheter for 24-Hour catheter- based thrombolysis NARRATIVE: The patient was taken to the operative suite and placed in the supine position and both legs and the entire left arm prepped and draped in sterile fashion. The patient was given intravenous sedation supervised by myself. Timeout for the procedure obtained. Ultrasound used to identify the left brachi al artery just above the antecubital crease and the skin overlying it infiltrated with 0.5% Marcaine . Ultrasound used to guide puncture of the left brachial artery and a 0.012 inch guide wire placed. Incision made over the guide wire at the skin edge with a number 11 knife blade and a micro sheath placed over the guide wire into the brachial artery. Arteriogram of the brachial artery showed this to be normal as was the left subclavian artery. We tried to get the wire to go down the descending aorta from the arm but were successful therefore ultrasound was used to guide puncture of the left femoral artery after infiltrating the skin with 0.5% Marcaine . After puncture a 0.012 inch guide wire placed, incision made over the guide wire and a micro sheath placed over the guide wire. This guide wire exchange for a 0.035 inch Ad[employer] [place] wire and the micro sheath exchanged for a 6 [place] vascular sheath. Through the left femoral artery vascular sheath we placed a snare and took it up to the arch of the aorta and snared the wire coming from the brachial artery and brought it down the descending aorta. Over the wire from the left brachial artery we placed a long Cat[place] 7 [place] sheath. Arteriogram of the aorta showed the aorta to be patent as was the left iliac artery. The right common iliac artery was patent but the right external iliac artery occluded at it's takeoff. This occlusion extended through the 2 stents in the right superficial femoral artery with reconstitution of the superficial femoral artery distal to the stents with poor runoff of the right leg. Over the wire we placed the canula for the peripheral based EKOS thrombolytic catheter and removed the wire and placed the inner core of the EKOS system. At the beginning of the case the patient had been given 5,000 units of IV heparin . Patient was bolused with 3 milligrams of intravenous TPA through the EKOS catheter . The catheter was then connected to the pump and started at 1 milligram of TPA per hour which will continue for 24 hours. Coolant was started through the second port at 30 cc's per hour with normal saline. The patient will receive therapeutic Lovenox as well. Dressing applied to the sheath and the left groin and the left arm. Patient taken back to the ICU in good condition . Patient will be taken back to the OR to assess the results of the thrombolysis with appropriate intervention on October 20 . Type of Anesthesia: Local (0.5% Marcaine ) Anesthesia Comment: plus MAC Findings: Thrombosis and occlusion of the right external iliac artery stent and right superficial femoral artery stents with reconstitution of flow of the right superficial femoral artery distal to the stents with poor runoff to the right foot Type of Fluids Used:: Lactated Ringers Total Amount of Fluid Infused:: 800 cc Urine output: 200cc EBL: 200 cc Hardware: EKOS tjhrombolytic catheter Complications:: none Needle/Sponge Count:: correct Disposition/Condition: Pt. tolerated procedure without difficulty. Extubated in the OR and taken to PACU in stable condition.
[2023-10-21 19:22] LABS: BASOPHILS # (AUTO) 0.1 X10^3/uL (0.0-0.1); EOSINOPHILS # (AUTO) 0.1 x10^3/uL (0.0-0.2); LYMPHOCYTES # (AUTO) 1.3 X10^3/uL (1.3-2.9); MONOCYTES # (AUTO) 1.3 x10^3/uL (0.3-0.8)
[2023-10-21 19:26] LABS: BASOPHILS % (AUTO) 0.5 % (0.2-1.0); EOSINOPHILS % (AUTO) 0.4 % (0.9-2.9); HEMATOCRIT 21.8 % (42.0-54.0); LYMPHOCYTES % (AUTO) 7.8 % (21.0-51.0); MEAN CORPUSCULAR HGB CONC 31.7 g/dL (33.0-35.0); MEAN CORPUSCULAR VOLUME 91.4 fL (80.0-100.0); MONOCYTES % (AUTO) 7.4 % (0.0-13.0); NEUTROPHILS # (AUTO) 14.3 x10^3/uL (2.2-4.8); NEUTROPHILS % (AUTO) 83.9 % (42.0-75.0); PLATELET COUNT 249 X10^3/uL (150.0-450.0); RED BLOOD COUNT 2.38 X10^6/uL (4.7-6.0); RED CELL DISTRIBUTION WIDTH 15.1 % (11.6-16.5); WHITE BLOOD COUNT 17.1 X10^3/uL (3.6-10.0)
[2023-10-21 19:33] LABS: HEMOGLOBIN 6.9 g/dL (13.5-18.0)
--- NOTE | 2023-10-21 19:51 | PCM.PROG ---
Progress Note Progress Note for Day of Date of Exam: 10/21/23 Subjective Subjective: The patient had no acute problems last night. His right lower extremity is still cool to touch. He is currently on no stairs to the OR. In the OR this morning, he was found to have an occluded right external iliac stent and a superficial femoral artery stent. I see the patient's hemoglobin has dropped to 7.2. His blood pressure has also dropped this afternoon to 109/60. Repeat CBC showed that his hemoglobin dropped to 6.9 later on, so we decided to go ahead and give him 2 units of blood this evening. I will go ahead and pre- medicate him with Benadryl and Tylenol. If needed will give him Lasix between the first and second dose. Regarding the patient's demeanor, he has been calmer since we have started the oral Seroquel. Past Medical Family Social History Allergies: Allergies No Known Allergies Allergy (Verified 10/13/23 13:28) Review of Systems ROS: Changes notes (describe) (Chills/rigors) Vital Signs and I&O's Vital Signs: Vital Signs Temperature 99.4 F Pulse Rate 70 Pulse Rate 88 Pulse Rate 89 Pulse Rate 77 Pulse Rate 75 Pulse Rate 79 Pulse Rate 61 Pulse Rate 61 Respiratory Rate 30 Respiratory Rate 20 Respiratory Rate 27 Respiratory Rate 29 Respiratory Rate 22 Respiratory Rate 23 Respiratory Rate 24 Respiratory Rate 20 Respiratory Rate 21 Blood Pressure 109/60 Blood Pressure 137/68 Blood Pressure 95/53 Blood Pressure 107/71 Blood Pressure 107/67 Blood Pressure 116/62 Blood Pressure 106/53 Blood Pressure 106/57 O2 Sat by Pulse Oximetry 96 O2 Sat by Pulse Oximetry 88 O2 Sat by Pulse Oximetry 91 O2 Sat by Pulse Oximetry 97 O2 Sat by Pulse Oximetry 90 O2 Sat by Pulse Oximetry 96 O2 Sat by Pulse Oximetry 99 O2 Sat by Pulse Oximetry 99 Intake and Output: Intake & Output 10/19/23 10/20/23 10/21/23 10/22/23 11:59 11:59 11:59 11:59 Intake Total 1887 / 1887 4550 / 4550 3192 / 3192 480 / 480 Output Total 2550 / 2550 7650 / 7750 3229 / 3229 400 / 400 Balance -663 / -663 -3100 / -3200 -37 / -37 80 / 80 Physical Exam Oriented: Normal, Time, Person and Place Eyes: Normal Ear: Normal Nose: Normal Throat: Normal Respiratory: Normal Cardiovascular: Normal and Other (left femoral pulse is palpable , left foot warm with biphasic flow at ankle of arteries , right foot cool with no palapble femoral pulse and no doppler signal at the right ankle . ) : Normal Auscultation: Bowel Sounds: Normal Tenderness: Normal Skin: Normal Musculoskeletal: Normal Psychiatric: Anxiety and Agitation Mood Description: Anxious Affect: Anxious Speech Pattern: Clear and Appropriate Laboratory and Diagnostics 10/21/23 19:10 10/19/23 04:49 Labs: 10/15/23 08:45 Foot - Right Wound Gram Stain - Final 10/15/23 08:45 Foot - Right Wound Culture - Preliminary 10/13/23 20:48 Blood Blood Culture - Final 10/13/23 20:37 Blood Blood Culture - Final 10/16/23 16:30 Urine,Catheterized Urine Culture - Final 10/15/23 03:45 Urine,Clean Catch Urine Culture - Final Laboratory WBC 17.1 X10^3/uL (3.6-10.0) H 10/21/23 19:10 RBC 2.38 X10^6/uL (4.7-6.0) L 10/21/23 19:10 Hgb 6.9 g/dL (13.5-18.0) L* 10/21/23 19:10 Hct 21.8 % (42.0-54.0) L 10/21/23 19:10 MCV 91.4 fL (80.0-100.0) 10/21/23 19:10 MCH 29.0 pg (27.0-34.0) 10/21/23 19:10 MCHC 31.7 g/dL (33.0-35.0) L 10/21/23 19:10 RDW 15.1 % (11.6-16.5) 10/21/23 19:10 Plt Count 249 X10^3/uL (150.0-450.0) 10/21/23 19:10 Plt Count Comment Adequate (ADEQUATE) 10/20/23 13:25 MPV 8.0 fL (7.4-11.0) 10/21/23 19:10 Neut % (Auto) 83.9 % (42.0-75.0) H 10/21/23 19:10 Lymph % (Auto) 7.8 % (21.0-51.0) L 10/21/23 19:10 Summers % (Auto) 7.4 % (0.0-13.0) 10/21/23 19:10 Eos % (Auto) 0.4 % (0.9-2.9) L 10/21/23 19:10 Baso % (Auto) 0.5 % (0.2-1.0) 10/21/23 19:10 Neut # (Auto) 14.3 x10^3/uL (2.2-4.8) H 10/21/23 19:10 Lymph # (Auto) 1.3 X10^3/uL (1.3-2.9) 10/21/23 19:10 Summers # (Auto) 1.3 x10^3/uL (0.3-0.8) H 10/21/23 19:10 Eos # (Auto) 0.1 x10^3/uL (0.0-0.2) 10/21/23 19:10 Baso # (Auto) 0.1 X10^3/uL (0.0-0.1) 10/21/23 19:10 Absolute Nucleated RBC 0.2 /100WBC 10/21/23 19:10 Total Counted 100 10/20/23 13:25 Neutrophils % (Manual) 85 % (39-76) H 10/20/23 13:25 Band Neutrophils % 1 % (0-10) 10/20/23 13:25 Lymphocytes % (Manual) 7 % (13-43) L 10/20/23 13:25 Monocytes % (Manual) 7 % (4-9) 10/20/23 13:25 Eosinophils % (Manual) 1 % (0-6) 10/19/23 19:10 Basophils % (Manual) 1 % (0-1) 10/18/23 04:00 Metamyelocytes % Cancelled 10/14/23 04:26 Myelocytes % Cancelled 10/14/23 04:26 Promyelocytes % Cancelled 10/14/23 04:26 Nucleated RBCs 1 10/19/23 04:49 Atypical Lymphocytes Cancelled 10/14/23 04:26 Blast Cells Cancelled 10/14/23 04:26 Smudge Cells Cancelled 10/14/23 04:26 Toxic Granulation Cancelled 10/14/23 04:26 Dohle Bodies Cancelled 10/14/23 04:26 Binu Rods Cancelled 10/14/23 04:26 Plt Clumps, EDTA Cancelled 10/14/23 04:26 Giant Platelets Cancelled 10/14/23 04:26 Plt Morphology Comment Normal (NORMAL) 10/20/23 13:25 RBC Morphology Normal (NORMAL) 10/20/23 13:25 Dimorphic RBCs Cancelled 10/14/23 04:26 Polychromasia Cancelled 10/14/23 04:26 Hypochromasia Cancelled 10/14/23 04:26 Poikilocytosis Cancelled 10/14/23 04:26 Basophilic Stippling Cancelled 10/14/23 04:26 Anisocytosis Cancelled 10/14/23 04:26 Microcytosis Cancelled 10/14/23 04:26 Macrocytosis Cancelled 10/14/23 04:26 Spherocytes Cancelled 10/14/23 04:26 Pappenheimer Bodies Cancelled 10/14/23 04:26 Sickle Cells Cancelled 10/14/23 04:26 Target Cells Present 10/17/23 06:05 Tear Drop Cells Cancelled 10/14/23 04:26 Ovalocytes Cancelled 10/14/23 04:26 Stomatocytes Cancelled 10/14/23 04:26 Helmet Cells Cancelled 10/14/23 04:26 [place] Bodies Cancelled 10/14/23 04:26 [place] Rings Cancelled 10/14/23 04:26 [place] Cells Cancelled 10/14/23 04:26 Crenated Cell Cancelled 10/14/23 04:26 Acanthocytes (Spur) Cancelled 10/14/23 04:26 Rouleaux Cancelled 10/14/23 04:26 Schistocytes Cancelled 10/14/23 04:26 Absolute Retic 0.0773 10^6/uL 10/14/23 09:30 Percent Retic 2.28 % (0.8-2.2) H 10/14/23 09:30 PT 16.7 SECONDS (11.8-14.3) 10/16/23 16:04 INR Target Range - 10/16/23 16:04 INR 1.39 (0.8-1.3) H 10/16/23 16:04 APTT 36.1 SECONDS (22.9-36.5) 10/21/23 19:10 PTT Comment - 10/21/23 19:10 Fibrinogen 563 mg/dL (239-489) H 10/21/23 19:10 Factor XII Activity 90 10/13/23 16:14 Sample Site Rrad 10/16/23 16:03 ABG pH 7.570 (7.35-7.45) H* 10/16/23 16:03 ABG pCO2 36.0 mmHg (35.0-45.0) 10/16/23 16:03 ABG pO2 61.0 mmHg (80.0-100.0) L 10/16/23 16:03 ABG HCO3 33.0 mmol/L (22-26) H* 10/16/23 16:03 ABG O2 Saturation 94.0 % (90-100) 10/16/23 16:03 ABG Base Excess 10.3 mmol/L (-2.0-2.0) H 10/16/23 16:03 Ronnie Test Pos 10/16/23 16:03 A-a Gradient 122.0 mmHg 10/16/23 16:03 FiO2 32.0 10/16/23 16:03 Blood Gas Comments Pt holly well elj cdn 10/16/23 16:03 Sodium 132 mmol/L (136-145) L 10/19/23 04:49 Corrected Sodium 133 mmol/L (136-145) L 10/19/23 04:49 Potassium 4.1 mmol/L (3.5-5.1) 10/19/23 04:49 Chloride 95 mmol/L (98-107) L 10/19/23 04:49 Carbon Dioxide 33.6 mmol/L (21-32) H 10/19/23 04:49 BUN 13 mg/dL (7-18) 10/19/23 04:49 Creatinine 1.20 mg/dL (0.70-1.30) 10/19/23 04:49 Est GFR (MDRD) Af Amer > 60 (>60) 10/19/23 04:49 Est GFR (MDRD) Non-Af > 60 (>60) 10/19/23 04:49 Glucose 132 mg/dL (65-99) H 10/19/23 04:49 POC Glucose (mg/dL) 192 mg/dL (65-99) H 10/21/23 16:50 Hemoglobin A1c 7.5 % 10/13/23 13:30 Calcium 8.1 mg/dL (8.5-10.1) L 10/19/23 04:49 Corrected Calcium 10.1 mg/dL (8.5-10.1) 10/19/23 04:49 Magnesium 2.0 mg/dL (2.0-2.9) 10/16/23 01:35 Iron 14 ug/dL (50-175) L 10/14/23 09:30 TIBC 175 ug/dL (250-450) L 10/14/23 09:30 Transferrin 140 mg/dL (202-364) L 10/14/23 09:30 Ferritin 853 ng/mL (26-388) H 10/14/23 09:30 Total Bilirubin 0.80 mg/dL (0.2-1.0) 10/19/23 04:49 AST 60 Units/L (15-37) H 10/19/23 04:49 ALT 24 Units/L (12-78) 10/19/23 04:49 Alkaline Phosphatase 117 Units/L (46-116) H 10/19/23 04:49 Ammonia < 10 umol/L (11-32) L 10/16/23 16:04 Troponin I High Sens 59.6 ng/L (4.0-60.0) 10/13/23 17:13 B-Natriuretic Peptide 874 pg/mL (0-79) H 10/16/23 01:30 Total Protein 6.5 g/dL (6.4-8.2) 10/19/23 04:49 Albumin 1.5 g/dL (3.4-5.0) L 10/19/23 04:49 Globulin 5.0 g/dL (2.5-4.5) H 10/19/23 04:49 Albumin/Globulin Ratio 0.3 Ratio (1.1-2.1) L 10/19/23 04:49 Vitamin B12 370 pg/mL (193-986) 10/14/23 09:30 Folate 8.6 ng/mL (>8.6) 10/14/23 09:30 Specimen Type Catherized urine 10/16/23 16:30 Urine Color Dark yellow (YELLOW) 10/16/23 16:30 Urine Appearance Clear (CLEAR) 10/16/23 16:30 Urine pH 6.0 (5.0 - 8.0) 10/16/23 16:30 Ur Specific [place] 1.020 (1.000-1.030) 10/16/23 16:30 Urine Protein 3+ (NEGATIVE) 10/16/23 16:30 Urine Glucose (UA) Negative (NEGATIVE) 10/16/23 16:30 Urine Ketones Negative (NEGATIVE) 10/16/23 16:30 Urine Blood 3+ (NEGATIVE) 10/16/23 16: Urine Nitrite Negative (NEGATIVE) 10/16/23 16:30 Urine Bilirubin 1+ (NEGATIVE) 10/16/23 16:30 Urine Urobilinogen 2+ (NORMAL) 10/16/23 16:30 Ur Leukocyte Esterase 1+ (NEGATIVE) 10/16/23 16:30 Urine RBC 3-5 /HPF (0-3) A 10/16/23 16:30 Urine WBC 3-5 /HPF (0-5) 10/16/23 16:30 Ur Squamous Epith Cells Rare /HPF (NEGATIVE) 10/16/23 16:30 Ur Transition Epith Cell Rare /HPF (NEGATIVE) 10/13/23 20:08 Amorphous Sediment Trace /HPF (NEGATIVE) 10/16/23 16:30 Urine Bacteria Trace /HPF (NEGATIVE) 10/16/23 16:30 Hyaline Casts Numerous /LPF (NEGATIVE) 10/13/23 20:08 Urine Mucus Few /HPF (NEGATIVE) 10/16/23 16:30 Ur Culture Indicated? Yes/culture set up 10/16/23 16:30 Digoxin 0.56 ng/mL (0.9-2) L 10/20/23 09:38 Urine Opiates Screen Negative (NEG=<300) 10/13/23 20:08 Urine Methadone Screen Negative (NEG=<300) 10/13/23 20:08 Ur Barbiturates Screen Negative (NEG=<200) 10/13/23 20:08 Ur Phencyclidine Scrn Negative (NEG=<25) 10/13/23 20:08 Ur Amphetamines Screen Negative (NEG=<1000) 10/13/23 20:08 U Benzodiazepines Scrn Negative (NEG=<200) 10/13/23 20:08 Urine Cocaine Screen Positive (NEG=<300) 10/13/23 20:08 U Marijuana (THC) Screen Negative (NEG=<50) 10/13/23 20:08 Infect Dis PCR Plus see scanned report 10/15/23 03:45 Plan (1) Ischemic leg: Status: Acute Plan: Dr. Hinkle, vascular surgeon will be taking the patient to the OR today. We will follow-up with him after surgery. (2) Wound of right foot: Status: Acute Plan: Check wound culture and sensitivity. Continue IV Maxipime at this time. (3) Leukocytosis: Status: Acute Plan: IV antibiotics , but most likely elevation of WBC due to ischemic right foot. Continue IV Maxipime and Zyvox. (4) Atrial fibrillation: Status: Acute Qualifiers: Atrial fibrillation type: unspecified chronic Qualified Code(s): I48.20 - Chronic atrial fibrillation, unspecified Plan: Continue digoxin 0.25 mg p.o. daily along with Cardizem CD 180 mg 1 p.o. daily. Check digoxin level today. (5) Type 2 diabetes mellitus: Status: Acute Qualifiers: Diabetes mellitus middle or intermediate school principal insulin use: without residential use Plan: 1800 Praneeth ADA diet and sliding scale insulin. I will start Levemir 5 units subcutaneous injections twice daily (6) Essential (primary) hypertension: Status: Acute Plan: patient was hypotensive on admission. we will restart his medications when appropriate (7) Anemia: Status: Acute Plan: Transfused 2 units packed red blood cells today. Premedicate with Tylenol and Benadryl this evening. If needed we will give him Lasix between the first and second unit of blood this evening. (8) Dehydration: Status: Resolved Plan: bolus of fluids (9) Hyperlipidemia: Status: Acute Plan: Continue simvastatin 10 mg at at bedtime. (10) Cocaine abuse: Status: Acute Plan: will need to observe for withdrawal and treat accordingly. (11) Urinary tract infection: Status: Acute Qualifiers: Urinary tract infection type: acute cystitis Hematuria presence: with hematuria Qualified Code(s): N30.01 - Acute cystitis with hematuria Plan: The patient is currently on Maxipime. We will follow up with the u rine culture and sensitivity results when available. Check we will change antibiotics if needed
[2023-10-21] MEDS: XARELTO PO SCH (20:19)
[2023-10-21] MEDS: TYLENOL 325 MG TAB PO ONE (23:05)
[2023-10-21] MEDS: BENADRYL CAP/TAB 25 MG PO ONE (23:06)
[2023-10-22] MEDS: NS 500 ML IV 500 ML IV ONE (01:25)
[2023-10-22 05:54] LABS: BLOOD UREA NITROGEN 15 mg/dL (7-18); CALCIUM 7.8 mg/dL (8.5-10.1); CARBON DIOXIDE 31.4 mmol/L (21-32); CHLORIDE 100 mmol/L (98-107); COR NA(FOR HYPERGLY) 136 mmol/L (136-145); GLUCOSE 143 mg/dL (65-99); POTASSIUM 4.3 mmol/L (3.5-5.1); SODIUM 135 mmol/L (136-145); eGFR NON BLACK RACES 59 (>60)
[2023-10-22 06:24] LABS: BASOPHILS # (AUTO) 0.2 X10^3/uL (0.0-0.1); BASOPHILS % (AUTO) 0.8 % (0.2-1.0); EOSINOPHILS # (AUTO) 0.1 x10^3/uL (0.0-0.2); EOSINOPHILS % (AUTO) 0.5 % (0.9-2.9); HEMATOCRIT 26.6 % (42.0-54.0); HEMOGLOBIN 8.5 g/dL (13.5-18.0); LYMPHOCYTES # (AUTO) 2.1 X10^3/uL (1.3-2.9); LYMPHOCYTES % (AUTO) 9.4 % (21.0-51.0); MEAN CORPUSCULAR HEMOGLOBIN 28.8 pg (27.0-34.0); MEAN CORPUSCULAR VOLUME 90.1 fL (80.0-100.0); MONOCYTES # (AUTO) 1.8 x10^3/uL (0.3-0.8); MONOCYTES % (AUTO) 8.1 % (0.0-13.0); NEUTROPHILS # (AUTO) 18.3 x10^3/uL (2.2-4.8); NEUTROPHILS % (AUTO) 81.2 % (42.0-75.0); PLATELET COUNT 234 X10^3/uL (150.0-450.0); RED BLOOD COUNT 2.95 X10^6/uL (4.7-6.0); RED CELL DISTRIBUTION WIDTH 15.7 % (11.6-16.5); WHITE BLOOD COUNT 22.5 X10^3/uL (3.6-10.0)
[2023-10-22 07:01] LABS: BAND NEUTROPHILS % 0 % (0-10); BASOPHILS % (MANUAL) 0 % (0-1); PLATELET MORPHOLOGY COMMENT NORMAL (NORMAL)
[2023-10-22] MEDS ORDERED: ELIQUIS PO SCH (09:00)
[2023-10-22] MEDS: ZESTRIL TAB 20 MG ONE (10:07)
[2023-10-22] MEDS: LR 1,000 ML IV 1,000 ML with POTASSIUM CHLORIDE INJ 40 MEQ VIAL 40 MEQ, MAGNESIUM SULFA... IV SCH (10:26)
[2023-10-22] MEDS: BENADRYL CAP/TAB 25 MG PO ONE (10:56)
[2023-10-22] MEDS: NS 250 ML IV 25 ML IV PRN (10:57)
[2023-10-22] MEDS: TYLENOL 325 MG TAB PO ONE (10:57)
--- NOTE | 2023-10-22 16:06 | NOTE.SOAP ---
Soap Note Note for Day of Date of Exam: 10/22/23 Subjective Data Subjective Data: Patient presents with painful forefoot of right foot. States it has been that way for quite some time and just wants his toes cut off. Objective Data Objective Data: Edema noted to the right foot. Onset necrosis to the 4th and 5th digit. Partial thickness wound on the dorsal aspect of the right foot. Faintly palpable DP and PT Pain on palpation to the forefoot. Assessment Assessment: Gangrene, right foot Ischemia, RLE Plan Plan: Patient was seen bedside this am. Diagnosis and treatment discussed. Vascular intervention per Dr. Hinkle. Patient is developping necrosis and will likely lose his forefoot. Patient is amenable to amputation but we will wait for demarcation of the forefoot and see how he responds to vascular intervention. Treating conservatively at this time.
--- NOTE | 2023-10-22 18:54 | PCM.PROG ---
Progress Note Progress Note for Day of Date of Exam: 10/22/23 Subjective Subjective: The patient had no acute problems last night. His right lower extremity is still cool to touch. The patient has received 2 units of packed red blood cells. His hemoglobin is up to 8.5 today. His white blood cell count has also gone up to 22,500. He is still receiving IV Zyvox at this time. He had been receiving IV Maxipime as well but that was stopped yesterday. He has had blood cultures, and they have all been negative. He has also had a workup with chest X-rays and a urinalysis, which showed no infection. The patient told me this morning that he is ready for his right leg to be taken off because of the pain, and I will let his vascular surgeon, Dr. Hinkle, speak to him about this. The patient's atrial fibrillation is currently rate controlled with oral Cardizem and digoxin. He is anticoagulated with Eliquis 5 mg twice daily at this time. I was called by the ICU nurse this afternoon and she told me that his blood pressure is going down so I have ordered a lactic acid and we are also going to decrease his Seroquel from 50 mg 3 times daily to 25 mg 3 times daily as it is known Seroquel can cause a decrease in blood pressure. Past Medical Family Social History Allergies: Allergies No Known Allergies Allergy (Verified 10/13/23 13:28) Review of Systems ROS: Changes notes (describe) (Chills/rigors) Vital Signs and I&O's Vital Signs: Vital Signs Temperature 97.9 F Pulse Rate 63 Pulse Rate 67 Pulse Rate 69 Pulse Rate 63 Pulse Rate 67 Pulse Rate 65 Pulse Rate 67 Pulse Rate 64 Pulse Rate 62 Pulse Rate 67 Pulse Rate 70 Pulse Rate 90 Pulse Rate 75 Pulse Rate 72 Pulse Rate 79 Pulse Rate 82 Pulse Rate 82 Pulse Rate 77 Respiratory Rate 19 Respiratory Rate 20 Respiratory Rate 17 Respiratory Rate 17 Respiratory Rate 19 Respiratory Rate 15 Respiratory Rate 18 Respiratory Rate 21 Respiratory Rate 15 Respiratory Rate 18 Respiratory Rate 17 Respiratory Rate 19 Respiratory Rate 26 Respiratory Rate 21 Respiratory Rate 27 Respiratory Rate 12 Respiratory Rate 20 Respiratory Rate 20 Blood Pressure 115/60 Blood Pressure 103/61 Blood Pressure 100/58 Blood Pressure 97/51 Blood Pressure 93/50 Blood Pressure 84/45 Blood Pressure 97/50 Blood Pressure 111/58 Blood Pressure 101/55 Blood Pressure 92/53 Blood Pressure 92/53 Blood Pressure 101/56 Blood Pressure 90/55 Blood Pressure 95/55 O2 Sat by Pulse Oximetry 99 O2 Sat by Pulse Oximetry 96 O2 Sat by Pulse Oximetry 90 O2 Sat by Pulse Oximetry 89 O2 Sat by Pulse Oximetry 90 O2 Sat by Pulse Oximetry 90 O2 Sat by Pulse Oximetry 91 O2 Sat by Pulse Oximetry 90 O2 Sat by Pulse Oximetry 100 O2 Sat by Pulse Oximetry 96 O2 Sat by Pulse Oximetry 97 O2 Sat by Pulse Oximetry 94 O2 Sat by Pulse Oximetry 95 O2 Sat by Pulse Oximetry 99 O2 Sat by Pulse Oximetry 93 O2 Sat by Pulse Oximetry 95 Intake and Output: Intake & Output 10/20/23 10/21/23 10/22/23 10/23/23 11:59 11:59 11:59 11:59 Intake Total 4550 / 4550 3192 / 3192 2089 / 2089 1893 / 1893 Output Total 7650 / 7750 3229 / 3229 800 / 800 1650 / 1650 Balance -3100 / -3200 -37 / -37 1289 / 1289 243 / 243 Physical Exam Oriented: Normal, Time, Person and Place Eyes: Normal Ear: Normal Nose: Normal Throat: Normal Respiratory: Normal Cardiovascular: Normal and Other (left femoral pulse is palpable , left foot warm with biphasic flow at ankle of arteries , right foot cool with no palapble femoral pulse and no doppler signal at the right ankle . ) : Normal Auscultation: Bowel Sounds: Normal Tenderness: Normal Skin: Normal Musculoskeletal: Normal Psychiatric: Anxiety and Agitation Mood Description: Anxious Affect: Anxious Speech Pattern: Clear and Appropriate Laboratory and Diagnostics 10/22/23 05:35 10/22/23 05:35 Labs: 10/15/23 08:45 Foot - Right Wound Gram Stain - Final 10/15/23 08:45 Foot - Right Wound Culture - Final 10/13/23 20:48 Blood Blood Culture - Final 10/13/23 20:37 Blood Blood Culture - Final 10/16/23 16:30 Urine,Catheterized Urine Culture - Final 10/15/23 03:45 Urine,Clean Catch Urine Culture - Final Laboratory WBC 22.5 X10^3/uL (3.6-10.0) H 10/22/23 05:35 RBC 2.95 X10^6/uL (4.7-6.0) L 10/22/23 05:35 Hgb 8.5 g/dL (13.5-18.0) L 10/22/23 05:35 Hct 26.6 % (42.0-54.0) L 10/22/23 05:35 MCV 90.1 fL (80.0-100.0) 10/22/23 05:35 MCH 28.8 pg (27.0-34.0) 10/22/23 05:35 MCHC 32.0 g/dL (33.0-35.0) L 10/22/23 05:35 RDW 15.7 % (11.6-16.5) 10/22/23 05:35 Plt Count 234 X10^3/uL (150.0-450.0) 10/22/23 05:35 Plt Count Comment Adequate (ADEQUATE) 10/22/23 05:35 MPV 9.0 fL (7.4-11.0) 10/22/23 05:35 Neut % (Auto) 81.2 % (42.0-75.0) H 10/22/23 05:35 Lymph % (Auto) 9.4 % (21.0-51.0) L 10/22/23 05:35 [place] % (Auto) 8.1 % (0.0-13.0) 10/22/23 05:35 Eos % (Auto) 0.5 % (0.9-2.9) L 10/22/23 05:35 Baso % (Auto) 0.8 % (0.2-1.0) 10/22/23 05:35 Neut # (Auto) 18.3 x10^3/uL (2.2-4.8) H 10/22/23 05:35 Lymph # (Auto) 2.1 X10^3/uL (1.3-2.9) 10/22/23 05:35 [place] # (Auto) 1.8 x10^3/uL (0.3-0.8) H 10/22/23 05:35 Eos # (Auto) 0.1 x10^3/uL (0.0-0.2) 10/22/23 05:35 Baso # (Auto) 0.2 X10^3/uL (0.0-0.1) H 10/22/23 05:35 Absolute Nucleated RBC 0.4 /100WBC 10/22/23 05:35 Total Counted 100 10/22/23 05:35 Neutrophils % (Manual) 79 % (39-76) H 10/22/23 05:35 Band Neutrophils % 0 % (0-10) 10/22/23 05:35 Lymphocytes % (Manual) 13 % (13-43) 10/22/23 05:35 Monocytes % (Manual) 7 % (4-9) 10/22/23 05:35 Eosinophils % (Manual) 1 % (0-6) 10/22/23 05:35 Basophils % (Manual) 0 % (0-1) 10/22/23 05:35 Metamyelocytes % Cancelled 10/14/23 04:26 Myelocytes % Cancelled 10/14/23 04:26 Promyelocytes % Cancelled 10/14/23 04:26 Nucleated RBCs 1 10/19/23 04:49 Atypical Lymphocytes Cancelled 10/14/23 04:26 Blast Cells Cancelled 10/14/23 04:26 Smudge Cells Cancelled 10/14/23 04:26 Toxic Granulation Cancelled 10/14/23 04:26 Dohle Bodies Cancelled 10/14/23 04:26 Binu Rods Cancelled 10/14/23 04:26 Plt Clumps, EDTA Cancelled 10/14/23 04:26 Giant Platelets Cancelled 10/14/23 04:26 Plt Morphology Comment Normal (NORMAL) 10/22/23 05:35 RBC Morphology Normal (NORMAL) 10/22/23 05:35 Dimorphic RBCs Cancelled 10/14/23 04:26 Polychromasia Cancelled 10/14/23 04:26 Hypochromasia Cancelled 10/14/23 04:26 Poikilocytosis Cancelled 10/14/23 04:26 Basophilic Stippling Cancelled 10/14/23 04:26 Anisocytosis Cancelled 10/14/23 04:26 Microcytosis Cancelled 10/14/23 04:26 Macrocytosis Cancelled 10/14/23 04:26 Spherocytes Cancelled 10/14/23 04:26 Pappenheimer Bodies Cancelled 10/14/23 04:26 Sickle Cells Cancelled 10/14/23 04:26 Target Cells Present 10/17/23 06:05 Tear Drop Cells Cancelled 10/14/23 04:26 Ovalocytes Cancelled 10/14/23 04:26 Stomatocytes Cancelled 10/14/23 04:26 Helmet Cells Cancelled 10/14/23 04:26 Lujan-[place] Bodies Cancelled 10/14/23 04:26 [place] Rings Cancelled 10/14/23 04:26 [place] Cells Cancelled 10/14/23 04:26 Crenated Cell Cancelled 10/14/23 04:26 Acanthocytes (Spur) Cancelled 10/14/23 04:26 Rouleaux Cancelled 10/14/23 04:26 Schistocytes Cancelled 10/14/23 04:26 Absolute Retic 0.0773 10^6/uL 10/14/23 09:30 Percent Retic 2.28 % (0.8-2.2) H 10/14/23 09:30 PT 16.7 SECONDS (11.8-14.3) 10/16/23 16:04 INR Target Range - 10/16/23 16:04 INR 1.39 (0.8-1.3) H 10/16/23 16:04 APTT 36.1 SECONDS (22.9-36.5) 10/21/23 19:10 PTT Comment - 10/21/23 19:10 Fibrinogen 563 mg/dL (239-489) H 10/21/23 19:10 Factor XII Activity 90 10/13/23 16:14 Sample Site Rrad 10/16/23 16:03 ABG pH 7.570 (7.35-7.45) H* 10/16/23 16:03 ABG pCO2 36.0 mmHg (35.0-45.0) 10/16/23 16:03 ABG pO2 61.0 mmHg (80.0-100.0) L 10/16/23 16:03 ABG HCO3 33.0 mmol/L (22-26) H* 10/16/23 16:03 ABG O2 Saturation 94.0 % (90-100) 10/16/23 16:03 ABG Base Excess 10.3 mmol/L (-2.0-2.0) H 10/16/23 16:03 Ronnie Test Pos 10/16/23 16:03 A-a Gradient 122.0 mmHg 10/16/23 16:03 FiO2 32.0 10/16/23 16:03 Blood Gas Comments Pt holly well elj cdn 10/16/23 16:03 Sodium 135 mmol/L (136-145) L 10/22/23 05:35 Corrected Sodium 136 mmol/L (136-145) 10/22/23 05:35 Potassium 4.3 mmol/L (3.5-5.1) 10/22/23 05:35 Chloride 100 mmol/L (98-107) 10/22/23 05:35 Carbon Dioxide 31.4 mmol/L (21-32) 10/22/23 05:35 BUN 15 mg/dL (7-18) 10/22/23 05:35 Creatinine 1.30 mg/dL (0.70-1.30) 10/22/23 05:35 Est GFR (MDRD) Af Amer > 60 (>60) 10/22/23 05:35 Est GFR (MDRD) Non-Af 59 (>60) 10/22/23 05:35 Glucose 143 mg/dL (65-99) H 10/22/23 05:35 POC Glucose (mg/dL) 144 mg/dL (65-99) H 10/22/23 16:34 Hemoglobin A1c 7.5 % 10/13/23 13:30 Lactic Acid 1.6 mmol/L (0.4-2.0) 10/22/23 15:15 Calcium 7.8 mg/dL (8.5-10.1) L 10/22/23 05:35 Corrected Calcium 10.1 mg/dL (8.5-10.1) 10/19/23 04:49 Magnesium 2.4 mg/dL (2.0-2.9) 10/22/23 05:35 Iron 14 ug/dL (50-175) L 10/14/23 09:30 TIBC 175 ug/dL (250-450) L 10/14/23 09:30 Transferrin 140 mg/dL (202-364) L 10/14/23 09:30 Ferritin 853 ng/mL (26-388) H 10/14/23 09:30 Total Bilirubin 0.80 mg/dL (0.2-1.0) 10/19/23 04:49 AST 60 Units/L (15-37) H 10/19/23 04:49 ALT 24 Units/L (12-78) 10/19/23 04:49 Alkaline Phosphatase 117 Units/L (46-116) H 10/19/23 04:49 Ammonia < 10 umol/L (11-32) L 10/16/23 16:04 Troponin I High Sens 59.6 ng/L (4.0-60.0) 10/13/23 17:13 B-Natriuretic Peptide 874 pg/mL (0-79) H 10/16/23 01:30 Total Protein 6.5 g/dL (6.4-8.2) 10/19/23 04:49 Albumin 1.5 g/dL (3.4-5.0) L 10/19/23 04:49 Globulin 5.0 g/dL (2.5-4.5) H 10/19/23 04:49 Albumin/Globulin Ratio 0.3 Ratio (1.1-2.1) L 10/19/23 04:49 Vitamin B12 370 pg/mL (193-986) 10/14/23 09:30 Folate 8.6 ng/mL (>8.6) 10/14/23 09:30 Specimen Type Catherized urine 10/16/23 16:30 Urine Color Dark yellow (YELLOW) 10/16/23 16:30 Urine Appearance Clear (CLEAR) 10/16/23 16:30 Urine pH 6.0 (5.0 - 8.0) 10/16/23 16:30 Ur Specific [place] 1.020 (1.000-1.030) 10/16/23 16:30 Urine Protein 3+ (NEGATIVE) 10/16/23 16:30 Urine Glucose (UA) Negative (NEGATIVE) 10/16/23 16:30 Urine Ketones Negative (NEGATIVE) 10/16/23 16:30 Urine Blood 3+ (NEGATIVE) 10/16/23 16:30 Urine Nitrite Negative (NEGATIVE) 10/16/23 16:30 Urine Bilirubin 1+ (NEGATIVE) 10/16/23 16:30 Urine Urobilinogen 2+ (NORMAL) 10/16/23 16:30 Ur Leukocyte Esterase 1+ (NEGATIVE) 10/16/23 16:30 Urine RBC 3-5 /HPF (0-3) A 10/16/23 16:30 Urine WBC 3-5 /HPF (0-5) 10/16/23 16:30 Ur Squamous Epith Cells Rare /HPF (NEGATIVE) 10/16/23 16:30 Ur Transition Epith Cell Rare /HPF (NEGATIVE) 10/13/23 20:08 Amorphous Sediment Trace /HPF (NEGATIVE) 10/16/23 16:30 Urine Bacteria Trace /HPF (NEGATIVE) 10/16/23 16:30 Hyaline Casts Numerous /LPF (NEGATIVE) 10/13/23 20:08 Urine Mucus Few /HPF (NEGATIVE) 10/16/23 16:30 Ur Culture Indicated? Yes/culture set up 10/16/23 16:30 Digoxin 0.56 ng/mL (0.9-2) L 10/20/23 09:38 Urine Opiates Screen Negative (NEG=<300) 10/13/23 20:08 Urine Methadone Screen Negative (NEG=<300) 10/13/23 20:08 Ur Barbiturates Screen Negative (NEG=<200) 10/13/23 20:08 Ur Phencyclidine Scrn Negative (NEG=<25) 10/13/23 20:08 Ur Amphetamines Screen Negative (NEG=<1000) 10/13/23 20:08 U Benzodiazepines Scrn Negative (NEG=<200) 10/13/23 20:08 Urine Cocaine Screen Positive (NEG=<300) 10/13/23 20:08 U Marijuana (THC) Screen Negative (NEG=<50) 10/13/23 20:08 Infect Dis PCR Plus see scanned report 10/15/23 03:45 Blood Type O POSITIVE 10/21/23 19:50 Antibody Screen Negative 10/21/23 19:50 Crossmatch See Detail 10/21/23 19:50 Radiology Reviewed: Yes Plan (1) Ischemic leg: Status: Acute Plan: The patient wishes to discuss amputation with his vascular surgeon Dr. Hinkle. (2) Wound of right foot: Status: Acute Plan: Check wound culture and sensitivity. Continue IV Zyvox at this time. (3) Leukocytosis: Status: Acute Narrative Support Text: Increasing white blood cell count. Plan: IV antibiotics , but most likely elevation of WBC due to ischemic right foot. Continue IV Zyvox. (4) Hypotension: Status: Acute Plan: Check lactic acid and decrease Seroquel to 25 mg 3 times daily for 50 mg 3 times daily. (5) Atrial fibrillation: Status: Acute Qualifiers: Atrial fibrillation type: unspecified chronic Qualified Code(s): I48.20 - Chronic atrial fibrillation, unspecified Plan: Continue digoxin 0.25 mg p.o. daily along with Cardizem CD 180 mg 1 p.o. daily. Check digoxin level today. The patient is anticoagulated with Eliquis 5 mg twice daily. (6) Type 2 diabetes mellitus: Status: Acute Qualifiers: Diabetes mellitus halfway insulin use: without buttermaker continuous churn use Plan: 1800 Praneeth ADA diet and sliding scale insulin. I will start Levemir 5 units subcutaneous injections twice daily (7) Essential (primary) hypertension: Status: Acute Plan: patient was hypotensive on admission. we will restart his med ications when appropriate (8) Anemia: Status: Acute Plan: Transfused 2 units packed red blood cells today. Premedicate with Tylenol and Benadryl this evening. If needed we will give him Lasix between the first and second unit of blood this evening. (9) Dehydration: Status: Resolved Plan: bolus of fluids (10) Hyperlipidemia: Status: Acute Plan: Continue simvastatin 10 mg at at bedtime. (11) Cocaine abuse: Status: Acute Plan: will need to observe for withdrawal and treat accordingly. (12) Urinary tract infection: Status: Acute Qualifiers: Urinary tract infection type: acute cystitis Hematuria presence: with hematuria Qualified Code(s): N30.01 - Acute cystitis with hematuria Plan: The patient is currently on Maxipime. We will follow up with the urine culture and sensitivity results when available. Check we will change anti biotics if needed
[2023-10-22] MEDS: SEROquel TAB 25 mg PO SCH (21:02)
--- NOTE | 2023-10-22 23:25 | NOTE.SOAP ---
Soap Note Note for Day of Date of Exam: 10/22/23 Subjective Data Subjective Data: s/p revascularization of the left leg s/p EKOS thrombolysis of the riight leg with stenting right iliac artery . Leg is warm but still has dark discoloration of right 5th toe and right forefoot. Has had some hypotention and medications for hypertension adjusted . Withdrawal symptroms appear to have resolved . A- fib with controlled rate. Objective Data Temperature: 98.2 F Pulse Rate: 85 Respiratory Rate: 23 Blood Pressure: 125/62 O2 Sat by Pulse Oximetry: 93 Objective Data: right foot as above, patient alert and oriented Assessment Assessment: ischemic right foot with occlusion of stents right leg, Stents opened up but right foot still may require amputation. Withdrawl improved. Heart rate and BP stable after adjusting medications. Plan Plan: Continue to monitor right foot. Will seek SNF placement.
[2023-10-23 05:27] LABS: BASOPHILS % (AUTO) 0.3 % (0.2-1.0); EOSINOPHILS # (AUTO) 0.1 x10^3/uL (0.0-0.2); EOSINOPHILS % (AUTO) 0.4 % (0.9-2.9); HEMATOCRIT 25.9 % (42.0-54.0); HEMOGLOBIN 8.5 g/dL (13.5-18.0); LYMPHOCYTES # (AUTO) 1.7 X10^3/uL (1.3-2.9); LYMPHOCYTES % (AUTO) 10.9 % (21.0-51.0); MEAN CORPUSCULAR HEMOGLOBIN 29.3 pg (27.0-34.0); MEAN CORPUSCULAR HGB CONC 32.8 g/dL (33.0-35.0); MEAN CORPUSCULAR VOLUME 89.4 fL (80.0-100.0); MEAN PLATELET VOLUME 8.6 fL (7.4-11.0); MONOCYTES % (AUTO) 6.7 % (0.0-13.0); NEUTROPHILS # (AUTO) 12.5 x10^3/uL (2.2-4.8); NEUTROPHILS % (AUTO) 81.7 % (42.0-75.0); PLATELET COUNT 242 X10^3/uL (150.0-450.0); RED CELL DISTRIBUTION WIDTH 15.6 % (11.6-16.5); WHITE BLOOD COUNT 15.3 X10^3/uL (3.6-10.0)
[2023-10-23 05:44] LABS: ALANINE AMINOTRANSFERASE 25 Units/L (12-78); ALBUMIN 1.6 g/dL (3.4-5.0); ALKALINE PHOSPHATASE 105 Units/L (46-116); ASPARTATE AMINO TRANSFERASE 42 Units/L (15-37); BLOOD UREA NITROGEN 14 mg/dL (7-18); CALCIUM 7.7 mg/dL (8.5-10.1); CARBON DIOXIDE 34.8 mmol/L (21-32); CHLORIDE 98 mmol/L (98-107); COR CA(FOR HYPOALB) 9.6 mg/dL (8.5-10.1); COR NA(FOR HYPERGLY) 138 mmol/L (136-145); CREATININE 1.31 mg/dL (0.70-1.30); GLUCOSE 155 mg/dL (65-99); POTASSIUM 3.7 mmol/L (3.5-5.1); SODIUM 137 mmol/L (136-145); TOTAL PROTEIN 6.3 g/dL (6.4-8.2); eGFR NON BLACK RACES 58 (>60)
[2023-10-23] MEDS: ZESTRIL TAB 20 MG ONE (09:28)
--- NOTE | 2023-10-23 16:00 | DR.PROGNOT ---
HOSPITAL PROGRESS NOTE Progress Note for Day of: Progress Note Date: 10/23/23 Chief Complaint Chief Complaint: foot pain History of Present Illness History of Present Illness: Patient here for ischemic right foot. He is being f ollowed by us on consult from vascular surgery who is primary team. Nurses report no overnight events. Patient still reports right foot pain but he was able to sleep overnight. Labs and vitals reviewed. Past Medical Family Social History Allergies: Allergies No Known Allergies Allergy (Verified 10/13/23 13:28) Review Of Systems ROS: Changes notes (describe) (Chills/rigors) Vital Signs Vital Signs: Vital Signs Temperature 98.3 F Pulse Rate 77 Pulse Rate 72 Pulse Rate 66 Pulse Rate 70 Pulse Rate 68 Pulse Rate 71 Respiratory Rate 18 Respiratory Rate 20 Respiratory Rate 22 Respiratory Rate 22 Respiratory Rate 18 Blood Pressure 133/62 Blood Pressure 110/56 Blood Pressure 100/53 O2 Sat by Pulse Oximetry 96 O2 Sat by Pulse Oximetry 90 O2 Sat by Pulse Oximetry 96 O2 Sat by Pulse Oximetry 92 O2 Sat by Pulse Oximetry 94 Physical Exam Oriented: Normal, Time, Person and Place Eyes: Normal Ear: Normal Nose: Normal Throat: Normal Respiratory: Normal Cardiovascular: Normal and Other (Cool right foot and ankle with some edema compared to the left. ) : Normal GI:Auscultation: Normal GI:Palpation: Normal GI: Tenderness: Normal Skin: Normal Musculoskeletal: Normal Psychiatric: Anxiety and Agitation Mood Description: Anxious Affect: Anxious Speech Pattern: Clear and Appropriate Laboratory and Diagnostics 10/23/23 04:39 10/23/23 04:39 Labs: 10/21/23 04:57 Blood Blood Culture - Preliminary 10/21/23 04:35 Blood Blood Culture - Preliminary 10/15/23 08:45 Foot - Right Wound Gram Stain - Final 10/15/23 08:45 Foot - Right Wound Culture - Final 10/13/23 20:48 Blood Blood Culture - Final 10/13/23 20:37 Blood Blood Culture - Final 10/16/23 16:30 Urine,Catheterized Urine Culture - Final 10/15/23 03:45 Urine,Clean Catch Urine Culture - Final Laboratory WBC 15.3 X10^3/uL (3.6-10.0) H 10/23/23 04:39 RBC 2.90 X10^6/uL (4.7-6.0) L 10/23/23 04:39 Hgb 8.5 g/dL (13.5-18.0) L 10/23/23 04:39 Hct 25.9 % (42.0-54.0) L 10/23/23 04:39 MCV 89.4 fL (80.0-100.0) 10/23/23 04:39 MCH 29.3 pg (27.0-34.0) 10/23/23 04:39 MCHC 32.8 g/dL (33.0-35.0) L 10/23/23 04:39 RDW 15.6 % (11.6-16.5) 10/23/23 04:39 Plt Count 242 X10^3/uL (150.0-450.0) 10/23/23 04:39 Plt Count Comment Adequate (ADEQUATE) 10/22/23 05:35 MPV 8.6 fL (7.4-11.0) 10/23/23 04:39 Neut % (Auto) 81.7 % (42.0-75.0) H 10/23/23 04:39 Lymph % (Auto) 10.9 % (21.0-51.0) L 10/23/23 04:39 [place] % (Auto) 6.7 % (0.0-13.0) 10/23/23 04:39 Eos % (Auto) 0.4 % (0.9-2.9) L 10/23/23 04:39 Baso % (Auto) 0.3 % (0.2-1.0) 10/23/23 04:39 Neut # (Auto) 12.5 x10^3/uL (2.2-4.8) H 10/23/23 04:39 Lymph # (Auto) 1.7 X10^3/uL (1.3-2.9) 10/23/23 04:39 [place] # (Auto) 1.0 x10^3/uL (0.3-0.8) H 10/23/23 04:39 Eos # (Auto) 0.1 x10^3/uL (0.0-0.2) 10/23/23 04:39 Baso # (Auto) 0.0 X10^3/uL (0.0-0.1) 10/23/23 04:39 Absolute Nucleated RBC 0.1 /100WBC 10/23/23 04:39 Total Counted 100 10/22/23 05:35 Neutrophils % (Manual) 79 % (39-76) H 10/22/23 05:35 Band Neutrophils % 0 % (0-10) 10/22/23 05:35 Lymphocytes % (Manual) 13 % (13-43) 10/22/23 05:35 Monocytes % (Manual) 7 % (4-9) 10/22/23 05:35 Eosinophils % (Manual) 1 % (0-6) 10/22/23 05:35 Basophils % (Manual) 0 % (0-1) 10/22/23 05:35 Metamyelocytes % Cancelled 10/14/23 04:26 Myelocytes % Cancelled 10/14/23 04:26 Promyelocytes % Cancelled 10/14/23 04:26 Nucleated RBCs 1 10/19/23 04:49 Atypical Lymphocytes Cancelled 10/14/23 04:26 Blast Cells Cancelled 10/14/23 04:26 Smudge Cells Cancelled 10/14/23 04:26 Toxic Granulation Cancelled 10/14/23 04:26 Dohle Bodies Cancelled 10/14/23 04:26 Binu Rods Cancelled 10/14/23 04:26 Plt Clumps, EDTA Cancelled 10/14/23 04:26 Giant Platelets Cancelled 10/14/23 04:26 Plt Morphology Comment Normal (NORMAL) 10/22/23 05:35 RBC Morphology Normal (NORMAL) 10/22/23 05:35 Dimorphic RBCs Cancelled 10/14/23 04:26 Polychromasia Cancelled 10/14/23 04:26 Hypochromasia Cancelled 10/14/23 04:26 Poikilocytosis Cancelled 10/14/23 04:26 Basophilic Stippling Cancelled 10/14/23 04:26 Anisocytosis Cancelled 10/14/23 04:26 Microcytosis Cancelled 10/14/23 04:26 Macrocytosis Cancelled 10/14/23 04:26 Spherocytes Cancelled 10/14/23 04:26 Pappenheimer Bodies Cancelled 10/14/23 04:26 Sickle Cells Cancelled 10/14/23 04:26 Target Cells Present 10/17/23 06:05 Tear Drop Cells Cancelled 10/14/23 04:26 Ovalocytes Cancelled 10/14/23 04:26 Stomatocytes Cancelled 10/14/23 04:26 Helmet Cells Cancelled 10/14/23 04:26 Lujan-[place] Bodies Cancelled 10/14/23 04:26 [place] Rings Cancelled 10/14/23 04:26 [place] Cells Cancelled 10/14/23 04:26 Crenated Cell Cancelled 10/14/23 04:26 Acanthocytes (Spur) Cancelled 10/14/23 04:26 Rouleaux Cancelled 10/14/23 04:26 Schistocytes Cancelled 10/14/23 04:26 Absolute Retic 0.0773 10^6/uL 10/14/23 09:30 Percent Retic 2.28 % (0.8-2.2) H 10/14/23 09:30 PT 16.7 SECONDS (11.8-14.3) 10/16/23 16:04 INR Target Range - 10/16/23 16:04 INR 1.39 (0.8-1.3) H 10/16/23 16:04 APTT 36.1 SECONDS (22.9-36.5) 10/21/23 19:10 PTT Comment - 10/21/23 19:10 Fibrinogen 563 mg/dL (239-489) H 10/21/23 19:10 Factor XII Activity 90 10/13/23 16:14 Sample Site Rrad 10/16/23 16:03 ABG pH 7.570 (7.35-7.45) H* 10/16/23 16:03 ABG pCO2 36.0 mmHg (35.0-45.0) 10/16/23 16:03 ABG pO2 61.0 mmHg (80.0-100.0) L 10/16/23 16:03 ABG HCO3 33.0 mmol/L (22-26) H* 10/16/23 16:03 ABG O2 Saturation 94.0 % (90-100) 10/16/23 16:03 ABG Base Excess 10.3 mmol/L (-2.0-2.0) H 10/16/23 16:03 Ronnie Test Pos 10/16/23 16:03 A-a Gradient 122.0 mmHg 10/16/23 16:03 FiO2 32.0 10/16/23 16:03 Blood Gas Comments Pt holly well elj cdn 10/16/23 16:03 Sodium 137 mmol/L (136-145) 10/23/23 04:39 Corrected Sodium 138 mmol/L (136-145) 10/23/23 04:39 Potassium 3.7 mmol/L (3.5-5.1) 10/23/23 04:39 Chloride 98 mmol/L (98-107) 10/23/23 04:39 Carbon Dioxide 34.8 mmol/L (21-32) H 10/23/23 04:39 BUN 14 mg/dL (7-18) 10/23/23 04:39 Creatinine 1.31 mg/dL (0.70-1.30) H 10/23/23 04:39 Est GFR (MDRD) Af Amer > 60 (>60) 10/23/23 04:39 Est GFR (MDRD) Non-Af 58 (>60) L 10/23/23 04:39 Glucose 155 mg/dL (65-99) H 10/23/23 04:39 POC Glucose (mg/dL) 153 mg/dL (65-99) H 10/23/23 11:59 Hemoglobin A1c 7.5 % 10/13/23 13:30 Lactic Acid 1.6 mmol/L (0.4-2.0) 10/22/23 15:15 Calcium 7.7 mg/dL (8.5-10.1) L 10/23/23 04:39 Corrected Calcium 9.6 mg/dL (8.5-10.1) 10/23/23 04:39 Magnesium 2.4 mg/dL (2.0-2.9) 10/22/23 05:35 Iron 14 ug/dL (50-175) L 10/14/23 09:30 TIBC 175 ug/dL (250-450) L 10/14/23 09:30 Transferrin 140 mg/dL (202-364) L 10/14/23 09:30 Ferritin 853 ng/mL (26-388) H 10/14/23 09:30 Total Bilirubin 0.80 mg/dL (0.2-1.0) 10/23/23 04:39 AST 42 Units/L (15-37) H 10/23/23 04:39 ALT 25 Units/L (12-78) 10/23/23 04:39 Alkaline Phosphatase 105 Units/L (46-116) 10/23/23 04:39 Ammonia < 10 umol/L (11-32) L 10/16/23 16:04 Troponin I High Sens 59.6 ng/L (4.0-60.0) 10/13/23 17:13 B-Natriuretic Peptide 874 pg/mL (0-79) H 10/16/23 01:30 Total Protein 6.3 g/dL (6.4-8.2) L 10/23/23 04:39 Albumin 1.6 g/dL (3.4-5.0) L 10/23/23 04:39 Globulin 4.7 g/dL (2.5-4.5) H 10/23/23 04:39 Albumin/Globulin Ratio 0.3 Ratio (1.1-2.1) L 10/23/23 04:39 Vitamin B12 370 pg/mL (193-986) 10/14/23 09:30 Folate 8.6 ng/mL (>8.6) 10/14/23 09:30 Specimen Type Catherized urine 10/16/23 16:30 Urine Color Dark yellow (YELLOW) 10/16/23 16:30 Urine Appearance Clear (CLEAR) 10/16/23 16:30 Urine pH 6.0 (5.0 - 8.0) 10/16/23 16:30 Ur Specific [place] 1.020 (1.000-1.030) 10/16/23 16:30 Urine Protein 3+ (NEGATIVE) 10/16/23 16:30 Urine Glucose (UA) Negative (NEGATIVE) 10/16/23 16:30 Urine Ketones Negative (NEGATIVE) 10/16/23 16:30 Urine Blood 3+ (NEGATIVE) 10/16/23 16:30 Urine Nitrite Negative (NEGATIVE) 10/16/23 16:30 Urine Bilirubin 1+ (NEGATIVE) 10/16/23 16:30 Urine Urobilinogen 2+ (NORMAL) 10/16/23 16:30 Ur Leukocyte Esterase 1+ (NEGATIVE) 10/16/23 16:30 Urine RBC 3-5 /HPF (0-3) A 10/16/23 16:30 Urine WBC 3-5 /HPF (0-5) 10/16/23 16:30 Ur Squamous Epith Cells Rare /HPF (NEGATIVE) 10/16/23 16:30 Ur Transition Epith Cell Rare /HPF (NEGATIVE) 10/13/23 20:08 Amorphous Sediment Trace /HPF (NEGATIVE) 10/16/23 16:30 Urine Bacteria Trace /HPF (NEGATIVE) 10/16/23 16:30 Hyaline Casts Numerous /LPF (NEGATIVE) 10/13/23 20:08 Urine Mucus Few /HPF (NEGATIVE) 10/16/23 16:30 Ur Culture Indicated? Yes/culture set up 10/16/23 16:30 Digoxin 0.56 ng/mL (0.9-2) L 10/20/23 09:38 Urine Opiates Screen Negative (NEG=<300) 10/13/23 20:08 Urine Methadone Screen Negative (NEG=<300) 10/13/23 20:08 Ur Barbiturates Screen Negative (NEG=<200) 10/13/23 20:08 Ur Phencyclidine Scrn Negative (NEG=<25) 10/13/23 20:08 Ur Amphetamines Screen Negative (NEG=<1000) 10/13/23 20:08 U Benzodiazepines Scrn Negative (NEG=<200) 10/13/23 20:08 Urine Cocaine Screen Positive (NEG=<300) 10/13/23 20:08 U Marijuana (THC) Screen Negative (NEG=<50) 10/13/23 20:08 Infect Dis PCR Plus see scanned report 10/15/23 03:45 Blood Type O POSITIVE 10/21/23 19:50 Antibody Screen Negative 10/21/23 19:50 Crossmatch See Detail 10/21/23 19:50 Assessment and Plan 1: DM2 without long-term insulin use. Continue current medications. Continue to monitor sugars. 2: Paroxysmal atrial fibrillation. Continue digoxin and Cardizem along with Eliquis. 3: Type 2 diabetes mellitus with peripheral arterial disease. Continue per vascular. Continue Eliquis and simvastatin. 4: Essential hypertension. Continue current.
--- NOTE | 2023-10-23 21:49 | DR.OPNOTE ---
OP NOTE Pre-Op Diagnosis: critical ischemia right leg,thrombosis of right iliac and SFA tents Post-Op Diagnosis: thombosis resolved , severe stenosis of right external / common iliac jordon Procedure Date Date Of Procedure: 10/21/23 Procedure: PROCEDURE: Thrombectomy of the right iliac and superficial femoral arteries and stents, stenting right external and common iliac arteries , arteriogram right leg, angioplasty right iliac and right superficial femoral arteries NARRATIVE : The patient was returned to the operating room. There was a sheath in the left femoral artery and a sheath in the left brachial artery with EKOS thrombolytic all the way down the right iliac and superficial femoral arteries. Patient had undergone 24 hours of thrombolysis. Patient returned to the operating suite and both groins and the left leg were prepped and draped in sterile fashion. Time out for the procedure obtained. Patient given IV seadtion supervised by myself. Repeat artereiogram the long sheath in the aorta showed resolution of most of the thrombus of the right iliac artery and right superficial from artery with 2 vessel runoff to the right ankle . The EKOS catheter had been removed and replaced with a 0.035 inch wire. Using Watertronix catheter we exchanged this wire for a 0.018 inch wire and over this wire we placed the Angiojet thrmbectomy device and performed thrombectomy of the right iliac artery and right superficial femoral artery. Once this was done repeat arteriogram showed evidence of stenosis of the [place] part of the right external iliac artery transitioning into the right common iliac artery. Over this area we placed a Colleen drug coated 7 millimeter x 40 millimeters stent and balloon dilated it with a Hudson balloon. We then used this Hudson balloon to balloon dilate the rest of the iliac artery and the superficial femoral artery where the stents have been placed previously Repeat arteriogram shoed excellent flow into the right foot with excellent resolution of the stenosis of the iliac artery on the right side. The sheath in the left brachial artery was removed and a tibial band used to compress this. Angioseal device used to close the puncture in the left femoral artery after exchanging the sheath over a 0.035 inch wire. Dressing applied to both of these wounds and the patient taken to the critical care unit in good condition. Type of Anesthesia: Local (0.5% Marcaine ) Anesthesia Comment: plus MAC Findings: thrombosis of right iliac and right superficial arteries and stents resolved , severe stenosis [place] right external iliac and right common iliac artereies . Type of Fluids Used:: Lactated Ringers Total Amount of Fluid Infused:: 400 cc Urine output: 50 cc EBL: < 25 cc Hardware: Colleen 7mmx 40 mm stent Complications:: none Needle/Sponge Count:: correct Disposition/Condition: Pt. tolerated procedure without difficulty. Extubated in the OR and taken to PACU in stable condition.
[2023-10-24 05:08] LABS: BASOPHILS % (AUTO) 0.4 % (0.2-1.0); EOSINOPHILS # (AUTO) 0.1 x10^3/uL (0.0-0.2); EOSINOPHILS % (AUTO) 0.6 % (0.9-2.9); HEMATOCRIT 26.4 % (42.0-54.0); HEMOGLOBIN 8.6 g/dL (13.5-18.0); LYMPHOCYTES # (AUTO) 1.6 X10^3/uL (1.3-2.9); LYMPHOCYTES % (AUTO) 14.5 % (21.0-51.0); MEAN CORPUSCULAR HEMOGLOBIN 29.4 pg (27.0-34.0); MEAN CORPUSCULAR HGB CONC 32.8 g/dL (33.0-35.0); MEAN CORPUSCULAR VOLUME 89.8 fL (80.0-100.0); MEAN PLATELET VOLUME 8.7 fL (7.4-11.0); MONOCYTES # (AUTO) 0.8 x10^3/uL (0.3-0.8); NEUTROPHILS # (AUTO) 8.6 x10^3/uL (2.2-4.8); NEUTROPHILS % (AUTO) 77.5 % (42.0-75.0); PLATELET COUNT 249 X10^3/uL (150.0-450.0); RED BLOOD COUNT 2.93 X10^6/uL (4.7-6.0); RED CELL DISTRIBUTION WIDTH 15.5 % (11.6-16.5)
[2023-10-24 05:21] LABS: ALANINE AMINOTRANSFERASE 25 Units/L (12-78); ALBUMIN 1.6 g/dL (3.4-5.0); ALKALINE PHOSPHATASE 114 Units/L (46-116); ASPARTATE AMINO TRANSFERASE 47 Units/L (15-37); BLOOD UREA NITROGEN 11 mg/dL (7-18); CHLORIDE 99 mmol/L (98-107); COR CA(FOR HYPOALB) 9.9 mg/dL (8.5-10.1); CREATININE 1.35 mg/dL (0.70-1.30); GLUCOSE 105 mg/dL (65-99); POTASSIUM 3.8 mmol/L (3.5-5.1); SODIUM 137 mmol/L (136-145); TOTAL PROTEIN 6.6 g/dL (6.4-8.2); eGFR NON BLACK RACES 56 (>60)
[2023-10-24 05:31] LABS: CARBON DIOXIDE 31.9 mmol/L (21-32)
[2023-10-24] MEDS: ZESTRIL TAB 20 MG ONE (09:22)
[2023-10-24] MEDS ORDERED: MAALOX or MYLANTA PO PRN (11:03)
--- NOTE | 2023-10-24 14:01 | DR.PROGNOT ---
HOSPITAL PROGRESS NOTE Progress Note for Day of: Progress Note Date: 10/24/23 Chief Complaint Chief Complaint: foot pain History of Present Illness History of Present Illness: Pt was initially requesting a transfer to [facility] yester day afternoon, but now wanting to stay. Vascular was planning BKA next week, but note mentions SNF. WBCs are trending down. Hgb stable. Past Medical Family Social History Allergies: Allergies No Known Allergies Allergy (Verified 10/13/23 13:28) Review Of Systems ROS: Changes notes (describe) (Chills/rigors) Vital Signs Vital Signs: Vital Signs Pulse Rate 66 Pulse Rate 63 Pulse Rate 69 Pulse Rate 68 Pulse Rate 65 Pulse Rate 72 Pulse Rate 66 Pulse Rate 74 Pulse Rate 65 Respiratory Rate 18 Respiratory Rate 16 Respiratory Rate 18 Respiratory Rate 16 Respiratory Rate 18 Respiratory Rate 20 Respiratory Rate 20 Blood Pressure 119/70 Blood Pressure 115/71 Blood Pressure 121/58 Blood Pressure 101/57 Blood Pressure 103/58 Blood Pressure 113/58 Blood Pressure 114/58 O2 Sat by Pulse Oximetry 97 O2 Sat by Pulse Oximetry 96 O2 Sat by Pulse Oximetry 97 O2 Sat by Pulse Oximetry 98 O2 Sat by Pulse Oximetry 100 O2 Sat by Pulse Oximetry 100 O2 Sat by Pulse Oximetry 97 O2 Sat by Pulse Oximetry 97 Physical Exam Oriented: Normal, Time, Person and Place Eyes: Normal Ear: Normal Nose: Normal Throat: Normal Respiratory: Normal Cardiovascular: Normal and Other (Cool right foot and ankle with some edema co mpared to the left. ) : Normal GI:Auscultation: Normal GI:Palpation: Normal GI: Tenderness: Normal Skin: Normal Musculoskeletal: Normal Psychiatric: Anxiety and Agitation Mood Description: Anxious Affect: Anxious Speech Pattern: Clear and Appropriate Laboratory and Diagnostics 10/24/23 04:31 10/24/23 04:31 Labs: 10/21/23 04:57 Blood Blood Culture - Preliminary 10/21/23 04:35 Blood Blood Culture - Preliminary 10/15/23 08:45 Foot - Right Wound Gram Stain - Final 10/15/23 08:45 Foot - Right Wound Culture - Final 10/13/23 20:48 Blood Blood Culture - Final 10/13/23 20:37 Blood Blood Culture - Final 10/16/23 16:30 Urine,Catheterized Urine Culture - Final 10/15/23 03:45 Urine,Clean Catch Urine Culture - Final Laboratory WBC 11.0 X10^3/uL (3.6-10.0) H 10/24/23 04:31 RBC 2.93 X10^6/uL (4.7-6.0) L 10/24/23 04:31 Hgb 8.6 g/dL (13.5-18.0) L 10/24/23 04:31 Hct 26.4 % (42.0-54.0) L 10/24/23 04:31 MCV 89.8 fL (80.0-100.0) 10/24/23 04:31 MCH 29.4 pg (27.0-34.0) 10/24/23 04:31 MCHC 32.8 g/dL (33.0-35.0) L 10/24/23 04:31 RDW 15.5 % (11.6-16.5) 10/24/23 04:31 Plt Count 249 X10^3/uL (150.0-450.0) 10/24/23 04:31 Plt Count Comment Adequate (ADEQUATE) 10/22/23 05:35 MPV 8.7 fL (7.4-11.0) 10/24/23 04:31 Neut % (Auto) 77.5 % (42.0-75.0) H 10/24/23 04:31 Lymph % (Auto) 14.5 % (21.0-51.0) L 10/24/23 04:31 [place] % (Auto) 7.0 % (0.0-13.0) 10/24/23 04:31 Eos % (Auto) 0.6 % (0.9-2.9) L 10/24/23 04:31 Baso % (Auto) 0.4 % (0.2-1.0) 10/24/23 04:31 Neut # (Auto) 8.6 x10^3/uL (2.2-4.8) H 10/24/23 04:31 Lymph # (Auto) 1.6 X10^3/uL (1.3-2.9) 10/24/23 04:31 [place] # (Auto) 0.8 x10^3/uL (0.3-0.8) 10/24/23 04:31 Eos # (Auto) 0.1 x10^3/uL (0.0-0.2) 10/24/23 04:31 Baso # (Auto) 0.0 X10^3/uL (0.0-0.1) 10/24/23 04:31 Absolute Nucleated RBC 0.2 /100WBC 10/24/23 04:31 Total Counted 100 10/22/23 05:35 Neutrophils % (Manual) 79 % (39-76) H 10/22/23 05:35 Band Neutrophils % 0 % (0-10) 10/22/23 05:35 Lymphocytes % (Manual) 13 % (13-43) 10/22/23 05:35 Monocytes % (Manual) 7 % (4-9) 10/22/23 05:35 Eosinophils % (Manual) 1 % (0-6) 10/22/23 05:35 Basophils % (Manual) 0 % (0-1) 10/22/23 05:35 Metamyelocytes % Cancelled 10/14/23 04:26 Myelocytes % Cancelled 10/14/23 04:26 Promyelocytes % Cancelled 10/14/23 04:26 Nucleated RBCs 1 10/19/23 04:49 Atypical Lymphocytes Cancelled 10/14/23 04:26 Blast Cells Cancelled 10/14/23 04:26 Smudge Cells Cancelled 10/14/23 04:26 Toxic Granulation Cancelled 10/14/23 04:26 Dohle Bodies Cancelled 10/14/23 04:26 Binu Rods Cancelled 10/14/23 04:26 Plt Clumps, EDTA Cancelled 10/14/23 04:26 Giant Platelets Cancelled 10/14/23 04:26 Plt Morphology Comment Normal (NORMAL) 10/22/23 05:35 RBC Morphology Normal (NORMAL) 10/22/23 05:35 Dimorphic RBCs Cancelled 10/14/23 04:26 Polychromasia Cancelled 10/14/23 04:26 Hypochromasia Cancelled 10/14/23 04:26 Poikilocytosis Cancelled 10/14/23 04:26 Basophilic Stippling Cancelled 10/14/23 04:26 Anisocytosis Cancelled 10/14/23 04:26 Microcytosis Cancelled 10/14/23 04:26 Macrocytosis Cancelled 10/14/23 04:26 Spherocytes Cancelled 10/14/23 04:26 Pappenheimer Bodies Cancelled 10/14/23 04:26 Sickle Cells Cancelled 10/14/23 04:26 Target Cells Present 10/17/23 06:05 Tear Drop Cells Cancelled 10/14/23 04:26 Ovalocytes Cancelled 10/14/23 04:26 Stomatocytes Cancelled 10/14/23 04:26 Helmet Cells Cancelled 10/14/23 04:26 Lujan-Bedford Bodies Cancelled 10/14/23 04:26 [place] Rings Cancelled 10/14/23 04:26 [place] Cells Cancelled 10/14/23 04:26 Crenated Cell Cancelled 10/14/23 04:26 Acanthocytes (Spur) Cancelled 10/14/23 04:26 Rouleaux Cancelled 10/14/23 04:26 Schistocytes Cancelled 10/14/23 04:26 Absolute Retic 0.0773 10^6/uL 10/14/23 09:30 Percent Retic 2.28 % (0.8-2.2) H 10/14/23 09:30 PT 16.7 SECONDS (11.8-14.3) 10/16/23 16:04 INR Target Range - 10/16/23 16:04 INR 1.39 (0.8-1.3) H 10/16/23 16:04 APTT 36.1 SECONDS (22.9-36.5) 10/21/23 19:10 PTT Comment - 10/21/23 19:10 Fibrinogen 563 mg/dL (239-489) H 10/21/23 19:10 Factor XII Activity 90 10/13/23 16:14 Sample Site Rrad 10/16/23 16:03 ABG pH 7.570 (7.35-7.45) H* 10/16/23 16:03 ABG pCO2 36.0 mmHg (35.0-45.0) 10/16/23 16:03 ABG pO2 61.0 mmHg (80.0-100.0) L 10/16/23 16:03 ABG HCO3 33.0 mmol/L (22-26) H* 10/16/23 16:03 ABG O2 Saturation 94.0 % (90-100) 10/16/23 16:03 ABG Base Excess 10.3 mmol/L (-2.0-2.0) H 10/16/23 16:03 Ronnie Test Pos 10/16/23 16:03 A-a Gradient 122.0 mmHg 10/16/23 16:03 FiO2 32.0 10/16/23 16:03 Blood Gas Comments Pt holly well elj cdn 10/16/23 16:03 Sodium 137 mmol/L (136-145) 10/24/23 04:31 Corrected Sodium TNP 10/24/23 04:31 Potassium 3.8 mmol/L (3.5-5.1) 10/24/23 04:31 Chloride 99 mmol/L (98-107) 10/24/23 04:31 Carbon Dioxide 31.9 mmol/L (21-32) 10/24/23 04:31 BUN 11 mg/dL (7-18) 10/24/23 04:31 Creatinine 1.35 mg/dL (0.70-1.30) H 10/24/23 04:31 Est GFR (MDRD) Af Amer > 60 (>60) 10/24/23 04:31 Est GFR (MDRD) Non-Af 56 (>60) L 10/24/23 04:31 Glucose 105 mg/dL (65-99) H 10/24/23 04:31 POC Glucose (mg/dL) 149 mg/dL (65-99) H 10/24/23 11:39 Hemoglobin A1c 7.5 % 10/13/23 13:30 Lactic Acid 1.6 mmol/L (0.4-2.0) 10/22/23 15:15 Calcium 8.0 mg/dL (8.5-10.1) L 10/24/23 04:31 Corrected Calcium 9.9 mg/dL (8.5-10.1) 10/24/23 04:31 Magnesium 2.4 mg/dL (2.0-2.9) 10/22/23 05:35 Iron 14 ug/dL (50-175) L 10/14/23 09:30 TIBC 175 ug/dL (250-450) L 10/14/23 09:30 Transferrin 140 mg/dL (202-364) L 10/14/23 09:30 Ferritin 853 ng/mL (26-388) H 10/14/23 09:30 Total Bilirubin 0.80 mg/dL (0.2-1.0) 10/24/23 04:31 AST 47 Units/L (15-37) H 10/24/23 04:31 ALT 25 Units/L (12-78) 10/24/23 04:31 Alkaline Phosphatase 114 Units/L (46-116) 10/24/23 04:31 Ammonia < 10 umol/L (11-32) L 10/16/23 16:04 Troponin I High Sens 59.6 ng/L (4.0-60.0) 10/13/23 17:13 B-Natriuretic Peptide 874 pg/mL (0-79) H 10/16/23 01:30 Total Protein 6.6 g/dL (6.4-8.2) 10/24/23 04:31 Albumin 1.6 g/dL (3.4-5.0) L 10/24/23 04:31 Globulin 5.0 g/dL (2.5-4.5) H 10/24/23 04:31 Albumin/Globulin Ratio 0.3 Ratio (1.1-2.1) L 10/24/23 04:31 Vitamin B12 370 pg/mL (193-986) 10/14/23 09:30 Folate 8.6 ng/mL (>8.6) 10/14/23 09:30 Specimen Type Catherized urine 10/16/23 16:30 Urine Color Dark yellow (YELLOW) 10/16/23 16:30 Urine Appearance Clear (CLEAR) 10/16/23 16:30 Urine pH 6.0 (5.0 - 8.0) 10/16/23 16:30 Ur Specific [place] 1.020 (1.000-1.030) 10/16/23 16:30 Urine Protein 3+ (NEGATIVE) 10/16/23 16:30 Urine Glucose (UA) Negative (NEGATIVE) 10/16/23 16:30 Urine Ketones Negative (NEGATIVE) 10/16/23 16:30 Urine Blood 3+ (NEGATIVE) 10/16/23 16:30 Urine Nitrite Negative (NEGATIVE) 10/16/23 16:30 Urine Bilirubin 1+ (NEGATIVE) 10/16/23 16:30 Urine Urobilinogen 2+ (NORMAL) 10/16/23 16:30 Ur Leukocyte Esterase 1+ (NEGATIVE) 10/16/23 16:30 Urine RBC 3-5 /HPF (0-3) A 10/16/23 16:30 Urine WBC 3-5 /HPF (0-5) 10/16/23 16:30 Ur Squamous Epith Cells Rare /HPF (NEGATIVE) 10/16/23 16:30 Ur Transition Epith Cell Rare /HPF (NEGATIVE) 10/13/23 20:08 Amorphous Sediment Trace /HPF (NEGATIVE) 10/16/23 16:30 Urine Bacteria Trace /HPF (NEGATIVE) 10/16/23 16:30 Hyaline Casts Numerous /LPF (NEGATIVE) 10/13/23 20:08 Urine Mucus Few /HPF (NEGATIVE) 10/16/23 16:30 Ur Culture Indicated? Yes/culture set up 10/16/23 16:30 Digoxin 0.43 ng/mL (0.9-2) L 10/24/23 04:31 Urine Opiates Screen Negative (NEG=<300) 10/13/23 20:08 Urine Methadone Screen Negative (NEG=<300) 10/13/23 20:08 Ur Barbiturates Screen Negative (NEG=<200) 10/13/23 20:08 Ur Phencyclidine Scrn Negative (NEG=<25) 10/13/23 20:08 Ur Amphetamines Screen Negative (NEG=<1000) 10/13/23 20:08 U Benzodiazepines Scrn Negative (NEG=<200) 10/13/23 20:08 Urine Cocaine Screen Positive (NEG=<300) 10/13/23 20:08 U Marijuana (THC) Screen Negative (NEG=<50) 10/13/23 20:08 Infect Dis PCR Plus see scanned report 10/15/23 03:45 Blood Type O POSITIVE 10/21/23 19:50 Antibody Screen Negative 10/21/23 19:50 Crossmatch See Detail 10/21/23 19:50 Assessment and Plan 1: DM2 without long-term insulin use. Continue current medications. Continue to monitor sugars. 2: Paroxysmal atrial fibrillation. Continue digoxin and Cardizem along with Eliquis. 3: Type 2 diabetes mellitus with peripheral arterial disease. Continue per vascular. Continue Eliquis and simvastatin. 4: Essential hypertension. Continue current.
--- NOTE | 2023-10-24 18:17 | NOTE.SOAP ---
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 Leg has been saved but may still require forefoot vs below knee amputation. Patiend had said he wants to go to [place] Objective Data Temperature: 100.0 F Pulse Rate: 64 Respiratory Rate: 24 Blood Pressure: 128/62 O2 Sat by Pulse Oximetry: 94 Objective Data: Patient able to converse and answer questions. Withdrawal seems to be completed . Still with pain right foot. Right forefoot with dark discoloration, biphasic doppler signals of both PT and AT right foot. Assessment Assessment: Severe ischemia of the right foot secondary to thrombosed iliac and right superficial femoral artery stents requiring thrombolysis and subsequent additional stenting. Patient's right leg is improved but his foot is still in [place]. Withdrawal seems to be improved Plan Plan: Continue present care. Arrange trasfer to [place]
--- NOTE | 2023-10-24 18:27 | NOTE.SOAP ---
Soap Note Note for Day of Date of Exam: 10/24/23 Subjective Data Subjective Data: Still improving neurological status. Right foot about the same Objective Data Temperature: 100.0 F Pulse Rate: 81 Respiratory Rate: 18 Blood Pressure: 120/60 O2 Sat by Pulse Oximetry: 96 Objective Data: Patient now does not want to go to [place], right forefoot still discolored with biphasic doppler signals of the right PT and AT arteries Assessment Assessment: SP, revascularization right foot, still with ischemia right forefoot Plan Plan: SNF pacement and observe fight foot to decide between trans mettarsal avs below knee amputation
[2023-10-25 04:55] LABS: BASOPHILS % (AUTO) 0.6 % (0.2-1.0); EOSINOPHILS # (AUTO) 0.1 x10^3/uL (0.0-0.2); EOSINOPHILS % (AUTO) 0.6 % (0.9-2.9); HEMATOCRIT 25.9 % (42.0-54.0); HEMOGLOBIN 8.6 g/dL (13.5-18.0); LYMPHOCYTES # (AUTO) 1.4 X10^3/uL (1.3-2.9); LYMPHOCYTES % (AUTO) 15.8 % (21.0-51.0); MEAN CORPUSCULAR HEMOGLOBIN 29.9 pg (27.0-34.0); MEAN CORPUSCULAR HGB CONC 33.3 g/dL (33.0-35.0); MEAN CORPUSCULAR VOLUME 89.9 fL (80.0-100.0); MEAN PLATELET VOLUME 8.7 fL (7.4-11.0); MONOCYTES # (AUTO) 0.6 x10^3/uL (0.3-0.8); MONOCYTES % (AUTO) 7.3 % (0.0-13.0); NEUTROPHILS # (AUTO) 6.5 x10^3/uL (2.2-4.8); NEUTROPHILS % (AUTO) 75.7 % (42.0-75.0); PLATELET COUNT 256 X10^3/uL (150.0-450.0); RED BLOOD COUNT 2.88 X10^6/uL (4.7-6.0); RED CELL DISTRIBUTION WIDTH 15.6 % (11.6-16.5); WHITE BLOOD COUNT 8.6 X10^3/uL (3.6-10.0)
[2023-10-25 05:03] LABS: ALANINE AMINOTRANSFERASE 25 Units/L (12-78); ALBUMIN 1.7 g/dL (3.4-5.0); ALKALINE PHOSPHATASE 119 Units/L (46-116); ASPARTATE AMINO TRANSFERASE 36 Units/L (15-37); BLOOD UREA NITROGEN 11 mg/dL (7-18); CALCIUM 7.9 mg/dL (8.5-10.1); CARBON DIOXIDE 32.9 mmol/L (21-32); CHLORIDE 100 mmol/L (98-107); COR CA(FOR HYPOALB) 9.7 mg/dL (8.5-10.1); CREATININE 1.28 mg/dL (0.70-1.30); GLUCOSE 104 mg/dL (65-99); SODIUM 137 mmol/L (136-145); TOTAL PROTEIN 6.5 g/dL (6.4-8.2); eGFR NON BLACK RACES 60 (>60)
--- NOTE | 2023-10-25 16:37 | PCM.PROG ---
Progress Note Progress Note for Day of Date of Exam: 10/25/23 Subjective Subjective: The patient had no acute problems last night. His right lower extremity is still cool to touch. The patient is sitting up in bed and eating breakfast this morning. He states that he is feeling better over the last few days. He states that he is right lower extremity is less painful at this time. I do see that he is hypotensive so we are holding his oral antihypertensives at this time. We will give his Cardizem and digoxin for rate control for his atrial fibrillation today. His hemoglobin is improved to 8.6 today after he received 2 units of blood a few days ago. Recheck routine labs in the morning continue current treatment. Past Medical Family Social History Allergies: Allergies No Known Allergies Allergy (Verified 10/13/23 13:28) Review of Systems ROS: Changes notes (describe) (Chills/rigors) Vital Signs and I&O's Vital Signs: Vital Signs Temperature 98.2 F Pulse Rate 62 Pulse Rate 69 Pulse Rate 74 Pulse Rate 67 Pulse Rate 72 Pulse Rate 72 Pulse Rate 98 Pulse Rate 72 Pulse Rate 76 Pulse Rate 69 Pulse Rate 74 Respiratory Rate 24 Respiratory Rate 19 Respiratory Rate 24 Respiratory Rate 27 Respiratory Rate 22 Respiratory Rate 22 Respiratory Rate 32 Respiratory Rate 22 Respiratory Rate 22 Respiratory Rate 20 Blood Pressure 114/63 Blood Pressure 114/63 Blood Pressure 107/67 Blood Pressure 107/67 Blood Pressure 107/67 Blood Pressure 107/67 Blood Pressure 108/56 Blood Pressure 108/56 O2 Sat by Pulse Oximetry 100 O2 Sat by Pulse Oximetry 100 O2 Sat by Pulse Oximetry 100 O2 Sat by Pulse Oximetry 100 O2 Sat by Pulse Oximetry 100 O2 Sat by Pulse Oximetry 100 O2 Sat by Pulse Oximetry 95 Intake and Output: Intake & Output 10/23/23 10/24/23 10/25/23 10/26/23 11:59 11:59 11:59 11:59 Intake Total 3226 / 3226 3310 / 3310 1620 / 1620 120 / 120 Output Total 2150 / 2150 2850 / 2850 3050 / 3050 950 / 950 Balance 1076 / 1076 460 / 460 -1430 / -1430 -830 / -830 Physical Exam Oriented: Normal, Time, Person and Place Eyes: Normal Ear: Normal Nose: Normal Throat: Normal Respiratory: Normal Cardiovascular: Normal and Other (Cool right foot and ankle with some edema compared to the left. ) : Normal Auscultation: Bowel Sounds: Normal Tenderness: Normal Skin: Normal Musculoskeletal: Normal Psychiatric: Anxiety and Agitation Mood Description: Anxious Affect: Anxious Speech Pattern: Clear and Appropriate Laboratory and Diagnostics 10/25/23 04:10 10/25/23 04:10 Labs: 10/21/23 04:57 Blood Blood Culture - Preliminary 10/21/23 04:35 Blood Blood Culture - Preliminary 10/15/23 08:45 Foot - Right Wound Gram Stain - Final 10/15/23 08:45 Foot - Right Wound Culture - Final 10/13/23 20:48 Blood Blood Culture - Final 10/13/23 20:37 Blood Blood Culture - Final 10/16/23 16:30 Urine,Catheterized Urine Culture - Final 10/15/23 03:45 Urine,Clean Catch Urine Culture - Final Laboratory WBC 8.6 X10^3/uL (3.6-10.0) 10/25/23 04:10 RBC 2.88 X10^6/uL (4.7-6.0) L 10/25/23 04:10 Hgb 8.6 g/dL (13.5-18.0) L 10/25/23 04:10 Hct 25.9 % (42.0-54.0) L 10/25/23 04:10 MCV 89.9 fL (80.0-100.0) 10/25/23 04:10 MCH 29.9 pg (27.0-34.0) 10/25/23 04:10 MCHC 33.3 g/dL (33.0-35.0) 10/25/23 04:10 RDW 15.6 % (11.6-16.5) 10/25/23 04:10 Plt Count 256 X10^3/uL (150.0-450.0) 10/25/23 04:10 Plt Count Comment Adequate (ADEQUATE) 10/22/23 05:35 MPV 8.7 fL (7.4-11.0) 10/25/23 04:10 Neut % (Auto) 75.7 % (42.0-75.0) H 10/25/23 04:10 Lymph % (Auto) 15.8 % (21.0-51.0) L 10/25/23 04:10 [place] % (Auto) 7.3 % (0.0-13.0) 10/25/23 04:10 Eos % (Auto) 0.6 % (0.9-2.9) L 10/25/23 04:10 Baso % (Auto) 0.6 % (0.2-1.0) 10/25/23 04:10 Neut # (Auto) 6.5 x10^3/uL (2.2-4.8) H 10/25/23 04:10 Lymph # (Auto) 1.4 X10^3/uL (1.3-2.9) 10/25/23 04:10 [place] # (Auto) 0.6 x10^3/uL (0.3-0.8) 10/25/23 04:10 Eos # (Auto) 0.1 x10^3/uL (0.0-0.2) 10/25/23 04:10 Baso # (Auto) 0.0 X10^3/uL (0.0-0.1) 10/25/23 04:10 Absolute Nucleated RBC 0.2 /100WBC 10/25/23 04:10 Total Counted 100 10/22/23 05:35 Neutrophils % (Manual) 79 % (39-76) H 10/22/23 05:35 Band Neutrophils % 0 % (0-10) 10/22/23 05:35 Lymphocytes % (Manual) 13 % (13-43) 10/22/23 05:35 Monocytes % (Manual) 7 % (4-9) 10/22/23 05:35 Eosinophils % (Manual) 1 % (0-6) 10/22/23 05:35 Basophils % (Manual) 0 % (0-1) 10/22/23 05:35 Metamyelocytes % Cancelled 10/14/23 04:26 Myelocytes % Cancelled 10/14/23 04:26 Promyelocytes % Cancelled 10/14/23 04:26 Nucleated RBCs 1 10/19/23 04:49 Atypical Lymphocytes Cancelled 10/14/23 04:26 Blast Cells Cancelled 10/14/23 04:26 Smudge Cells Cancelled 10/14/23 04:26 Toxic Granulation Cancelled 10/14/23 04:26 Dohle Bodies Cancelled 10/14/23 04:26 Binu Rods Cancelled 10/14/23 04:26 Plt Clumps, EDTA Cancelled 10/14/23 04:26 Giant Platelets Cancelled 10/14/23 04:26 Plt Morphology Comment Normal (NORMAL) 10/22/23 05:35 RBC Morphology Normal (NORMAL) 10/22/23 05:35 Dimorphic RBCs Cancelled 10/14/23 04:26 Polychromasia Cancelled 10/14/23 04:26 Hypochromasia Cancelled 10/14/23 04:26 Poikilocytosis Cancelled 10/14/23 04:26 Basophilic Stippling Cancelled 10/14/23 04:26 Anisocytosis Cancelled 10/14/23 04:26 Microcytosis Cancelled 10/14/23 04:26 Macrocytosis Cancelled 10/14/23 04:26 Spherocytes Cancelled 10/14/23 04:26 Pappenheimer Bodies Cancelled 10/14/23 04:26 Sickle Cells Cancelled 10/14/23 04:26 Target Cells Present 10/17/23 06:05 Tear Drop Cells Cancelled 10/14/23 04:26 Ovalocytes Cancelled 10/14/23 04:26 Stomatocytes Cancelled 10/14/23 04:26 Helmet Cells Cancelled 10/14/23 04:26 Lujan-Stapleton Bodies Cancelled 10/14/23 04:26 [place] Rings Cancelled 10/14/23 04:26 Mona Cells Cancelled 10/14/23 04:26 Crenated Cell Cancelled 10/14/23 04:26 Acanthocytes (Spur) Cancelled 10/14/23 04:26 Rouleaux Cancelled 10/14/23 04:26 Schistocytes Cancelled 10/14/23 04:26 Absolute Retic 0.0773 10^6/uL 10/14/23 09:30 Percent Retic 2.28 % (0.8-2.2) H 10/14/23 09:30 PT 16.7 SECONDS (11.8-14.3) 10/16/23 16:04 INR Target Range - 10/16/23 16:04 INR 1.39 (0.8-1.3) H 10/16/23 16:04 APTT 36.1 SECONDS (22.9-36.5) 10/21/23 19:10 PTT Comment - 10/21/23 19:10 Fibrinogen 563 mg/dL (239-489) H 10/21/23 19:10 Factor XII Activity 90 10/13/23 16:14 Sample Site Rrad 10/16/23 16:03 ABG pH 7.570 (7.35-7.45) H* 10/16/23 16:03 ABG pCO2 36.0 mmHg (35.0-45.0) 10/16/23 16:03 ABG pO2 61.0 mmHg (80.0-100.0) L 10/16/23 16:03 ABG HCO3 33.0 mmol/L (22-26) H* 10/16/23 16:03 ABG O2 Saturation 94.0 % (90-100) 10/16/23 16:03 ABG Base Excess 10.3 mmol/L (-2.0-2.0) H 10/16/23 16:03 Ronnie Test Pos 10/16/23 16:03 A-a Gradient 122.0 mmHg 10/16/23 16:03 FiO2 32.0 10/16/23 16:03 Blood Gas Comments Pt holly well elj cdn 10/16/23 16:03 Sodium 137 mmol/L (136-145) 10/25/23 04:10 Corrected Sodium TNP 10/25/23 04:10 Potassium 4.0 mmol/L (3.5-5.1) 10/25/23 04:10 Chloride 100 mmol/L (98-107) 10/25/23 04:10 Carbon Dioxide 32.9 mmol/L (21-32) H 10/25/23 04:10 BUN 11 mg/dL (7-18) 10/25/23 04:10 Creatinine 1.28 mg/dL (0.70-1.30) 10/25/23 04:10 Est GFR (MDRD) Af Amer > 60 (>60) 10/25/23 04:10 Est GFR (MDRD) Non-Af 60 (>60) 10/25/23 04:10 Glucose 104 mg/dL (65-99) H 10/25/23 04:10 POC Glucose (mg/dL) 113 mg/dL (65-99) H 10/25/23 05:10 Hemoglobin A1c 7.5 % 10/13/23 13:30 Lactic Acid 1.6 mmol/L (0.4-2.0) 10/22/23 15:15 Calcium 7.9 mg/dL (8.5-10.1) L 10/25/23 04:10 Corrected Calcium 9.7 mg/dL (8.5-10.1) 10/25/23 04:10 Magnesium 2.4 mg/dL (2.0-2.9) 10/22/23 05:35 Iron 14 ug/dL (50-175) L 10/14/23 09:30 TIBC 175 ug/dL (250-450) L 10/14/23 09:30 Transferrin 140 mg/dL (202-364) L 10/14/23 09:30 Ferritin 853 ng/mL (26-388) H 10/14/23 09:30 Total Bilirubin 0.80 mg/dL (0.2-1.0) 10/25/23 04:10 AST 36 Units/L (15-37) 10/25/23 04:10 ALT 25 Units/L (12-78) 10/25/23 04:10 Alkaline Phosphatase 119 Units/L (46-116) H 10/25/23 04:10 Ammonia < 10 umol/L (11-32) L 10/16/23 16:04 Troponin I High Sens 59.6 ng/L (4.0-60.0) 10/13/23 17:13 B-Natriuretic Peptide 874 pg/mL (0-79) H 10/16/23 01:30 Total Protein 6.5 g/dL (6.4-8.2) 10/25/23 04:10 Albumin 1.7 g/dL (3.4-5.0) L 10/25/23 04:10 Globulin 4.8 g/dL (2.5-4.5) H 10/25/23 04:10 Albumin/Globulin Ratio 0.4 Ratio (1.1-2.1) L 10/25/23 04:10 Vitamin B12 370 pg/mL (193-986) 10/14/23 09:30 Folate 8.6 ng/mL (>8.6) 10/14/23 09:30 Specimen Type Catherized urine 10/16/23 16:30 Urine Color Dark yellow (YELLOW) 10/16/23 16:30 Urine Appearance Clear (CLEAR) 10/16/23 16:30 Urine pH 6.0 (5.0 - 8.0) 10/16/23 16:30 Ur Specific Roland 1.020 (1.000-1.030) 10/16/23 16:30 Urine Protein 3+ (NEGATIVE) 10/16/23 16:30 Urine Glucose (UA) Negative (NEGATIVE) 10/16/23 16:30 Urine Ketones Negative (NEGATIVE) 10/16/23 16:30 Urine Blood 3+ (NEGATIVE) 10/16/23 16:30 Urine Nitrite Negative (NEGATIVE) 10/16/23 16:30 Urine Bilirubin 1+ (NEGATIVE) 10/16/23 16:30 Urine Urobilinogen 2+ (NORMAL) 10/16/23 16:30 Ur Leukocyte Esterase 1+ (NEGATIVE) 10/16/23 16:30 Urine RBC 3-5 /HPF (0-3) A 10/16/23 16:30 Urine WBC 3-5 /HPF (0-5) 10/16/23 16:30 Ur Squamous Epith Cells Rare /HPF (NEGATIVE) 10/16/23 16:30 Ur Transition Epith Cell Rare /HPF (NEGATIVE) 10/13/23 20:08 Amorphous Sediment Trace /HPF (NEGATIVE) 10/16/23 16:30 Urine Bacteria Trace /HPF (NEGATIVE) 10/16/23 16:30 Hyaline Casts Numerous /LPF (NEGATIVE) 10/13/23 20:08 Urine Mucus Few /HPF (NEGATIVE) 10/16/23 16:30 Ur Culture Indicated? Yes/culture set up 10/16/23 16:30 Digoxin 0.43 ng/mL (0.9-2) L 10/24/23 04:31 Urine Opiates Screen Negative (NEG=<300) 10/13/23 20:08 Urine Methadone Screen Negative (NEG=<300) 10/13/23 20:08 Ur Barbiturates Screen Negative (NEG=<200) 10/13/23 20:08 Ur Phencyclidine Scrn Negative (NEG=<25) 10/13/23 20:08 Ur Amphetamines Screen Negative (NEG=<1000) 10/13/23 20:08 U Benzodiazepines Scrn Negative (NEG=<200) 10/13/23 20:08 Urine Cocaine Screen Positive (NEG=<300) 10/13/23 20:08 U Marijuana (THC) Screen Negative (NEG=<50) 10/13/23 20:08 Infect Dis PCR Plus see scanned report 10/15/23 03:45 Blood Type O POSITIVE 10/21/23 19:50 Antibody Screen Negative 10/21/23 19:50 Crossmatch See Detail 10/21/23 19:50 Plan (1) Ischemic leg: Status: Acute Plan: The patient wishes to discuss amputation with his vascular surgeon Dr. Hinkle. (2) Wound of right foot: Status: Acute Plan: Check wound culture and sensitivity. Continue IV Zyvox at this time. (3) Leukocytosis: Status: Acute Plan: IV antibiotics , but most likely elevation of WBC due to ischemic right foot. Continue IV Zyvox. (4) Hypotension: Status: Acute Plan: Hold oral hypertensive at this time today. Continue to monitor blood pressure today. We will give him his Cardizem and digoxin for rate control secondary to his atrial fibrillation. (5) Atrial fibrillation: Status: Acute Qualifiers: Atrial fibrillation type: unspecified chronic Qualified Code(s): I48.20 - Chronic atrial fibrillation, unspecified Plan: Continue digoxin 0.25 mg p.o. daily along with Cardizem CD 180 mg 1 p.o. daily. Check digoxin level today. The patient is anticoagulated with Eliquis 5 mg twice daily. (6) Type 2 diabetes mellitus: Status: Acute Qualifiers: Diabetes mellitus [facility] insulin use: without terminal block assembler use Plan: 1800 Praneeth ADA diet and sliding scale insulin. I will start Levemir 5 units subcutaneous injections twice daily (7) Essential (primary) hypertension: Status: Acute Plan: patient was hypotensive on admission. we will restart his medic ations when appropriate (8) Anemia: Status: Acute Plan: Transfused 2 units packed red blood cells today. Premedicate with Tylenol and Benadryl this evening. If needed we will give him Lasix between the first and second unit of blood this evening. (9) Dehydration: Status: Resolved Plan: bolus of fluids (10) Hyperlipidemia: Status: Acute Plan: Continue simvastatin 10 mg at at bedtime. (11) Cocaine abuse: Status: Acute Plan: will need to observe for withdrawal and treat accordingly. (12) Urinary tract infection: Status: Acute Qualifiers: Urinary tract infection type: acute cystitis Hematuria presence: with hematuria Qualified Code(s): N30.01 - Acute cystitis with hematuria Plan: The patient is currently on Maxipime. We will follow up with the urine culture and sensitivity results when available. Check we will change antibiotics if needed
--- NOTE | 2023-10-25 22:30 | NOTE.SOAP ---
Soap Note Note for Day of Date of Exam: 10/25/23 Subjective Data Subjective Data: S/p treatment of thrombosed right iliac artery stent and thrombosis of stents of the right SFA using EKOS thombolysis and stenting right iliac artery. All of this complicated by cocaine withdrawal. Patietn alert and oriented now. Right foot with ischemia of the forefoot. Was looking for SNF but not a candidate. Objective Data Temperature: 99.0 F Pulse Rate: 67 Respiratory Rate: 22 Blood Pressure: 119/63 O2 Sat by Pulse Oximetry: 99 Objective Data: awake and alert, right forefoot cool with dark discoloration of the toes right foot Assessment Assessment: Awaiting denarcation of right foot Plan Plan: Discharge to home in AM
[2023-10-26 05:05] LABS: BASOPHILS # (AUTO) 0.1 X10^3/uL (0.0-0.1); EOSINOPHILS % (AUTO) 0.6 % (0.9-2.9); HEMATOCRIT 26.1 % (42.0-54.0); HEMOGLOBIN 8.7 g/dL (13.5-18.0); LYMPHOCYTES % (AUTO) 14.1 % (21.0-51.0); MEAN CORPUSCULAR HEMOGLOBIN 29.9 pg (27.0-34.0); MEAN CORPUSCULAR HGB CONC 33.2 g/dL (33.0-35.0); MEAN PLATELET VOLUME 8.3 fL (7.4-11.0); MONOCYTES # (AUTO) 0.5 x10^3/uL (0.3-0.8); MONOCYTES % (AUTO) 7.4 % (0.0-13.0); NEUTROPHILS # (AUTO) 5.4 x10^3/uL (2.2-4.8); NEUTROPHILS % (AUTO) 76.9 % (42.0-75.0); PLATELET COUNT 270 X10^3/uL (150.0-450.0); RED CELL DISTRIBUTION WIDTH 15.7 % (11.6-16.5)
[2023-10-26 05:12] VITALS: TEMP 98.5
[2023-10-26 05:18] LABS: ALANINE AMINOTRANSFERASE 23 Units/L (12-78); ALBUMIN 1.7 g/dL (3.4-5.0); ALKALINE PHOSPHATASE 118 Units/L (46-116); ASPARTATE AMINO TRANSFERASE 32 Units/L (15-37); BLOOD UREA NITROGEN 14 mg/dL (7-18); CALCIUM 8.2 mg/dL (8.5-10.1); CARBON DIOXIDE 31.8 mmol/L (21-32); CHLORIDE 101 mmol/L (98-107); COR NA(FOR HYPERGLY) 139 mmol/L (136-145); CREATININE 1.37 mg/dL (0.70-1.30); GLUCOSE 145 mg/dL (65-99); POTASSIUM 3.8 mmol/L (3.5-5.1); SODIUM 138 mmol/L (136-145); TOTAL PROTEIN 6.5 g/dL (6.4-8.2); eGFR NON BLACK RACES 55 (>60)
[2023-10-26 06:02] VITALS: BP 120/78; PULSE 94; RESP 16; O2SAT 94
--- NOTE | 2023-10-26 09:53 | PCM.PROG ---
Progress Note Progress Note for Day of Date of Exam: 10/26/23 Subjective Subjective: The patient had no acute problems last night. His right lower extremity is still cool to touch, but not having pain at this time. He looks much more comfortable than he had in the previous days. He will be discharged home today by his vascular surgeon, Dr. Hinkle. We will continue him on his oral Cardizem CD 180mg daily, digoxin 0.25 mg daily, and Eliquis 5 mg twice daily, the rest of his home medications. I do see that he was previously on Xarelto, but this medication will not be continued. The patient has had some sloughing of the skin on his right foot. He has been cultured and it was negative for infection. He does have an extensive amount of sloughing but there is good pink viable tissue under the sloughing skin. We will cover him with gentamicin cream twice daily for infection prevention. Past Medical Family Social History Allergies: Allergies No Known Allergies Allergy (Verified 10/13/23 13:28) Review of Systems ROS: Changes notes (describe) (Chills/rigors) Vital Signs and I&O's Vital Signs: Vital Signs Temperature 98.5 F Pulse Rate 94 Pulse Rate 82 Pulse Rate 77 Pulse Rate 76 Pulse Rate 70 Respiratory Rate 16 Respiratory Rate 18 Respiratory Rate 24 Respiratory Rate 20 Respiratory Rate 18 Blood Pressure 120/78 Blood Pressure 117/62 Blood Pressure 113/53 Blood Pressure 120/76 Blood Pressure 109/55 O2 Sat by Pulse Oximetry 94 O2 Sat by Pulse Oximetry 95 O2 Sat by Pulse Oximetry 96 O2 Sat by Pulse Oximetry 95 O2 Sat by Pulse Oximetry 95 Intake and Output: Intake & Output 10/23/23 10/24/23 10/25/23 10/26/23 11:59 11:59 11:59 11:59 Intake Total 3226 / 3226 3310 / 3310 1620 / 1620 1420 / 1420 Output Total 2150 / 2150 2850 / 2850 3050 / 3050 2350 / 2350 Balance 1076 / 1076 460 / 460 -1430 / -1430 -930 / -930 Physical Exam Oriented: Normal, Time, Person and Place Eyes: Normal Ear: Normal Nose: Normal Throat: Normal Respiratory: Normal Cardiovascular: Normal and Other (Cool right foot and ankle with some edema compared to the left. ) : Normal Auscultation: Bowel Sounds: Normal Tenderness: Normal Skin: Normal Musculoskeletal: Normal Psychiatric: Anxiety and Agitation Mood Description: Anxious Affect: Anxious Speech Pattern: Clear and Appropriate Laboratory and Diagnostics 10/26/23 04:13 10/26/23 04:13 Labs: 10/21/23 04:57 Blood Blood Culture - Final 10/21/23 04:35 Blood Blood Culture - Final 10/15/23 08:45 Foot - Right Wound Gram Stain - Final 10/15/23 08:45 Foot - Right Wound Culture - Final 10/13/23 20:48 Blood Blood Culture - Final 10/13/23 20:37 Blood Blood Culture - Final 10/16/23 16:30 Urine,Catheterized Urine Culture - Final 10/15/23 03:45 Urine,Clean Catch Urine Culture - Final Laboratory WBC 7.0 X10^3/uL (3.6-10.0) 10/26/23 04:13 RBC 2.90 X10^6/uL (4.7-6.0) L 10/26/23 04:13 Hgb 8.7 g/dL (13.5-18.0) L 10/26/23 04:13 Hct 26.1 % (42.0-54.0) L 10/26/23 04:13 MCV 90.0 fL (80.0-100.0) 10/26/23 04:13 MCH 29.9 pg (27.0-34.0) 10/26/23 04:13 MCHC 33.2 g/dL (33.0-35.0) 10/26/23 04:13 RDW 15.7 % (11.6-16.5) 10/26/23 04:13 Plt Count 270 X10^3/uL (150.0-450.0) 10/26/23 04:13 Plt Count Comment Adequate (ADEQUATE) 10/22/23 05:35 MPV 8.3 fL (7.4-11.0) 10/26/23 04:13 Neut % (Auto) 76.9 % (42.0-75.0) H 10/26/23 04:13 Lymph % (Auto) 14.1 % (21.0-51.0) L 10/26/23 04:13 Morton % (Auto) 7.4 % (0.0-13.0) 10/26/23 04:13 Eos % (Auto) 0.6 % (0.9-2.9) L 10/26/23 04:13 Baso % (Auto) 1.0 % (0.2-1.0) 10/26/23 04:13 Neut # (Auto) 5.4 x10^3/uL (2.2-4.8) H 10/26/23 04:13 Lymph # (Auto) 1.0 X10^3/uL (1.3-2.9) L 10/26/23 04:13 Morton # (Auto) 0.5 x10^3/uL (0.3-0.8) 10/26/23 04:13 Eos # (Auto) 0.0 x10^3/uL (0.0-0.2) 10/26/23 04:13 Baso # (Auto) 0.1 X10^3/uL (0.0-0.1) 10/26/23 04:13 Absolute Nucleated RBC 0.2 /100WBC 10/26/23 04:13 Total Counted 100 10/22/23 05:35 Neutrophils % (Manual) 79 % (39-76) H 10/22/23 05:35 Band Neutrophils % 0 % (0-10) 10/22/23 05:35 Lymphocytes % (Manual) 13 % (13-43) 10/22/23 05:35 Monocytes % (Manual) 7 % (4-9) 10/22/23 05:35 Eosinophils % (Manual) 1 % (0-6) 10/22/23 05:35 Basophils % (Manual) 0 % (0-1) 10/22/23 05:35 Metamyelocytes % Cancelled 10/14/23 04:26 Myelocytes % Cancelled 10/14/23 04:26 Promyelocytes % Cancelled 10/14/23 04:26 Nucleated RBCs 1 10/19/23 04:49 Atypical Lymphocytes Cancelled 10/14/23 04:26 Blast Cells Cancelled 10/14/23 04:26 Smudge Cells Cancelled 10/14/23 04:26 Toxic Granulation Cancelled 10/14/23 04:26 Dohle Bodies Cancelled 10/14/23 04:26 Binu Rods Cancelled 10/14/23 04:26 Plt Clumps, EDTA Cancelled 10/14/23 04:26 Giant Platelets Cancelled 10/14/23 04:26 Plt Morphology Comment Normal (NORMAL) 10/22/23 05:35 RBC Morphology Normal (NORMAL) 10/22/23 05:35 Dimorphic RBCs Cancelled 10/14/23 04:26 Polychromasia Cancelled 10/14/23 04:26 Hypochromasia Cancelled 10/14/23 04:26 Poikilocytosis Cancelled 10/14/23 04:26 Basophilic Stippling Cancelled 10/14/23 04:26 Anisocytosis Cancelled 10/14/23 04:26 Microcytosis Cancelled 10/14/23 04:26 Macrocytosis Cancelled 10/14/23 04:26 Spherocytes Cancelled 10/14/23 04:26 Pappenheimer Bodies Cancelled 10/14/23 04:26 Sickle Cells Cancelled 10/14/23 04:26 Target Cells Present 10/17/23 06:05 Tear Drop Cells Cancelled 10/14/23 04:26 Ovalocytes Cancelled 10/14/23 04:26 Stomatocytes Cancelled 10/14/23 04:26 Helmet Cells Cancelled 10/14/23 04:26 Lujan-Kismet Bodies Cancelled 10/14/23 04:26 Gooding Rings Cancelled 10/14/23 04:26 Mona Cells Cancelled 10/14/23 04:26 Crenated Cell Cancelled 10/14/23 04:26 Acanthocytes (Spur) Cancelled 10/14/23 04:26 Rouleaux Cancelled 10/14/23 04:26 Schistocytes Cancelled 10/14/23 04:26 Absolute Retic 0.0773 10^6/uL 10/14/23 09:30 Percent Retic 2.28 % (0.8-2.2) H 10/14/23 09:30 PT 16.7 SECONDS (11.8-14.3) 10/16/23 16:04 INR Target Range - 10/16/23 16:04 INR 1.39 (0.8-1.3) H 10/16/23 16:04 APTT 36.1 SECONDS (22.9-36.5) 10/21/23 19:10 PTT Comment - 10/21/23 19:10 Fibrinogen 563 mg/dL (239-489) H 10/21/23 19:10 Factor XII Activity 90 10/13/23 16:14 Sample Site Rrad 10/16/23 16:03 ABG pH 7.570 (7.35-7.45) H* 10/16/23 16:03 ABG pCO2 36.0 mmHg (35.0-45.0) 10/16/23 16:03 ABG pO2 61.0 mmHg (80.0-100.0) L 10/16/23 16:03 ABG HCO3 33.0 mmol/L (22-26) H* 10/16/23 16:03 ABG O2 Saturation 94.0 % (90-100) 10/16/23 16:03 ABG Base Excess 10.3 mmol/L (-2.0-2.0) H 10/16/23 16:03 Ronnie Test Pos 10/16/23 16:03 A-a Gradient 122.0 mmHg 10/16/23 16:03 FiO2 32.0 10/16/23 16:03 Blood Gas Comments Pt holly well elj cdn 10/16/23 16:03 Sodium 138 mmol/L (136-145) 10/26/23 04:13 Corrected Sodium 139 mmol/L (136-145) 10/26/23 04:13 Potassium 3.8 mmol/L (3.5-5.1) 10/26/23 04:13 Chloride 101 mmol/L (98-107) 10/26/23 04:13 Carbon Dioxide 31.8 mmol/L (21-32) 10/26/23 04:13 BUN 14 mg/dL (7-18) 10/26/23 04:13 Creatinine 1.37 mg/dL (0.70-1.30) H 10/26/23 04:13 Est GFR (MDRD) Af Amer > 60 (>60) 10/26/23 04:13 Est GFR (MDRD) Non-Af 55 (>60) L 10/26/23 04:13 Glucose 145 mg/dL (65-99) H 10/26/23 04:13 POC Glucose (mg/dL) 187 mg/dL (65-99) H 10/26/23 05:05 Hemoglobin A1c 7.5 % 10/13/23 13:30 Lactic Acid 1.6 mmol/L (0.4-2.0) 10/22/23 15:15 Calcium 8.2 mg/dL (8.5-10.1) L 10/26/23 04:13 Corrected Calcium 10.0 mg/dL (8.5-10.1) 10/26/23 04:13 Magnesium 2.4 mg/dL (2.0-2.9) 10/22/23 05:35 Iron 14 ug/dL (50-175) L 10/14/23 09:30 TIBC 175 ug/dL (250-450) L 10/14/23 09:30 Transferrin 140 mg/dL (202-364) L 10/14/23 09:30 Ferritin 853 ng/mL (26-388) H 10/14/23 09:30 Total Bilirubin 0.70 mg/dL (0.2-1.0) 10/26/23 04:13 AST 32 Units/L (15-37) 10/26/23 04:13 ALT 23 Units/L (12-78) 10/26/23 04:13 Alkaline Phosphatase 118 Units/L (46-116) H 10/26/23 04:13 Ammonia < 10 umol/L (11-32) L 10/16/23 16:04 Troponin I High Sens 59.6 ng/L (4.0-60.0) 10/13/23 17:13 B-Natriuretic Peptide 874 pg/mL (0-79) H 10/16/23 01:30 Total Protein 6.5 g/dL (6.4-8.2) 10/26/23 04:13 Albumin 1.7 g/dL (3.4-5.0) L 10/26/23 04:13 Globulin 4.8 g/dL (2.5-4.5) H 10/26/23 04:13 Albumin/Globulin Ratio 0.4 Ratio (1.1-2.1) L 10/26/23 04:13 Vitamin B12 370 pg/mL (193-986) 10/14/23 09:30 Folate 8.6 ng/mL (>8.6) 10/14/23 09:30 Specimen Type Catherized urine 10/16/23 16:30 Urine Color Dark yellow (YELLOW) 10/16/23 16:30 Urine Appearance Clear (CLEAR) 10/16/23 16:30 Urine pH 6.0 (5.0 - 8.0) 10/16/23 16:30 Ur Specific [place] 1.020 (1.000-1.030) 10/16/23 16:30 Urine Protein 3+ (NEGATIVE) 10/16/23 16:30 Urine Glucose (UA) Negative (NEGATIVE) 10/16/23 16:30 Urine Ketones Negative (NEGATIVE) 10/16/23 16:30 Urine Blood 3+ (NEGATIVE) 10/16/23 16:30 Urine Nitrite Negative (NEGATIVE) 10/16/23 16:30 Urine Bilirubin 1+ (NEGATIVE) 10/16/23 16:30 Urine Urobilinogen 2+ (NORMAL) 10/16/23 16:30 Ur Leukocyte Esterase 1+ (NEGATIVE) 10/16/23 16:30 Urine RBC 3-5 /HPF (0-3) A 10/16/23 16:30 Urine WBC 3-5 /HPF (0-5) 10/16/23 16:30 Ur Squamous Epith Cells Rare /HPF (NEGATIVE) 10/16/23 16:30 Ur Transition Epith Cell Rare /HPF (NEGATIVE) 10/13/23 20:08 Amorphous Sediment Trace /HPF (NEGATIVE) 10/16/23 16:30 Urine Bacteria Trace /HPF (NEGATIVE) 10/16/23 16:30 Hyaline Casts Numerous /LPF (NEGATIVE) 10/13/23 20:08 Urine Mucus Few /HPF (NEGATIVE) 10/16/23 16:30 Ur Culture Indicated? Yes/culture set up 10/16/23 16:30 Digoxin 0.43 ng/mL (0.9-2) L 10/24/23 04:31 Urine Opiates Screen Negative (NEG=<300) 10/13/23 20:08 Urine Methadone Screen Negative (NEG=<300) 10/13/23 20:08 Ur Barbiturates Screen Negative (NEG=<200) 10/13/23 20:08 Ur Phencyclidine Scrn Negative (NEG=<25) 10/13/23 20:08 Ur Amphetamines Screen Negative (NEG=<1000) 10/13/23 20:08 U Benzodiazepines Scrn Negative (NEG=<200) 10/13/23 20:08 Urine Cocaine Screen Positive (NEG=<300) 10/13/23 20:08 U Marijuana (THC) Screen Negative (NEG=<50) 10/13/23 20:08 Infect Dis PCR Plus see scanned report 10/15/23 03:45 Blood Type O POSITIVE 10/21/23 19:50 Antibody Screen Negative 10/21/23 19:50 Crossmatch See Detail 10/21/23 19:50 Plan (1) Ischemic leg: Status: Acute Plan: Treatment per vascular surgery. The patient is medically cleared to be discharged home today when okay with vascular surgery. (2) Wound of right foot: Status: Acute Plan: The patient's wound will be covered with gentamicin cream twice daily at discharge today until new skin regrows. There is no current evidence of infection. (3) Atrial fibrillation: Status: Chronic Qualifiers: Atrial fibrillation type: unspecified chronic Qualified Code(s): I48.20 - Chronic atrial fibrillation, unspecified Plan: Continue digoxin 0.25 mg p.o. daily along with Cardizem CD 180 mg 1 p.o. daily. The patient is anticoagulated with Eliquis 5 mg twice daily. He will continue this at discharge home today. (4) Type 2 diabetes mellitus: Status: Chronic Qualifiers: Diabetes mellitus fdc insulin use: without fdc use Plan: The patient will be prescribed glipizidemetformin 2.5-2050 mg 1 p.o. daily at discharge. (5) Essential (primary) hypertension: Status: Chronic Plan: patient was hypotensive on admission. we will restart his medications when appropriate (6) Hypotension: Status: Resolved Plan: Hold oral hypertensive at this time today. Continue to monitor blood pressure today. We will give him his Cardizem and digoxin for rate control secondary to his atrial fibrillation. (7) Anemia: Status: Acute Plan: Transfused 2 units packed red blood cells today. Premedicate with Tylenol and Benadryl this evening. If needed we will give him Lasix between the first and second unit of blood this evening. (8) Leukocytosis: Status: Resolved Plan: IV antibiotics , but most likely elevation of WBC due to ischemic right foot. Continue IV Zyvox. (9) Dehydration: Status: Resolved Plan: bolus of fluids (10) Hyperlipidemia: Status: Chronic Plan: Continue simvastatin 10 mg at at bedtime. (11) Cocaine abuse: Status: Resolved Plan: will need to observe for withdrawal and treat accordingly. (12) Urinary tract infection: Status: Resolved Qualifiers: Hematuria presence: with hematuria Urinary tract infection type: acute cystitis Qualified Code(s): N30.01 - Acute cystitis with hematuria Plan: The patient is currently on Maxipime. We will follow up with the urine culture and sensitivity results when available. Check we will change antibiotics if needed
--- NOTE | 2023-10-26 13:23 | W.DIS.FURT ---
Summary of Discharge Discharge Summary of Date Date of Exam: 10/26/23 Admission Date Date of Admission: 10/14/23 Admission Diagnosis Hospital Course: This is a 68 year old male who had been seen by me recently for significant bilateral lower extremity ischemia . In late July of this year he underwent stenting of the right common and external iliac arteries as well as stenting of the right superficial femoral artery. Several weeks later he underwent atherectomy and Drug coated balloon angioplasty of the left SFA and he was seen in follow-up once and was doing well and we ordered follow-up dopplers which were done several weeks ago showing complete occlusion with severe ischemia of the right leg. We tried to get in touch with him but he didn't return phone calls for over 2 weeks. Apparently he had been at home doing signif icant amount of cocaine and when he did follow up he had a severely ischemic right leg. He was admitted on October 13 and was taken to the operating Suite where we attempted to place a catheter across the right iliac from the right ankle and from the left iliac artery side but all were unsuccessful. We could get the wire started down the right common iliac artery but could not get enough support to pass the catheter beyond the occlusion. He was taken back to the CCU and maintained on anticoagulation with therapeutic Lovenox but unfortunately went into significant cocaine withdrawal which had to be treated. This took several days to resolve and he was taken back to the operating Suite on October 18 where he under went placement of a thrombolytic catheter via the left brachial artery all the way down the right leg. He had 24 hours of thrombolysis and still had some evidence of withdrawal symptoms. He was taken back to the operating Suite on the 20 of October and repeat arteriogram showed resolution of almost all of the thrombus with evidence of significant stenosis of the [place] right external iliac artery. This was stented and the rest of the previous placed stents were balloon dilated and he had good doppler signals at the right ankle. Post procedure his withdrawal symptoms have resolved but he has dark discoloration of all the toes of the right foot. We are watching that to wait for them to demarcate. He was supposed to be sent to a Intermediate Facility but he was refused that. He signed out against medical advice today and hopefully I will see him in follow up in 1 week to determine whether he needs a transmetatarsal amputation versus a right below knee amputation. He will be on his usual medications to include Percocet 5 milligram tablets 1 every 6 hours PRN pain plus Xarelto 2.5 milligrams BID by mouth and aspirin 81 milligrams daily in addition to his .home medications. Hopefully he will follow up with me in 1 week . He is to be followed by Home Health. Vital Signs: Vital Signs (72 hours) 10/24/23 18:27 10/25/23 22:12 10/24/23 18:17 Temperature 100.0 F H 99.0 F 100.0 F H Pulse Rate 81 67 64 Respiratory Rate 18 22 24 Blood Pressure 120/60 119/63 128/62 O2 Sat by Pulse Oximetry 96 99 94 L Oxygen Delivery Method Oxygen Flow Rate FIO2% 10/23/23 13:31 10/23/23 12:00 10/23/23 13:00 Temperature 98.0 F Pulse Rate 77 68 68 Respiratory Rate 24 22 Blood Pressure 116/56 125/60 O2 Sat by Pulse Oximetry 96 91 L 90 L Oxygen Delivery Method Oxygen Flow Rate FIO2% 10/23/23 14:00 10/23/23 15:00 10/23/23 16:00 Temperature 97.8 F Pulse Rate 69 65 80 Respiratory Rate 29 H 16 23 Blood Pressure 107/52 117/57 138/64 O2 Sat by Pulse Oximetry 92 L 91 L 92 L Oxygen Delivery Method Oxygen Flow Rate FIO2% 10/23/23 17:10 10/23/23 17:00 10/23/23 18:00 Temperature Pulse Rate 86 76 78 Respiratory Rate 18 22 Blood Pressure 133/66 117/63 O2 Sat by Pulse Oximetry 95 98 Oxygen Delivery Method Oxygen Flow Rate FIO2% 10/23/23 19:00 10/23/23 20:20 10/23/23 20:31 Temperature 100.0 F H Pulse Rate 64 Respiratory Rate 24 18 Blood Pressure 128/62 O2 Sat by Pulse Oximetry 94 L Oxygen Delivery Method Nasal Cannula Oxygen Flow Rate 2 FIO2% 28 10/23/23 20:31 10/23/23 19:00 10/23/23 20:00 Temperature Pulse Rate 64 68 Respiratory Rate 22 Blood Pressure 145/65 O2 Sat by Pulse Oximetry 97 99 Oxygen Delivery Method Room Air Oxygen Flow Rate FIO2% 10/23/23 21:00 10/23/23 22:00 10/23/23 21:20 Temperature Pulse Rate 83 89 Respiratory Rate 26 H 24 18 Blood Pressure 116/60 118/80 O2 Sat by Pulse Oximetry 98 100 Oxygen Delivery Method Oxygen Flow Rate FIO2% 10/23/23 23:00 10/24/23 00:00 10/24/23 01:00 Temperature 98.6 F Pulse Rate 88 84 74 Respiratory Rate 17 20 20 Blood Pressure 122/58 95/53 95/52 O2 Sat by Pulse Oximetry 95 98 98 Oxygen Delivery Method Oxygen Flow Rate FIO2% 10/24/23 02:00 10/24/23 02:28 10/24/23 03:00 Temperature Pulse Rate 70 61 Respiratory Rate 24 18 18 Blood Pressure 109/53 105/53 O2 Sat by Pulse Oximetry 95 96 Oxygen Delivery Method Oxygen Flow Rate FIO2% 10/24/23 04:00 10/24/23 03:28 10/24/23 05:00 Temperature 98.2 F Pulse Rate 68 66 Respiratory Rate 20 18 16 Blood Pressure 105/53 102/46 O2 Sat by Pulse Oximetry 95 100 Oxygen Delivery Method Oxygen Flow Rate FIO2% 10/24/23 06:00 10/24/23 07:00 10/24/23 07:00 Temperature 98.9 F Pulse Rate 60 65 Respiratory Rate 20 20 Blood Pressure 99/51 114/58 O2 Sat by Pulse Oximetry 97 97 Oxygen Delivery Method Room Air Nasal Cannula Oxygen Flow Rate 2 FIO2% 10/24/23 08:00 10/24/23 09:06 10/24/23 09:07 Temperature Pulse Rate 74 72 Respiratory Rate 20 Blood Pressure 113/58 O2 Sat by Pulse Oximetry 97 100 Oxygen Delivery Method Nasal Cannula Nasal Cannula Oxygen Flow Rate 2 2 FIO2% 10/24/23 09:24 10/24/23 09:00 10/24/23 10:00 Temperature Pulse Rate 65 66 68 Respiratory Rate 18 16 Blood Pressure 103/58 101/57 O2 Sat by Pulse Oximetry 100 98 Oxygen Delivery Method Nasal Cannula Nasal Cannula Oxygen Flow Rate 2 2 FIO2% 10/24/23 11:00 10/24/23 12:00 10/24/23 13:00 Temperature 98.6 F Pulse Rate 69 63 66 Respiratory Rate 18 16 18 Blood Pressure 121/58 115/71 119/70 O2 Sat by Pulse Oximetry 97 96 97 Oxygen Delivery Method Nasal Cannula Nasal Cannula Nasal Cannula Oxygen Flow Rate 2 2 2 FIO2% 10/24/23 14:00 10/24/23 15:00 10/24/23 16:00 Temperature 98.4 F Pulse Rate 86 75 63 Respiratory Rate 20 16 18 Blood Pressure 115/58 114/62 140/64 O2 Sat by Pulse Oximetry 98 97 96 Oxygen Delivery Method Nasal Cannula Nasal Cannula Nasal Cannula Oxygen Flow Rate 2 2 2 FIO2% 10/24/23 17:06 10/24/23 17:00 10/24/23 18:00 Temperature Pulse Rate 63 67 81 Respiratory Rate 16 18 Blood Pressure 101/55 120/60 O2 Sat by Pulse Oximetry 96 97 96 Oxygen Delivery Method Nasal Cannula Nasal Cannula Oxygen Flow Rate 2 2 FIO2% 10/24/23 19:00 10/24/23 20:00 10/24/23 20:18 Temperature 99.0 F Pulse Rate 65 74 Respiratory Rate 22 22 22 Blood Pressure 116/91 113/69 O2 Sat by Pulse Oximetry 97 98 Oxygen Delivery Method Nasal Cannula Nasal Cannula Oxygen Flow Rate 2 2 FIO2% 10/24/23 20:00 10/24/23 20:00 10/24/23 21:00 Temperature Pulse Rate 76 74 Respiratory Rate 14 Blood Pressure 127/80 O2 Sat by Pulse Oximetry 95 96 Oxygen Delivery Method Nasal Cannula Nasal Cannula Oxygen Flow Rate 2 2 FIO2% 28 10/24/23 19:00 10/24/23 21:18 10/24/23 22:00 Temperature Pulse Rate 86 Respiratory Rate 22 24 Blood Pressure 128/82 O2 Sat by Pulse Oximetry 95 Oxygen Delivery Method Room Air Nasal Cannula Oxygen Flow Rate 2 FIO2% 10/24/23 23:00 10/25/23 00:01 10/25/23 00:00 Temperature Pulse Rate 75 78 Respiratory Rate 22 18 Blood Pressure 116/57 115/78 O2 Sat by Pulse Oximetry 95 97 Oxygen Delivery Method Nasal Cannula Nasal Cannula Nasal Cannula Oxygen Flow Rate 2 2 2 FIO2% 28 10/25/23 01:00 10/25/23 02:00 10/25/23 03:00 Temperature 98.4 F Pulse Rate 73 67 64 Respiratory Rate 20 17 18 Blood Pressure 133/75 145/91 121/55 O2 Sat by Pulse Oximetry 95 95 95 Oxygen Delivery Method Nasal Cannula Nasal Cannula Nasal Cannula Oxygen Flow Rate 2 2 2 FIO2% 10/25/23 04:05 10/25/23 04:00 10/25/23 05:00 Temperature 98.2 F Pulse Rate 66 68 Respiratory Rate 18 24 22 Blood Pressure 121/67 130/61 O2 Sat by Pulse Oximetry 95 96 Oxygen Delivery Method Nasal Cannula Oxygen Flow Rate 2 FIO2% 10/25/23 05:05 10/25/23 06:00 10/25/23 08:53 Temperature Pulse Rate 68 Respiratory Rate 18 26 H Blood Pressure 119/66 O2 Sat by Pulse Oximetry 93 L Oxygen Delivery Method Nasal Cannula Room Air Oxygen Flow Rate 2 2 FIO2% 28 10/25/23 08:53 10/25/23 07:00 10/24/23 16:00 Temperature Pulse Rate 74 69 Respiratory Rate 31 H Blood Pressure O2 Sat by Pulse Oximetry 95 Oxygen Delivery Method Room Air Oxygen Flow Rate FIO2% 10/24/23 16:00 10/24/23 17:00 10/24/23 17:00 Temperature Pulse Rate 67 Respiratory Rate 26 H Blood Pressure 140/64 101/55 O2 Sat by Pulse Oximetry Oxygen Delivery Method Oxygen Flow Rate FIO2% 10/24/23 17:00 10/24/23 17:00 10/24/23 18:00 Temperature Pulse Rate 76 Respiratory Rate 21 Blood Pressure 101/55 101/55 O2 Sat by Pulse Oximetry Oxygen Delivery Method Oxygen Flow Rate FIO2% 10/24/23 18:00 10/24/23 18:00 10/24/23 18:00 Temperature Pulse Rate 76 Respiratory Rate 21 Blood Pressure 120/60 120/60 O2 Sat by Pulse Oximetry Oxygen Delivery Method Oxygen Flow Rate FIO2% 10/24/23 19:00 10/24/23 19:04 10/24/23 19:04 Temperature Pulse Rate 87 84 Respiratory Rate 41 H 27 H Blood Pressure 116/61 O2 Sat by Pulse Oximetry 91 L 89 L Oxygen Delivery Method Oxygen Flow Rate FIO2% 10/24/23 20:00 10/24/23 20:07 10/24/23 20:07 Temperature Pulse Rate 80 75 Respiratory Rate 23 33 H Blood Pressure 113/69 O2 Sat by Pulse Oximetry 97 95 Oxygen Delivery Method Oxygen Flow Rate FIO2% 10/24/23 21:00 10/24/23 21:00 10/24/23 22:00 Temperature Pulse Rate 79 Respiratory Rate 29 H Blood Pressure 127/80 128/82 O2 Sat by Pulse Oximetry 92 L Oxygen Delivery Method Oxygen Flow Rate FIO2% 10/24/23 22:00 10/24/23 23:00 10/24/23 23:03 Temperature Pulse Rate 90 73 Respiratory Rate 24 23 Blood Pressure 116/57 O2 Sat by Pulse Oximetry 94 L 87 L Oxygen Delivery Method Oxygen Flow Rate FIO2% 10/24/23 23:03 10/25/23 00:00 10/25/23 00:00 Temperature Pulse Rate 91 H 88 Respiratory Rate 25 H 34 H Blood Pressure 115/78 O2 Sat by Pulse Oximetry 92 L Oxygen Delivery Method Oxygen Flow Rate FIO2% 10/25/23 01:00 10/25/23 01:00 10/25/23 01:00 Temperature Pulse Rate 74 Respiratory Rate 23 Blood Pressure 133/75 133/75 O2 Sat by Pulse Oximetry Oxygen Delivery Method Oxygen Flow Rate FIO2% 10/25/23 02:00 10/25/23 02:00 10/25/23 02:00 Temperature Pulse Rate 68 Respiratory Rate 31 H Blood Pressure 145/91 145/91 O2 Sat by Pulse Oximetry 89 L Oxygen Delivery Method Oxygen Flow Rate FIO2% 10/25/23 03:00 10/25/23 03:01 10/25/23 03:01 Temperature Pulse Rate 64 65 Respiratory Rate 23 22 Blood Pressure 121/55 O2 Sat by Pulse Oximetry 85 L 93 L Oxygen Delivery Method Oxygen Flow Rate FIO2% 10/25/23 04:00 10/25/23 04:00 10/25/23 04:00 Temperature Pulse Rate 64 Respiratory Rate 29 H Blood Pressure 129/67 129/67 O2 Sat by Pulse Oximetry 97 Oxygen Delivery Method Oxygen Flow Rate FIO2% 10/25/23 05:00 10/25/23 05:01 10/25/23 05:01 Temperature Pulse Rate 69 82 Respiratory Rate 26 H 23 Blood Pressure 130/64 O2 Sat by Pulse Oximetry 91 L 90 L Oxygen Delivery Method Oxygen Flow Rate FIO2% 10/25/23 05:01 10/25/23 06:00 10/25/23 06:00 Temperature Pulse Rate 79 Respiratory Rate 22 Blood Pressure 130/64 119/66 O2 Sat by Pulse Oximetry 92 L Oxygen Delivery Method Oxygen Flow Rate FIO2% 10/25/23 07:00 10/25/23 08:03 10/25/23 08:05 Temperature Pulse Rate 64 86 Respiratory Rate 22 Blood Pressure 95/64 O2 Sat by Pulse Oximetry 92 L Oxygen Delivery Method Oxygen Flow Rate FIO2% 10/25/23 08:05 10/25/23 09:00 10/25/23 09:00 Temperature 98.4 F Pulse Rate 77 69 Respiratory Rate 24 20 Blood Pressure 108/56 O2 Sat by Pulse Oximetry 100 Oxygen Delivery Method Oxygen Flow Rate FIO2% 10/25/23 10:02 10/25/23 11:00 10/25/23 12:00 Temperature 98.2 F Pulse Rate 76 72 72 Respiratory Rate 22 22 22 Blood Pressure 108/56 107/67 107/67 O2 Sat by Pulse Oximetry 100 100 100 Oxygen Delivery Method Oxygen Flow Rate FIO2% 10/25/23 13:00 10/25/23 11:00 10/25/23 11:28 Temperature Pulse Rate 74 98 H Respiratory Rate 24 32 H Blood Pressure 114/63 107/67 O2 Sat by Pulse Oximetry 100 Oxygen Delivery Method Oxygen Flow Rate FIO2% 10/25/23 11:28 10/25/23 11:28 10/25/23 12:00 Temperature Pulse Rate 72 67 Respiratory Rate 22 27 H Blood Pressure 107/67 O2 Sat by Pulse Oximetry Oxygen Delivery Method Oxygen Flow Rate FIO2% 10/25/23 13:00 10/25/23 13:24 10/25/23 13:24 Temperature Pulse Rate 69 62 Respiratory Rate 19 24 Blood Pressure 114/63 O2 Sat by Pulse Oximetry 100 Oxygen Delivery Method Oxygen Flow Rate FIO2% 10/25/23 14:00 10/25/23 15:00 10/25/23 16:00 Temperature 98.4 F Pulse Rate 73 73 71 Respiratory Rate 25 H 25 H 22 Blood Pressure 123/70 123/70 135/67 O2 Sat by Pulse Oximetry 96 96 96 Oxygen Delivery Method Oxygen Flow Rate FIO2% 10/25/23 17:00 10/25/23 18:00 10/25/23 19:00 Temperature Pulse Rate 72 72 69 Respiratory Rate 26 H 26 H 24 Blood Pressure 115/63 115/63 107/58 O2 Sat by Pulse Oximetry 96 96 95 Oxygen Delivery Method Oxygen Flow Rate FIO2% 10/25/23 19:00 10/25/23 20:09 10/25/23 20:00 Temperature 99.0 F Pulse Rate 67 Respiratory Rate 18 22 Blood Pressure 119/63 O2 Sat by Pulse Oximetry 99 Oxygen Delivery Method Room Air Oxygen Flow Rate FIO2% 10/25/23 21:00 10/25/23 21:09 10/25/23 22:00 Temperature Pulse Rate 69 79 Respiratory Rate 20 18 24 Blood Pressure 117/61 97/65 O2 Sat by Pulse Oximetry 97 96 Oxygen Delivery Method Oxygen Flow Rate FIO2% 10/25/23 23:00 10/26/23 00:00 10/26/23 01:00 Temperature 98.6 F Pulse Rate 84 68 69 Respiratory Rate 26 H 24 20 Blood Pressure 109/77 130/71 106/59 O2 Sat by Pulse Oximetry 96 96 96 Oxygen Delivery Method Oxygen Flow Rate FIO2% 10/26/23 02:00 10/26/23 03:00 10/26/23 04:00 Temperature Pulse Rate 70 76 77 Respiratory Rate 18 20 24 Blood Pressure 109/55 120/76 113/53 O2 Sat by Pulse Oximetry 95 95 96 Oxygen Delivery Method Oxygen Flow Rate FIO2% 10/26/23 05:00 10/26/23 06:00 10/26/23 07:00 Temperature 98.5 F Pulse Rate 82 94 H Respiratory Rate 18 16 Blood Pressure 117/62 120/78 O2 Sat by Pulse Oximetry 95 94 L Oxygen Delivery Method Room Air Oxygen Flow Rate FIO2% 10/26/23 09:45 Temperature Pulse Rate Respiratory Rate Blood Pressure O2 Sat by Pulse Oximetry Oxygen Delivery Method Room Air Oxygen Flow Rate FIO2% Labs: Laboratory Last Values WBC 7.0 X10^3/uL (3.6-10.0) 10/26/23 04:13 RBC 2.90 X10^6/uL (4.7-6.0) L 10/26/23 04:13 Hgb 8.7 g/dL (13.5-18.0) L 10/26/23 04:13 Hct 26.1 % (42.0-54.0) L 10/26/23 04:13 MCV 90.0 fL (80.0-100.0) 10/26/23 04:13 MCH 29.9 pg (27.0-34.0) 10/26/23 04:13 MCHC 33.2 g/dL (33.0-35.0) 10/26/23 04:13 RDW 15.7 % (11.6-16.5) 10/26/23 04:13 Plt Count 270 X10^3/uL (150.0-450.0) 10/26/23 04:13 Plt Count Comment Adequate (ADEQUATE) 10/22/23 05:35 MPV 8.3 fL (7.4-11.0) 10/26/23 04:13 Neut % (Auto) 76.9 % (42.0-75.0) H 10/26/23 04:13 Lymph % (Auto) 14.1 % (21.0-51.0) L 10/26/23 04:13 Kerr % (Auto) 7.4 % (0.0-13.0) 10/26/23 04:13 Eos % (Auto) 0.6 % (0.9-2.9) L 10/26/23 04:13 Baso % (Auto) 1.0 % (0.2-1.0) 10/26/23 04:13 Neut # (Auto) 5.4 x10^3/uL (2.2-4.8) H 10/26/23 04:13 Lymph # (Auto) 1.0 X10^3/uL (1.3-2.9) L 10/26/23 04:13 Kerr # (Auto) 0.5 x10^3/uL (0.3-0.8) 10/26/23 04:13 Eos # (Auto) 0.0 x10^3/uL (0.0-0.2) 10/26/23 04:13 Baso # (Auto) 0.1 X10^3/uL (0.0-0.1) 10/26/23 04:13 Absolute Nucleated RBC 0.2 /100WBC 10/26/23 04:13 Total Counted 100 10/22/23 05:35 Neutrophils % (Manual) 79 % (39-76) H 10/22/23 05:35 Band Neutrophils % 0 % (0-10) 10/22/23 05:35 Lymphocytes % (Manual) 13 % (13-43) 10/22/23 05:35 Monocytes % (Manual) 7 % (4-9) 10/22/23 05:35 Eosinophils % (Manual) 1 % (0-6) 10/22/23 05:35 Basophils % (Manual) 0 % (0-1) 10/22/23 05:35 Metamyelocytes % Cancelled 10/14/23 04:26 Myelocytes % Cancelled 10/14/23 04:26 Promyelocytes % Cancelled 10/14/23 04:26 Nucleated RBCs 1 10/19/23 04:49 Atypical Lymphocytes Cancelled 10/14/23 04:26 Blast Cells Cancelled 10/14/23 04:26 Smudge Cells Cancelled 10/14/23 04:26 Toxic Granulation Cancelled 10/14/23 04:26 Dohle Bodies Cancelled 10/14/23 04:26 Binu Rods Cancelled 10/14/23 04:26 Plt Clumps, EDTA Cancelled 10/14/23 04:26 Giant Platelets Cancelled 10/14/23 04:26 Plt Morphology Comment Normal (NORMAL) 10/22/23 05:35 RBC Morphology Normal (NORMAL) 10/22/23 05:35 Dimorphic RBCs Cancelled 10/14/23 04:26 Polychromasia Cancelled 10/14/23 04:26 Hypochromasia Cancelled 10/14/23 04:26 Poikilocytosis Cancelled 10/14/23 04:26 Basophilic Stippling Cancelled 10/14/23 04:26 Anisocytosis Cancelled 10/14/23 04:26 Microcytosis Cancelled 10/14/23 04:26 Macrocytosis Cancelled 10/14/23 04:26 Spherocytes Cancelled 10/14/23 04:26 Pappenheimer Bodies Cancelled 10/14/23 04:26 Sickle Cells Cancelled 10/14/23 04:26 Target Cells Present 10/17/23 06:05 Tear Drop Cells Cancelled 10/14/23 04:26 Ovalocytes Cancelled 10/14/23 04:26 Stomatocytes Cancelled 10/14/23 04:26 Helmet Cells Cancelled 10/14/23 04:26 [place] Bodies Cancelled 10/14/23 04:26 [place] Rings Cancelled 10/14/23 04:26 Mona Cells Cancelled 10/14/23 04:26 Crenated Cell Cancelled 10/14/23 04:26 Acanthocytes (Spur) Cancelled 10/14/23 04:26 Rouleaux Cancelled 10/14/23 04:26 Schistocytes Cancelled 10/14/23 04:26 Absolute Retic 0.0773 10^6/uL 10/14/23 09:30 Percent Retic 2.28 % (0.8-2.2) H 10/14/23 09:30 PT 16.7 SECONDS (11.8-14.3) 10/16/23 16:04 INR Target Range - 10/16/23 16:04 INR 1.39 (0.8-1.3) H 10/16/23 16:04 APTT 36.1 SECONDS (22.9-36.5) 10/21/23 19:10 PTT Comment - 10/21/23 19:10 Fibrinogen 563 mg/dL (239-489) H 10/21/23 19:10 Factor XII Activity 90 10/13/23 16:14 Sample Site Rrad 10/16/23 16:03 ABG pH 7.570 (7.35-7.45) H* 10/16/23 16:03 ABG pCO2 36.0 mmHg (35.0-45.0) 10/16/23 16:03 ABG pO2 61.0 mmHg (80.0-100.0) L 10/16/23 16:03 ABG HCO3 33.0 mmol/L (22-26) H* 10/16/23 16:03 ABG O2 Saturation 94.0 % (90-100) 10/16/23 16:03 ABG Base Excess 10.3 mmol/L (-2.0-2.0) H 10/16/23 16:03 Ronnie Test Pos 10/16/23 16:03 A-a Gradient 122.0 mmHg 10/16/23 16:03 FiO2 32.0 10/16/23 16:03 Blood Gas Comments Pt holly well elj cdn 10/16/23 16:03 Sodium 138 mmol/L (136-145) 10/26/23 04:13 Corrected Sodium 139 mmol/L (136-145) 10/26/23 04:13 Potassium 3.8 mmol/L (3.5-5.1) 10/26/23 04:13 Chloride 101 mmol/L (98-107) 10/26/23 04:13 Carbon Dioxide 31.8 mmol/L (21-32) 10/26/23 04:13 BUN 14 mg/dL (7-18) 10/26/23 04:13 Creatinine 1.37 mg/dL (0.70-1.30) H 10/26/23 04:13 Est GFR (MDRD) Af Amer > 60 (>60) 10/26/23 04:13 Est GFR (MDRD) Non-Af 55 (>60) L 10/26/23 04:13 Glucose 145 mg/dL (65-99) H 10/26/23 04:13 POC Glucose (mg/dL) 187 mg/dL (65-99) H 10/26/23 05:05 Hemoglobin A1c 7.5 % 10/13/23 13:30 Lactic Acid 1.6 mmol/L (0.4-2.0) 10/22/23 15:15 Calcium 8.2 mg/dL (8.5-10.1) L 10/26/23 04:13 Corrected Calcium 10.0 mg/dL (8.5-10.1) 10/26/23 04:13 Magnesium 2.4 mg/dL (2.0-2.9) 10/22/23 05:35 Iron 14 ug/dL (50-175) L 10/14/23 09:30 TIBC 175 ug/dL (250-450) L 10/14/23 09:30 Transferrin 140 mg/dL (202-364) L 10/14/23 09:30 Ferritin 853 ng/mL (26-388) H 10/14/23 09:30 Total Bilirubin 0.70 mg/dL (0.2-1.0) 10/26/23 04:13 AST 32 Units/L (15-37) 10/26/23 04:13 ALT 23 Units/L (12-78) 10/26/23 04:13 Alkaline Phosphatase 118 Units/L (46-116) H 10/26/23 04:13 Ammonia < 10 umol/L (11-32) L 10/16/23 16:04 Troponin I High Sens 59.6 ng/L (4.0-60.0) 10/13/23 17:13 B-Natriuretic Peptide 874 pg/mL (0-79) H 10/16/23 01:30 Total Protein 6.5 g/dL (6.4-8.2) 10/26/23 04:13 Albumin 1.7 g/dL (3.4-5.0) L 10/26/23 04:13 Globulin 4.8 g/dL (2.5-4.5) H 10/26/23 04:13 Albumin/Globulin Ratio 0.4 Ratio (1.1-2.1) L 10/26/23 04:13 Vitamin B12 370 pg/mL (193-986) 10/14/23 09:30 Folate 8.6 ng/mL (>8.6) 10/14/23 09:30 Specimen Type Catherized urine 10/16/23 16:30 Urine Color Dark yellow (YELLOW) 10/16/23 16:30 Urine Appearance Clear (CLEAR) 10/16/23 16:30 Urine pH 6.0 (5.0 - 8.0) 10/16/23 16:30 Ur Specific [place] 1.020 (1.000-1.030) 10/16/23 16:30 Urine Protein 3+ (NEGATIVE) 10/16/23 16:30 Urine Glucose (UA) Negative (NEGATIVE) 10/16/23 16:30 Urine Ketones Negative (NEGATIVE) 10/16/23 16:30 Urine Blood 3+ (NEGATIVE) 10/16/23 16:30 Urine Nitrite Negative (NEGATIVE) 10/16/23 16:30 Urine Bilirubin 1+ (NEGATIVE) 10/16/23 16:30 Urine Urobilinogen 2+ (NORMAL) 10/16/23 16:30 Ur Leukocyte Esterase 1+ (NEGATIVE) 10/16/23 16:30 Urine RBC 3-5 /HPF (0-3) A 10/16/23 16:30 Urine WBC 3-5 /HPF (0-5) 10/16/23 16:30 Ur Squamous Epith Cells Rare /HPF (NEGATIVE) 10/16/23 16:30 Ur Transition Epith Cell Rare /HPF (NEGATIVE) 10/13/23 20:08 Amorphous Sediment Trace /HPF (NEGATIVE) 10/16/23 16:30 Urine Bacteria Trace /HPF (NEGATIVE) 10/16/23 16:30 Hyaline Casts Numerous /LPF (NEGATIVE) 10/13/23 20:08 Urine Mucus Few /HPF (NEGATIVE) 10/16/23 16:30 Ur Culture Indicated? Yes/culture set up 10/16/23 16:30 Digoxin 0.43 ng/mL (0.9-2) L 10/24/23 04:31 Urine Opiates Screen Negative (NEG=<300) 10/13/23 20:08 Urine Methadone Screen Negative (NEG=<300) 10/13/23 20:08 Ur Barbiturates Screen Negative (NEG=<200) 10/13/23 20:08 Ur Phencyclidine Scrn Negative (NEG=<25) 10/13/23 20:08 Ur Amphetamines Screen Negative (NEG=<1000) 10/13/23 20:08 U Benzodiazepines Scrn Negative (NEG=<200) 10/13/23 20:08 Urine Cocaine Screen Positive (NEG=<300) 10/13/23 20:08 U Marijuana (THC) Screen Negative (NEG=<50) 10/13/23 20:08 Infect Dis PCR Plus see scanned report 10/15/23 03:45 Blood Type O POSITIVE 10/21/23 19:50 Antibody Screen Negative 10/21/23 19:50 Crossmatch See Detail 10/21/23 19:50 Reason For Visit: CRITICAL ISCHEMIA RIGHT LEG Discharge Date Discharge Date: 10/26/23 Discharge Diagnosis All Active Problems (Updated 10/26/23 @ 09:52 by Stephen Turner) Wound of right foot (Acute) Anemia (Acute) Type 2 diabetes mellitus (Chronic) Atrial fibrillation (Chronic) Ischemic leg (Acute) Gout (Acute) Tobacco abuse (Acute) Hyperlipidemia (Chronic) Essential (primary) hypertension (Chronic) Type 2 diabetes mellitus without complications (Acute) Atherosclerosis of [place] arteries of extremities with rest pain, left leg (Acute) Atherosclerosis of [place] arteries of extremities with rest pain, right leg (Acute) Plan of Treatment: Continue with present treatment and follow up plan. Pt is to keep follow up appointment as instructed and take medications as ordered. Discharge Medications Discharge Medications: No Known Allergies Allergy (Verified 10/13/23 13:28) CONTINUE taking the following medications amlodipine 10 mg tablet 10 mg PO QDAY 10/13/23 [History] apixaban 5 mg tablet (Eliquis) 5 mg PO BID 10/13/23 [History] colchicine 0.6 mg tablet 0.6 mg PO QDAY 10/13/23 [History] digoxin 125 mcg (0.125 mg) tablet 125 mcg PO QDAY 10/13/23 [History] doxazosin 4 mg tablet 4 mg PO QDAY 10/13/23 [History] hydralazine 25 mg tablet 25 mg PO QDAY 10/13/23 [History] hydrochlorothiazide 25 mg tablet 25 mg PO QDAY 10/13/23 [History] lisinopril 40 mg tablet 40 mg PO QDAY 10/13/23 [History] paroxetine HCl 20 mg tablet 20 mg PO QDAY 10/13/23 [History] potassium chloride 10 mEq capsule,extended release 10 meq PO QDAY 10/13/23 [History] simvastatin 10 mg tablet 10 mg PO QPM 10/13/23 [History] New Prescriptions digoxin 250 mcg (0.25 mg) tablet (Lanoxin) 250 mcg PO QDAY #30 tabs 10/26/23 [Rx] diltiazem HCl 180 mg capsule,extended release 24 hr (Cardizem CD) 180 mg PO QDAY #30 caps 10/26/23 [Rx] gentamicin 0.1 % topical cream 1 applic topical QID #1 g 10/26/23 [Rx] glipizide 2.5 mg-metformin 250 mg tablet 1 tab PO QDAY #30 tabs 10/26/23 [Rx] Percocet 5 mg 1 po q 6 Hr PRN pain, # 30 Discharge Disposition Assessment: see hospital course Discharge Plan Discharge Plan Hospital Course: This is a 68 year old male who had been seen by me recently for significant bilateral lower extremity ischemia . In late July of this year he underwent stenting of the right common and external iliac arteries as well as stenting of the right superficial femoral artery. Several weeks later he underwent atherectomy and Drug coated balloon angioplasty of the left SFA and he was seen in follow-up once and was doing well and we ordered follow-up dopplers which were done several weeks ago showing complete occlusion with severe i schemia of the right leg. We tried to get in touch with him but he didn't return phone calls for over 2 weeks. Apparently he had been at home doing significant amount of cocaine and when he did follow up he had a severely ischemic right leg. He was admitted on October 15 and was taken to the operating Suite where we attempted to place a catheter across the right iliac from the right ankle and from the left iliac artery side but all were unsuccessful. We could get the wire started down the right common iliac artery but could not get enough support to pass the catheter beyond the occlusion. He was taken back to the CCU and maintained on anticoagulation with therapeutic Lovenox but unfortunately went into significant cocaine withdrawal which had to be treated. This took several days to resolve and he was taken back to the operating Suite on October 18 where he under went placement of a thrombolytic catheter via the left brachial artery all the way down the right leg. He had 24 hours of thrombolysis and still had some evidence of withdrawal symptoms. He was taken back to the operating Suite on the 20 of October and repeat arteriogram showed resolution of almost all of the thrombus with evidence of significant stenosis of the [place] right external iliac artery. This was stented and the rest of the previous placed stents were balloon dilated and he had good doppler signals at the right ankle. Post procedure his withdrawal symptoms have resolved but he has dark discoloration of all the toes of the right foot. We are watching that to wait for them to demarcate. He was supposed to be sent to a Intermediate Facility but he was refused that. He signed out against medical advice today and hopefully I will see him in follow up in 1 week to determine whether he needs a transmetatarsal amputation versus a right below knee amputation. He will be on his usual medications to include Percocet 5 milligram tablets 1 every 6 hours PRN pain plus Xarelto 2.5 milligrams BID by mouth and aspirin 81 milligrams daily in addition to his .home medications. Hopefully he will follow up with me in 1 week . He is to be followed by Home Health. Patient Disposition: HOME HEALTH SERVICE Condition: Stable Health Concerns: Post Hospitalization: new medications and changes needed to prevent readmission or further decline. Pt educated and given instructions on all concerns. Care Plan Goals: Problem: Pain/Alteration in Comfort Goal: Improve/ Resolve Pain; Achieve Pain Tolerance Instructions: Take pain medications as prescribed. Contact your primary care provider if your pain is unrelieved or worsens. Follow up with primary care provider as directed. Plan of Treatment: Continue with present treatment and follow up plan. Pt is to keep follow up appointment as instructed and take medications as ordered. Assessment: see hospital course Prescriptions: New gentamicin 0.1 % Cream 1 applic TOPICAL QID Qty: 1 0RF digoxin [Lanoxin] 250 mcg (0.25 mg) Tablet 250 mcg PO QDAY Qty: 30 0RF glipizide-metformin 2.5-250 mg Tablet 1 tab PO QDAY Qty: 30 0RF diltiazem HCl [Cardizem CD] 180 mg Capsule,Extended Release 24hr 180 mg PO QDAY Qty: 30 0RF oxycodone-acetaminophen [Percocet] 5-325 mg tablet 1 tab PO Q6H MDD 4 PRNQty: 30 0RF Continued Xarelto 2.5 mg tablet 2.5 mg PO BID Qty: 60 6RF aspirin 81 mg Capsule 81 mg PO QDAY Qty: 30 0RF Rx Instructions: Take one tab daily potassium chloride 10 mEq capsule, extended release 10 meq PO QDAY simvastatin 10 mg tablet 10 mg PO QPM hydralazine 25 mg tablet 25 mg PO QDAY amlodipine 10 mg tablet 10 mg PO QDAY paroxetine HCl 20 mg tablet 20 mg PO QDAY doxazosin 4 mg tablet 4 mg PO QDAY hydrochlorothiazide 25 mg tablet 25 mg PO QDAY digoxin 125 mcg (0.125 mg) tablet 125 mcg PO QDAY colchicine 0.6 mg tablet 0.6 mg PO QDAY lisinopril 40 mg tablet 40 mg PO QDAY Eliquis 5 mg tablet 5 mg PO BID Follow ups/Referrals Follow ups/Referrals: ANDERSON ROSA [STAFF PHYSICIAN] - 1 WEEK To [facility] [Primary Care Provider] - 11/08/23 11:45 am Instructions Instructions: Supporting Someone With an Addiction, Hypotension, [id number], Substance Use Disorder, Endovascular Therapy for Peripheral Vascular Disease, Care After, Type 2 Diabetes Mellitus, Self-Care, Adult, [id number], Blood Glucose Monitoring, Adult Stand Alone Forms: Excuse From Work or School, Post Hospital Follow Up Care
--- NOTE | 2023-11-02 08:39 | DR.PROGNOT ---
HOSPITAL PROGRESS NOTE Progress Note for Day of: Progress Note Date: 10/24/23 Chief Complaint Chief Complaint: foot pain History of Present Illness History of Present Illness: Pt was initially requesting a transfer to [facility] yester day afternoon, but now wanting to stay. Vascular planning BKA next week. Past Medical Family Social History Allergies: Allergies No Known Allergies Allergy (Verified 10/13/23 13:28) Review Of Systems ROS: Changes notes (describe) (Chills/rigors) Vital Signs Vital Signs: Vital Signs Pulse Rate 66 Pulse Rate 63 Pulse Rate 69 Pulse Rate 68 Pulse Rate 65 Pulse Rate 72 Pulse Rate 66 Pulse Rate 74 Pulse Rate 65 Pulse Rate 60 Respiratory Rate 18 Respiratory Rate 16 Respiratory Rate 18 Respiratory Rate 16 Respiratory Rate 18 Respiratory Rate 20 Respiratory Rate 20 Respiratory Rate 20 Blood Pressure 119/70 Blood Pressure 115/71 Blood Pressure 121/58 Blood Pressure 101/57 Blood Pressure 103/58 Blood Pressure 113/58 Blood Pressure 114/58 Blood Pressure 99/51 O2 Sat by Pulse Oximetry 97 O2 Sat by Pulse Oximetry 96 O2 Sat by Pulse Oximetry 97 O2 Sat by Pulse Oximetry 98 O2 Sat by Pulse Oximetry 100 O2 Sat by Pulse Oximetry 100 O2 Sat by Pulse Oximetry 97 O2 Sat by Pulse Oximetry 97 O2 Sat by Pulse Oximetry 97 Physical Exam Oriented: Normal, Time, Person and Place Eyes: Normal Ear: Normal Nose: Normal Throat: Normal Respiratory: Normal Cardiovascular: Normal and Other (Cool right foot and ankle with some edema compared to the left. ) : Normal GI:Auscultation: Normal GI:Palpation: Normal GI: Tenderness: Normal Skin: Normal Musculoskeletal: Normal Psychiatric: Anxiety and Agitation Mood Description: Anxious Affect: Anxious Speech Pattern: Clear and Appropriate Laboratory and Diagnostics 10/26/23 04:13 10/26/23 04:13 Labs: 10/21/23 04:57 Blood Blood Culture - Preliminary 10/21/23 04:35 Blood Blood Culture - Preliminary 10/15/23 08:45 Foot - Right Wound Gram Stain - Final 10/15/23 08:45 Foot - Right Wound Culture - Final 10/13/23 20:48 Blood Blood Culture - Final 10/13/23 20:37 Blood Blood Culture - Final 10/16/23 16:30 Urine,Catheterized Urine Culture - Final 10/15/23 03:45 Urine,Clean Catch Urine Culture - Final Laboratory WBC 11.0 X10^3/uL (3.6-10.0) H 10/24/23 04:31 RBC 2.93 X10^6/uL (4.7-6.0) L 10/24/23 04:31 Hgb 8.6 g/dL (13.5-18.0) L 10/24/23 04:31 Hct 26.4 % (42.0-54.0) L 10/24/23 04:31 MCV 89.8 fL (80.0-100.0) 10/24/23 04:31 MCH 29.4 pg (27.0-34.0) 10/24/23 04:31 MCHC 32.8 g/dL (33.0-35.0) L 10/24/23 04:31 RDW 15.5 % (11.6-16.5) 10/24/23 04:31 Plt Count 249 X10^3/uL (150.0-450.0) 10/24/23 04:31 Plt Count Comment Adequate (ADEQUATE) 10/22/23 05:35 MPV 8.7 fL (7.4-11.0) 10/24/23 04:31 Neut % (Auto) 77.5 % (42.0-75.0) H 10/24/23 04:31 Lymph % (Auto) 14.5 % (21.0-51.0) L 10/24/23 04:31 [place] % (Auto) 7.0 % (0.0-13.0) 10/24/23 04:31 Eos % (Auto) 0.6 % (0.9-2.9) L 10/24/23 04:31 Baso % (Auto) 0.4 % (0.2-1.0) 10/24/23 04:31 Neut # (Auto) 8.6 x10^3/uL (2.2-4.8) H 10/24/23 04:31 Lymph # (Auto) 1.6 X10^3/uL (1.3-2.9) 10/24/23 04:31 [place] # (Auto) 0.8 x10^3/uL (0.3-0.8) 10/24/23 04:31 Eos # (Auto) 0.1 x10^3/uL (0.0-0.2) 10/24/23 04:31 Baso # (Auto) 0.0 X10^3/uL (0.0-0.1) 10/24/23 04:31 Absolute Nucleated RBC 0.2 /100WBC 10/24/23 04:31 Total Counted 100 10/22/23 05:35 Neutrophils % (Manual) 79 % (39-76) H 10/22/23 05:35 Band Neutrophils % 0 % (0-10) 10/22/23 05:35 Lymphocytes % (Manual) 13 % (13-43) 10/22/23 05:35 Monocytes % (Manual) 7 % (4-9) 10/22/23 05:35 Eosinophils % (Manual) 1 % (0-6) 10/22/23 05:35 Basophils % (Manual) 0 % (0-1) 10/22/23 05:35 Metamyelocytes % Cancelled 10/14/23 04:26 Myelocytes % Cancelled 10/14/23 04:26 Promyelocytes % Cancelled 10/14/23 04:26 Nucleated RBCs 1 10/19/23 04:49 Atypical Lymphocytes Cancelled 10/14/23 04:26 Blast Cells Cancelled 10/14/23 04:26 Smudge Cells Cancelled 10/14/23 04:26 Toxic Granulation Cancelled 10/14/23 04:26 Dohle Bodies Cancelled 10/14/23 04:26 Binu Rods Cancelled 10/14/23 04:26 Plt Clumps, EDTA Cancelled 10/14/23 04:26 Giant Platelets Cancelled 10/14/23 04:26 Plt Morphology Comment Normal (NORMAL) 10/22/23 05:35 RBC Morphology Normal (NORMAL) 10/22/23 05:35 Dimorphic RBCs Cancelled 10/14/23 04:26 Polychromasia Cancelled 10/14/23 04:26 Hypochromasia Cancelled 10/14/23 04:26 Poikilocytosis Cancelled 10/14/23 04:26 Basophilic Stippling Cancelled 10/14/23 04:26 Anisocytosis Cancelled 10/14/23 04:26 Microcytosis Cancelled 10/14/23 04:26 Macrocytosis Cancelled 10/14/23 04:26 Spherocytes Cancelled 10/14/23 04:26 Pappenheimer Bodies Cancelled 10/14/23 04:26 Sickle Cells Cancelled 10/14/23 04:26 Target Cells Present 10/17/23 06:05 Tear Drop Cells Cancelled 10/14/23 04:26 Ovalocytes Cancelled 10/14/23 04:26 Stomatocytes Cancelled 10/14/23 04:26 Helmet Cells Cancelled 10/14/23 04:26 [place] Bodies Cancelled 10/14/23 04:26 [place] Rings Cancelled 10/14/23 04:26 Globe Cells Cancelled 10/14/23 04:26 Crenated Cell Cancelled 10/14/23 04:26 Acanthocytes (Spur) Cancelled 10/14/23 04:26 Rouleaux Cancelled 10/14/23 04:26 Schistocytes Cancelled 10/14/23 04:26 Absolute Retic 0.0773 10^6/uL 10/14/23 09:30 Percent Retic 2.28 % (0.8-2.2) H 10/14/23 09:30 PT 16.7 SECONDS (11.8-14.3) 10/16/23 16:04 INR Target Range - 10/16/23 16:04 INR 1.39 (0.8-1.3) H 10/16/23 16:04 APTT 36.1 SECONDS (22.9-36.5) 10/21/23 19:10 PTT Comment - 10/21/23 19:10 Fibrinogen 563 mg/dL (239-489) H 10/21/23 19:10 Factor XII Activity 90 10/13/23 16:14 Sample Site Rrad 10/16/23 16:03 ABG pH 7.570 (7.35-7.45) H* 10/16/23 16:03 ABG pCO2 36.0 mmHg (35.0-45.0) 10/16/23 16:03 ABG pO2 61.0 mmHg (80.0-100.0) L 10/16/23 16:03 ABG HCO3 33.0 mmol/L (22-26) H* 10/16/23 16:03 ABG O2 Saturation 94.0 % (90-100) 10/16/23 16:03 ABG Base Excess 10.3 mmol/L (-2.0-2.0) H 10/16/23 16:03 Ronnie Test Pos 10/16/23 16:03 A-a Gradient 122.0 mmHg 10/16/23 16:03 FiO2 32.0 10/16/23 16:03 Blood Gas Comments Pt holly well elj cdn 10/16/23 16:03 Sodium 137 mmol/L (136-145) 10/24/23 04:31 Corrected Sodium TNP 10/24/23 04:31 Potassium 3.8 mmol/L (3.5-5.1) 10/24/23 04:31 Chloride 99 mmol/L (98-107) 10/24/23 04:31 Carbon Dioxide 31.9 mmol/L (21-32) 10/24/23 04:31 BUN 11 mg/dL (7-18) 10/24/23 04:31 Creatinine 1.35 mg/dL (0.70-1.30) H 10/24/23 04:31 Est GFR (MDRD) Af Amer > 60 (>60) 10/24/23 04:31 Est GFR (MDRD) Non-Af 56 (>60) L 10/24/23 04:31 Glucose 105 mg/dL (65-99) H 10/24/23 04:31 POC Glucose (mg/dL) 149 mg/dL (65-99) H 10/24/23 11:39 Hemoglobin A1c 7.5 % 10/13/23 13:30 Lactic Acid 1.6 mmol/L (0.4-2.0) 10/22/23 15:15 Calcium 8.0 mg/dL (8.5-10.1) L 10/24/23 04:31 Corrected Calcium 9.9 mg/dL (8.5-10.1) 10/24/23 04:31 Magnesium 2.4 mg/dL (2.0-2.9) 10/22/23 05:35 Iron 14 ug/dL (50-175) L 10/14/23 09:30 TIBC 175 ug/dL (250-450) L 10/14/23 09:30 Transferrin 140 mg/dL (202-364) L 10/14/23 09:30 Ferritin 853 ng/mL (26-388) H 10/14/23 09:30 Total Bilirubin 0.80 mg/dL (0.2-1.0) 10/24/23 04:31 AST 47 Units/L (15-37) H 10/24/23 04:31 ALT 25 Units/L (12-78) 10/24/23 04:31 Alkaline Phosphatase 114 Units/L (46-116) 10/24/23 04:31 Ammonia < 10 umol/L (11-32) L 10/16/23 16:04 Troponin I High Sens 59.6 ng/L (4.0-60.0) 10/13/23 17:13 B-Natriuretic Peptide 874 pg/mL (0-79) H 10/16/23 01:30 Total Protein 6.6 g/dL (6.4-8.2) 10/24/23 04:31 Albumin 1.6 g/dL (3.4-5.0) L 10/24/23 04:31 Globulin 5.0 g/dL (2.5-4.5) H 10/24/23 04:31 Albumin/Globulin Ratio 0.3 Ratio (1.1-2.1) L 10/24/23 04:31 Vitamin B12 370 pg/mL (193-986) 10/14/23 09:30 Folate 8.6 ng/mL (>8.6) 10/14/23 09:30 Specimen Type Catherized urine 10/16/23 16:30 Urine Color Dark yellow (YELLOW) 10/16/23 16:30 Urine Appearance Clear (CLEAR) 10/16/23 16:30 Urine pH 6.0 (5.0 - 8.0) 10/16/23 16:30 Ur Specific [place] 1.020 (1.000-1.030) 10/16/23 16:30 Urine Protein 3+ (NEGATIVE) 10/16/23 16:30 Urine Glucose (UA) Negative (NEGATIVE) 10/16/23 16:30 Urine Ketones Negative (NEGATIVE) 10/16/23 16:30 Urine Blood 3+ (NEGATIVE) 10/16/23 16:30 Urine Nitrite Negative (NEGATIVE) 10/16/23 16:30 Urine Bilirubin 1+ (NEGATIVE) 10/16/23 16:30 Urine Urobilinogen 2+ (NORMAL) 10/16/23 16:30 Ur Leukocyte Esterase 1+ (NEGATIVE) 10/16/23 16:30 Urine RBC 3-5 /HPF (0-3) A 10/16/23 16:30 Urine WBC 3-5 /HPF (0-5) 10/16/23 16:30 Ur Squamous Epith Cells Rare /HPF (NEGATIVE) 10/16/23 16:30 Ur Transition Epith Cell Rare /HPF (NEGATIVE) 10/13/23 20:08 Amorphous Sediment Trace /HPF (NEGATIVE) 10/16/23 16:30 Urine Bacteria Trace /HPF (NEGATIVE) 10/16/23 16:30 Hyaline Casts Numerous /LPF (NEGATIVE) 10/13/23 20:08 Urine Mucus Few /HPF (NEGATIVE) 10/16/23 16:30 Ur Culture Indicated? Yes/culture set up 10/16/23 16:30 Digoxin 0.43 ng/mL (0.9-2) L 10/24/23 04:31 Urine Opiates Screen Negative (NEG=<300) 10/13/23 20:08 Urine Methadone Screen Negative (NEG=<300) 10/13/23 20:08 Ur Barbiturates Screen Negative (NEG=<200) 10/13/23 20:08 Ur Phencyclidine Scrn Negative (NEG=<25) 10/13/23 20:08 Ur Amphetamines Screen Negative (NEG=<1000) 10/13/23 20:08 U Benzodiazepines Scrn Negative (NEG=<200) 10/13/23 20:08 Urine Cocaine Screen Positive (NEG=<300) 10/13/23 20:08 U Marijuana (THC) Screen Negative (NEG=<50) 10/13/23 20:08 Infect Dis PCR Plus see scanned report 10/15/23 03:45 Blood Type O POSITIVE 10/21/23 19:50 Antibody Screen Negative 10/21/23 19:50 Crossmatch See Detail 10/21/23 19:50 Assessment and Plan 1: DM2 without long-term insulin use. Continue current medications. Continue to monitor sugars. 2: Paroxysmal atrial fibrillation. Continue digoxin and Cardizem along with Eliquis. 3: Type 2 diabetes mellitus with peripheral arterial disease. Continue per vascular. Continue Eliquis and simvastatin. 4: Essential hypertension. Continue current.
--- NOTE | 2023-11-02 17:18 | OR.IMMED ---
IMMEDIATE POST-OP NOTE Immediate Post-Op Note Date of surgery/procedure: 10/14/23 Pre-Op Diagnosis: critical limb threatening ischemia right leg Post-Op Diagnosis: same, secondary to thombosis of right external iliac artert stent and thrombotic occlusion of right superficial femoral artery stents Procedure: Diagnostic aortogram, diagnostic arteriogram right leg, failed multiple attempts to cross thrombosis of the right ilaic and right superficial femoral arteries Surgeon/Theater Teacher: Arin Findings: as above Estimated Blood Loss: 200cc Complications: none Progress Notes: returned to CCU to continue anticoagulation
== END 2023-10-26 10:20 | disposition left against medical advice (07) | DRG 271 ==
LOC: ICU 12:33
PROVIDERS: ADMIT Surgery; ATTEND Surgery

== ENCOUNTER 2023-11-08 11:21 | Inpatient (IN) ==
[2023-11-08] MEDS ORDERED: LOVENOX INJ 80 MG SYR SC SCH (14:00)
[2023-11-08 14:32] LABS: BASOPHILS # (AUTO) 0.1 X10^3/uL (0.0-0.1); BASOPHILS % (AUTO) 1.2 % (0.2-1.0); EOSINOPHILS # (AUTO) 0.1 x10^3/uL (0.0-0.2); EOSINOPHILS % (AUTO) 0.9 % (0.9-2.9); HEMATOCRIT 29.2 % (42.0-54.0); HEMOGLOBIN 9.6 g/dL (13.5-18.0); LYMPHOCYTES # (AUTO) 0.8 X10^3/uL (1.3-2.9); LYMPHOCYTES % (AUTO) 11.2 % (21.0-51.0); MEAN CORPUSCULAR HEMOGLOBIN 30.1 pg (27.0-34.0); MEAN CORPUSCULAR HGB CONC 32.9 g/dL (33.0-35.0); MEAN CORPUSCULAR VOLUME 91.5 fL (80.0-100.0); MEAN PLATELET VOLUME 7.5 fL (7.4-11.0); MONOCYTES # (AUTO) 0.9 x10^3/uL (0.3-0.8); NEUTROPHILS # (AUTO) 4.9 x10^3/uL (2.2-4.8); NEUTROPHILS % (AUTO) 72.7 % (42.0-75.0); PLATELET COUNT 263 X10^3/uL (150.0-450.0); RED BLOOD COUNT 3.19 X10^6/uL (4.7-6.0); RED CELL DISTRIBUTION WIDTH 17.2 % (11.6-16.5); WHITE BLOOD COUNT 6.7 X10^3/uL (3.6-10.0)
[2023-11-08 14:59] LABS: ALANINE AMINOTRANSFERASE 7 Units/L (12-78); ALBUMIN 2.2 g/dL (3.4-5.0); ALKALINE PHOSPHATASE 116 Units/L (46-116); ASPARTATE AMINO TRANSFERASE 13 Units/L (15-37); BLOOD UREA NITROGEN 15 mg/dL (7-18); CALCIUM 8.1 mg/dL (8.5-10.1); CARBON DIOXIDE 34.9 mmol/L (21-32); CHLORIDE 104 mmol/L (98-107); COR CA(FOR HYPOALB) 9.5 mg/dL (8.5-10.1); CREATININE 1.54 mg/dL (0.70-1.30); GLUCOSE 108 mg/dL (65-99); POTASSIUM 3.3 mmol/L (3.5-5.1); SODIUM 143 mmol/L (136-145); TOTAL PROTEIN 6.6 g/dL (6.4-8.2); eGFR NON BLACK RACES 48 (>60)
[2023-11-08] MEDS: APRESOLINE TAB 25 MG PO SCH (15:14)
[2023-11-08] MEDS: LOVENOX INJ 100 MG SYR SC SCH (15:14)
[2023-11-08] MEDS: LR 1,000 ML IV 1,000 ML IV SCH (15:46)
[2023-11-08] MEDS: DILAUDID INJ IVP PRN (16:06)
[2023-11-08] MEDS ORDERED: CONSULT PHARMACY - POTASSIUM & MAGNESIUM XX SCH (17:00)
[2023-11-08] MEDS: K-DUR TAB 20 MEQ PO ONE (18:29)
[2023-11-08] MEDS: SNACK - Diabetic Appropriate PO SCH (20:00)
[2023-11-08] MEDS: NEURONTIN CAP 100 MG PO SCH (21:27)
[2023-11-08] MEDS: ZOCOR TAB 20 MG PO SCH (21:27)
[2023-11-08] MEDS: HIBICLENS WASH EXT ONE (23:35)
[2023-11-08] MEDS: NOZIN NASAL SANITIZER TP ONE (23:36)
[2023-11-09 06:23] LABS: MAGNESIUM 1.9 mg/dL (2.0-2.9); POTASSIUM 3.5 mmol/L (3.5-5.1)
[2023-11-09] MEDS ORDERED: CONSULT PHARMACY - POTASSIUM & MAGNESIUM XX SCH (07:00)
[2023-11-09] MEDS: CARDURA PO SCH (08:37)
[2023-11-09] MEDS: NICOTINE PATCH TD SCH (08:37)
[2023-11-09] MEDS: NORVASC TAB 10 MG PO SCH (08:38)
[2023-11-09] MEDS: HYDROCHLOROTHIAZIDE 25 MG TAB PO SCH (08:38)
[2023-11-09] MEDS: COLCRYS TAB 0.6 MG PO SCH (14:11)
[2023-11-09] MEDS: ASPIRIN EC 81 MG PO SCH (14:11)
[2023-11-09] MEDS: LR 1,000 ML IV 0 ML IV ONE (14:51)
[2023-11-09] MEDS: NS 1,000 ML IV 1,000 ML ONE (14:52)
[2023-11-09] MEDS: ANCEF VIAL 1 GRAM ONE (15:49)
[2023-11-09] MEDS: VERSED ONE (15:49)
[2023-11-09] MEDS: FENTANYL VIAL INJ 100 mcg ONE (15:49)
[2023-11-09] MEDS: NS 100 ML IV 100 ML ONE (15:49)
[2023-11-09] MEDS: DIPRIVAN VIAL 20 ML ONE (15:49)
[2023-11-09] MEDS: ZOFRAN INJ 4 MG VIAL ONE (15:50)
[2023-11-09] MEDS: PEPCID 20 MG VIAL ONE (15:50)
[2023-11-09] MEDS: ROBINUL ONE (15:56)
[2023-11-09] MEDS: NEO-SYNEPHRINE INJ ONE (16:35)
--- NOTE | 2023-11-09 17:03 | OR.IMMED ---
IMMEDIATE POST-OP NOTE Immediate Post-Op Note Date of surgery/procedure: 11/09/23 Pre-Op Diagnosis: gangrene right foot Post-Op Diagnosis: same Procedure: right below knee amputation Description of Procedure: see dictation Surgeon/Life Trainer: Arin Findings: as above Specimens Removed: right foot Estimated Blood Loss: 300cc Complications: none Progress Notes: to PACU and then floor, check CBC
[2023-11-09] MEDS: DILAUDID INJ IVP PRN (17:05)
[2023-11-09] MEDS ORDERED: DILAUDID INJ ONE ×2 (17:06→17:21)
[2023-11-09 17:18] LABS: BASOPHILS # (AUTO) 0.1 X10^3/uL (0.0-0.1); BASOPHILS % (AUTO) 0.8 % (0.2-1.0); EOSINOPHILS % (AUTO) 0.6 % (0.9-2.9); HEMATOCRIT 28.3 % (42.0-54.0); HEMOGLOBIN 9.3 g/dL (13.5-18.0); LYMPHOCYTES # (AUTO) 1.3 X10^3/uL (1.3-2.9); LYMPHOCYTES % (AUTO) 19.3 % (21.0-51.0); MEAN CORPUSCULAR HEMOGLOBIN 29.8 pg (27.0-34.0); MEAN CORPUSCULAR HGB CONC 32.8 g/dL (33.0-35.0); MEAN PLATELET VOLUME 7.2 fL (7.4-11.0); MONOCYTES # (AUTO) 0.8 x10^3/uL (0.3-0.8); MONOCYTES % (AUTO) 12.9 % (0.0-13.0); NEUTROPHILS # (AUTO) 4.3 x10^3/uL (2.2-4.8); NEUTROPHILS % (AUTO) 66.4 % (42.0-75.0); PLATELET COUNT 249 X10^3/uL (150.0-450.0); RED BLOOD COUNT 3.11 X10^6/uL (4.7-6.0); RED CELL DISTRIBUTION WIDTH 16.7 % (11.6-16.5); WHITE BLOOD COUNT 6.5 X10^3/uL (3.6-10.0)
[2023-11-09] MEDS ORDERED: BARHEMSYS INJ IVP PRN (17:18)
[2023-11-09] MEDS ORDERED: ZOFRAN INJ 4 MG VIAL IVP PRN (17:18)
[2023-11-09] MEDS ORDERED: BENADRYL INJ 50 MG VIAL IVP PRN (17:18)
[2023-11-09] MEDS ORDERED: REGLAN INJ 10 MG VIAL IVP PRN (17:18)
[2023-11-09] MEDS: BREVIBLOC ONE (17:27)
--- NOTE | 2023-11-09 18:47 | EKG ---
Test Reason : Blood Pressure : */* mmHG Vent. Rate : 117 BPM Atrial Rate : * BPM P-R Int : * ms QRS Dur : 82 ms QT Int : 328 ms P-R-T Axes : * 52 162 degrees QTc Int : 457 ms Atrial fibrillation with rapid ventricular response with premature ventricular or aberrantly conducte d complexes Low voltage QRS Cannot rule out Anterior infarct , age undetermined Abnormal ECG When compared with ECG of 18-OCT-2023 07:55, No significant change was found Confirmed by Bharat Ovalle MD ([id number]) on 11/10/2023 7:49:27 AM Referred By: Confirmed By: Bharat Ovalle MD
[2023-11-09] MEDS: CARDIZEM INJ 50 MG VIAL IVP ONE (19:56)
[2023-11-09] MEDS: CARDIZEM INJ 125 MG VIAL 125 MG in NS 100 ML IV 100 ML IV PRN (20:08)
[2023-11-09] MEDS: SNACK - Diabetic Appropriate PO SCH (20:15)
[2023-11-10 05:22] LABS: MAGNESIUM 1.7 mg/dL (2.0-2.9); POTASSIUM 3.6 mmol/L (3.5-5.1)
[2023-11-10] MEDS ORDERED: CONSULT PHARMACY - POTASSIUM & MAGNESIUM XX SCH (07:00)
[2023-11-10] MEDS: CARDIZEM INJ 125 MG VIAL ONE (07:55)
[2023-11-10] MEDS: EPHEDRINE SULFATE INJ ONE (07:55)
[2023-11-10] MEDS: K-DUR TAB 20 MEQ PO SCH (08:05)
[2023-11-10] MEDS: MAG-OX TAB PO SCH ×2 (08:06→09:10)
[2023-11-10] MEDS: NS 100 ML IV 100 ML ONE (08:07)
[2023-11-10] MEDS: MICRO K EXTEN CAP 10 MEQ PO SCH (09:11)
[2023-11-10] MEDS: PHARMACY CONSULT - LOVENOX XX SCH (09:22)
[2023-11-10] MEDS: LOVENOX INJ 40 MG SYR SC SCH (11:35)
[2023-11-10] MEDS: NovoLIN R (or HumuLIN R) SUBCUT PRN (17:10)
--- NOTE | 2023-11-10 18:07 | NOTE.SOAP ---
Soap Note Note for Day of Date of Exam: 11/10/23 Subjective Data Subjective Data: Post-operative day 1 after right below knee amputation. Pain better controlled with IV deluded however, he has not been keeping the right knee extended. Had tachycardia last night, possibly atrial fibrillation responding well to IV cardizem . Have transitioned to his PO Digoxin and po Diltiazem. Objective Data Temperature: 98.1 F Pulse Rate: 76 Objective Data: HR stable, still a-fib, No significant drainage from right leg dressing . Hgb= 9.3 Assessment Assessment: Ischemic right leg ,failed revascualrization, now s/p right BKA, atrial fibrillation , now controlled rate, back on po medications Plan Plan: See assessment, Case management planning home health.
[2023-11-10] MEDS: CARDIZEM CD 180 MG 24-HR PO SCH (18:59)
[2023-11-10] MEDS: LANOXIN PO SCH (22:10)
[2023-11-11] MEDS: [UNRECOGNIZED DRUG - OTHER] IV ONE (09:32)
[2023-11-11] MEDS: POTASSIUM CHLORIDE IV ONE (09:32)
[2023-11-11] MEDS: MAGNESIUM SULFATE IV ONE (09:32)
--- NOTE | 2023-11-11 18:24 | NOTE.SOAP ---
Soap Note Note for Day of Date of Exam: 11/11/23 Subjective Data Subjective Data: POD # 2 s/p right BKA doing well, but still not extending that knee joint on the right Objective Data Pulse Rate: 77 Respiratory Rate: 30 Blood Pressure: 133/60 O2 Sat by Pulse Oximetry: 84 Objective Data: In NAD , no drainage right BKA Assessment Assessment: S/P Right BKA Plan Plan: awaiting home health planning
[2023-11-11] MEDS: COLACE CAP 100 MG PO SCH (20:12)
[2023-11-12] MEDS: MILK OF MAGNESIA PO SCH (10:04)
[2023-11-12] MEDS: MILK OF MAGNESIA ONE (10:22)
--- NOTE | 2023-11-12 15:20 | NOTE.SOAP ---
Soap Note Note for Day of Date of Exam: 11/12/23 Subjective Data Subjective Data: POD # 3 after right below knee amputation, Still not extending knee joint despite PT consult . pain under better control. No evidence of withdrawal Objective Data Temperature: 98.1 F Pulse Rate: 75 Respiratory Rate: 19 Blood Pressure: 135/74 O2 Sat by Pulse Oximetry: 94 Objective Data: S/P right BKA , no drainage, see above Assessment Assessment: s/p right BKA for gangrene right foot. Plan Plan: Home health hopefully to begin Wednesday, August tranfer to floor
[2023-11-13 07:13] LABS: BASOPHILS # (AUTO) 0.1 X10^3/uL (0.0-0.1); BASOPHILS % (AUTO) 0.7 % (0.2-1.0); EOSINOPHILS # (AUTO) 0.1 x10^3/uL (0.0-0.2); EOSINOPHILS % (AUTO) 1.1 % (0.9-2.9); HEMATOCRIT 21.4 % (42.0-54.0); HEMOGLOBIN 7.1 g/dL (13.5-18.0); LYMPHOCYTES % (AUTO) 12.7 % (21.0-51.0); MEAN CORPUSCULAR HEMOGLOBIN 29.2 pg (27.0-34.0); MEAN CORPUSCULAR HGB CONC 33.1 g/dL (33.0-35.0); MEAN CORPUSCULAR VOLUME 88.3 fL (80.0-100.0); MEAN PLATELET VOLUME 8.9 fL (7.4-11.0); MONOCYTES # (AUTO) 0.7 x10^3/uL (0.3-0.8); MONOCYTES % (AUTO) 9.5 % (0.0-13.0); NEUTROPHILS # (AUTO) 5.9 x10^3/uL (2.2-4.8); PLATELET COUNT 248 X10^3/uL (150.0-450.0); RED BLOOD COUNT 2.42 X10^6/uL (4.7-6.0); RED CELL DISTRIBUTION WIDTH 16.5 % (11.6-16.5); WHITE BLOOD COUNT 7.8 X10^3/uL (3.6-10.0)
[2023-11-13 07:19] LABS: ALANINE AMINOTRANSFERASE 11 Units/L (12-78); ALBUMIN 1.8 g/dL (3.4-5.0); ALKALINE PHOSPHATASE 88 Units/L (46-116); ASPARTATE AMINO TRANSFERASE 25 Units/L (15-37); BLOOD UREA NITROGEN 11 mg/dL (7-18); CALCIUM 7.9 mg/dL (8.5-10.1); CARBON DIOXIDE 34.5 mmol/L (21-32); CHLORIDE 96 mmol/L (98-107); COR CA(FOR HYPOALB) 9.7 mg/dL (8.5-10.1); CREATININE 0.99 mg/dL (0.70-1.30); GLUCOSE 107 mg/dL (65-99); POTASSIUM 3.1 mmol/L (3.5-5.1); SODIUM 137 mmol/L (136-145); TOTAL PROTEIN 6.3 g/dL (6.4-8.2); eGFR NON BLACK RACES > 60 (>60)
[2023-11-13] MEDS ORDERED: CONSULT PHARMACY - POTASSIUM & MAGNESIUM XX SCH (08:00)
[2023-11-13] MEDS: K-DUR TAB 20 MEQ PO SCH ×2 (08:56→20:07)
--- NOTE | 2023-11-13 19:10 | DR.H&P ---
H&P History & Physical for Day of: H&P Date: 11/09/23 Chief Complaint Chief Complaint: Gangrene right foot History of Present Illness History of Present Illness: This 68 year old male has had long-term problems with chronic ischemia both legs. He had right leg arterial intervention in July of this year and then the left leg done in August. At the time of follow-up in October his doppler studies showed completed collusion of the right leg arterial flow but I was unable to get a hold of him for over 2 weeks. He had been at home doing cocaine every day and when we saw him he was admitted and subsequently underwent thrombolysis and stenting of the right external iliac artery which saved his right leg, however he has gangrenous changes of the right foot with mummification of all the toes. He is admitted now for right b elow the amputation . Past Medical History Past Medical History: CHF, Diabetes, Dyslipidemia, Gout and Hypertension Additional Medical History: neuropathy both feet, significant tobacco use in the past. Past Surgical History Surgical History: Ortho Surgery Family History Family Medical History: NH, Sudden Cardiac and Hypertension Social History Does patient currently use any type of tobacco product: Yes Type of Tobacco Use: Cigarettes How many years tobacco product used: 30 Does any household member use tobacco: No Alcohol Use: None Drug Use: Cocaine Medications Home Medications: Home Medications Medication Instructions Recorded Confirmed Type amlodipine 10 mg tablet 10 mg PO QDAY 10/13/23 11/08/23 History apixaban 5 mg tablet (Eliquis) 5 mg PO BID 10/13/23 11/08/23 History colchicine 0.6 mg tablet 0.6 mg PO QDAY 10/13/23 11/08/23 History doxazosin 4 mg tablet 4 mg PO QDAY 10/13/23 11/08/23 History hydralazine 25 mg tablet 25 mg PO QDAY 10/13/23 11/08/23 History hydrochlorothiazide 25 mg tablet 25 mg PO QDAY 10/13/23 11/08/23 History lisinopril 40 mg tablet 40 mg PO QDAY 10/13/23 11/08/23 History paroxetine HCl 20 mg tablet 20 mg PO QDAY 10/13/23 11/08/23 History potassium chloride 10 mEq 10 meq PO QDAY 10/13/23 11/08/23 History capsule,extended release simvastatin 10 mg tablet 10 mg PO QPM 10/13/23 11/08/23 History diltiazem HCl 180 mg 180 mg PO QDAY 11/08/23 11/08/23 History capsule,extended release 24 hr (Cartia XT) glipizide 5 mg-metformin 500 mg 1 tab PO QMWF 11/08/23 11/10/23 History tablet Allergies Allergies Allergy/AdvReac Type Severity Reaction Status Date / Time No Known Allergies Allergy Verified 11/08/23 14:05 Labs 11/13/23 04:15 11/13/23 04:15 Labs: Laboratory WBC 7.8 X10^3/uL (3.6-10.0) 11/13/23 04:15 RBC 2.42 X10^6/uL (4.7-6.0) L 11/13/23 04:15 Hgb 7.1 g/dL (13.5-18.0) L 11/13/23 04:15 Hct 21.4 % (42.0-54.0) L 11/13/23 04:15 MCV 88.3 fL (80.0-100.0) 11/13/23 04:15 MCH 29.2 pg (27.0-34.0) 11/13/23 04:15 MCHC 33.1 g/dL (33.0-35.0) 11/13/23 04:15 RDW 16.5 % (11.6-16.5) 11/13/23 04:15 Plt Count 248 X10^3/uL (150.0-450.0) 11/13/23 04:15 MPV 8.9 fL (7.4-11.0) 11/13/23 04:15 Neut % (Auto) 76.0 % (42.0-75.0) H 11/13/23 04:15 Lymph % (Auto) 12.7 % (21.0-51.0) L 11/13/23 04:15 [place] % (Auto) 9.5 % (0.0-13.0) 11/13/23 04:15 Eos % (Auto) 1.1 % (0.9-2.9) 11/13/23 04:15 Baso % (Auto) 0.7 % (0.2-1.0) 11/13/23 04:15 Neut # (Auto) 5.9 x10^3/uL (2.2-4.8) H 11/13/23 04:15 Lymph # (Auto) 1.0 X10^3/uL (1.3-2.9) L 11/13/23 04:15 [place] # (Auto) 0.7 x10^3/uL (0.3-0.8) 11/13/23 04:15 Eos # (Auto) 0.1 x10^3/uL (0.0-0.2) 11/13/23 04:15 Baso # (Auto) 0.1 X10^3/uL (0.0-0.1) 11/13/23 04:15 Absolute Nucleated RBC 0.0 /100WBC 11/13/23 04:15 Sodium 137 mmol/L (136-145) 11/13/23 04:15 Corrected Sodium TNP 11/13/23 04:15 Potassium 3.1 mmol/L (3.5-5.1) L 11/13/23 04:15 Chloride 96 mmol/L (98-107) L 11/13/23 04:15 Carbon Dioxide 34.5 mmol/L (21-32) H 11/13/23 04:15 BUN 11 mg/dL (7-18) 11/13/23 04:15 Creatinine 0.99 mg/dL (0.70-1.30) 11/13/23 04:15 Est GFR (MDRD) Af Amer > 60 (>60) 11/13/23 04:15 Est GFR (MDRD) Non-Af > 60 (>60) 11/13/23 04:15 Glucose 107 mg/dL (65-99) H 11/13/23 04:15 POC Glucose (mg/dL) 140 mg/dL (65-99) H 11/13/23 15:48 Calcium 7.9 mg/dL (8.5-10.1) L 11/13/23 04:15 Corrected Calcium 9.7 mg/dL (8.5-10.1) 11/13/23 04:15 Magnesium 2.0 mg/dL (2.0-2.9) 11/13/23 04:15 Total Bilirubin 0.30 mg/dL (0.2-1.0) 11/13/23 04:15 AST 25 Units/L (15-37) 11/13/23 04:15 ALT 11 Units/L (12-78) L 11/13/23 04:15 Alkaline Phosphatase 88 Units/L (46-116) 11/13/23 04:15 Total Protein 6.3 g/dL (6.4-8.2) L 11/13/23 04:15 Albumin 1.8 g/dL (3.4-5.0) L 11/13/23 04:15 Globulin 4.5 g/dL (2.5-4.5) 11/13/23 04:15 Albumin/Globulin Ratio 0.4 Ratio (1.1-2.1) L 11/13/23 04:15 Digoxin 0.64 ng/mL (0.9-2) L 11/13/23 04:15 Urine Opiates Screen Negative (NEG=<300) 11/08/23 15:48 Urine Methadone Screen Negative (NEG=<300) 11/08/23 15:48 Ur Barbiturates Screen Negative (NEG=<200) 11/08/23 15:48 Ur Phencyclidine Scrn Negative (NEG=<25) 11/08/23 15:48 Ur Amphetamines Screen Negative (NEG=<1000) 11/08/23 15:48 U Benzodiazepines Scrn Positive (NEG=<200) 11/08/23 15:48 Urine Cocaine Screen Positive (NEG=<300) 11/08/23 15:48 U Marijuana (THC) Screen Negative (NEG=<50) 11/08/23 15:48 Blood Type O POSITIVE 11/09/23 15:43 Antibody Screen Negative 11/09/23 15:43 Review of Systems Constitutional: See HPI Eyes: No Symptoms Reported ENT: No Symptoms Reported Respiratory: No Symptoms Reported Cardiovascular: No Symptoms Reported Gastrointestinal: No Symptoms Reported Genitourinary: No Symptoms Reported Musculoskeletal: See HPI Skin: No Symptoms Reported Neurological: No Symptoms Reported Physical Exam Vital Signs: Vital Signs Temperature 98.7 F Temperature 99.3 F Pulse Rate 61 Pulse Rate 78 Pulse Rate 64 Pulse Rate 63 Pulse Rate 65 Pulse Rate 68 Pulse Rate 66 Pulse Rate 73 Pulse Rate 69 Respiratory Rate 16 Respiratory Rate 16 Respiratory Rate 18 Respiratory Rate 28 Respiratory Rate 15 Respiratory Rate 14 Respiratory Rate 28 Respiratory Rate 20 Respiratory Rate 24 Respiratory Rate 16 Respiratory Rate 12 Respiratory Rate 22 Respiratory Rate 20 Blood Pressure 122/65 Blood Pressure 117/66 Blood Pressure 117/66 Blood Pressure 113/56 O2 Sat by Pulse Oximetry 97 O2 Sat by Pulse Oximetry 96 O2 Sat by Pulse Oximetry 99 O2 Sat by Pulse Oximetry 99 O2 Sat by Pulse Oximetry 99 O2 Sat by Pulse Oximetry 94 O2 Sat by Pulse Oximetry 97 O2 Sat by Pulse Oximetry 96 O2 Sat by Pulse Oximetry 95 Oriented: Normal, Time, Person and Place Eyes: Normal Ear: Normal Nose: Normal Throat: Normal Respiratory: Clear Throughout Cardiovascular: Normal and Other (No palpable pulses or Doppler flow right foot ) : Normal Auscultation: Bowel Sounds: Normal Palpation: Normal Tenderness: Normal Skin: Other (cold right foot with dry gangrene of all the right toes and loss of skin over the dorsum of the foot ) Psychiatric: Normal Mood Description: Calm Affect: Normal Speech Pattern: Clear and Appropriate Assessment/Plan (1) Wound of right foot: Status: Acute Plan: patient admitted for a right below knee amputation (2) Cocaine abuse: Status: Resolved Plan: currently doing well (3) Anemia: Status: Acute Plan: will observe (4) Type 2 diabetes mellitus: Qualifiers: Diabetes mellitus technician terminal and repeater insulin use: without half-way use Status: Chronic Plan: sliding scale insulin (5) Atrial fibrillation: Qualifiers: Atrial fibrillation type: unspecified chronic Qualified Code(s): I48.20 - Chronic atrial fibrillation, unspecified Status: Chronic Plan: Home medications (6) Tobacco abuse: Status: Acute Plan: Nicotine patch (7) Essential (primary) hypertension: Status: Chronic Plan: home medications Review H&P Reviewed: Yes Patient was examined?: Yes
--- NOTE | 2023-11-13 19:23 | DR.OPNOTE ---
OP NOTE Pre-Op Diagnosis: gangrenous right foot Post-Op Diagnosis: same Procedure Date Date Of Procedure: 11/09/23 Procedure: PROCEDURE : RIGHT BELOW KNEE AMPUTATION NARRATIVE: The patient was taken to the operative suite and placed in the supine position. General endotracheal anesthesia induced and the entire right leg prepped and draped in sterile fashion. Time out for the procedure obtained. A planned dog legged incision was initiated one hands breathe below the tibial tuberosity , incising the skin with a number 15 by knife. The muscles of the anterior tibial compartment divided with electrocautery and the anterior artery and and vein were divided between clamps and tied with 2-0 silk suture ligatures. Periostel elevator used the elevate the periosteum of the tibia and the tibia divided with the Gigli saw. The fibula divided with a bone cutter and amputation knife used to complete the amputation. All major vessels clamped .there was good bleeding. These were tied with 2-0 silk suture literatures. The rest of hemostasis obtained with electrocautery. The two flaps approximated by closing the fascia with interpreted 0 Vicryl sutures and the skin closed with skin clemente. A compressive wrap was placed over the right below knee amputation. Patient taken to PACU in good condition. Type of Anesthesia: General Anesthetic w/ETT Findings: as above Specimen/Pathology: rigth foot sent to pathology Type of Fluids Used:: Lactated Ringers Total Amount of Fluid Infused:: 600cc EBL: 300 cc Complications:: none Needle/Sponge Count:: correct Disposition/Condition: Pt. tolerated procedure without difficulty. Extubated in the OR and taken to PACU in stable condition.
[2023-11-14 05:27] LABS: BASOPHILS % (AUTO) 0.6 % (0.2-1.0); EOSINOPHILS # (AUTO) 0.1 x10^3/uL (0.0-0.2); EOSINOPHILS % (AUTO) 1.9 % (0.9-2.9); HEMATOCRIT 23.9 % (42.0-54.0); HEMOGLOBIN 7.8 g/dL (13.5-18.0); LYMPHOCYTES # (AUTO) 1.4 X10^3/uL (1.3-2.9); LYMPHOCYTES % (AUTO) 19.8 % (21.0-51.0); MEAN CORPUSCULAR HEMOGLOBIN 28.9 pg (27.0-34.0); MEAN CORPUSCULAR HGB CONC 32.6 g/dL (33.0-35.0); MEAN CORPUSCULAR VOLUME 88.7 fL (80.0-100.0); MEAN PLATELET VOLUME 8.4 fL (7.4-11.0); MONOCYTES # (AUTO) 0.5 x10^3/uL (0.3-0.8); NEUTROPHILS # (AUTO) 4.9 x10^3/uL (2.2-4.8); NEUTROPHILS % (AUTO) 70.7 % (42.0-75.0); PLATELET COUNT 310 X10^3/uL (150.0-450.0); RED BLOOD COUNT 2.69 X10^6/uL (4.7-6.0); RED CELL DISTRIBUTION WIDTH 16.7 % (11.6-16.5)
[2023-11-14 05:44] LABS: ALANINE AMINOTRANSFERASE 15 Units/L (12-78); ALBUMIN 1.9 g/dL (3.4-5.0); ALKALINE PHOSPHATASE 101 Units/L (46-116); ASPARTATE AMINO TRANSFERASE 24 Units/L (15-37); BLOOD UREA NITROGEN 8 mg/dL (7-18); CALCIUM 8.3 mg/dL (8.5-10.1); CARBON DIOXIDE 34.8 mmol/L (21-32); CHLORIDE 97 mmol/L (98-107); COR NA(FOR HYPERGLY) 138 mmol/L (136-145); GLUCOSE 146 mg/dL (65-99); SODIUM 137 mmol/L (136-145); TOTAL PROTEIN 6.9 g/dL (6.4-8.2); eGFR NON BLACK RACES > 60 (>60)
[2023-11-14] MEDS ORDERED: CONSULT PHARMACY - POTASSIUM & MAGNESIUM XX SCH (06:00)
[2023-11-14] MEDS ORDERED: K-DUR TAB 20 MEQ PO SCH (10:00)
[2023-11-14] MEDS: POTASSIUM CHLORIDE INJ 40 MEQ VIAL 40 MEQ, POTASSIUM CHLORIDE INJ 20 MEQ VIAL 20 MEQ in... IV ONE (10:13)
--- NOTE | 2023-11-14 23:20 | NOTE.SOAP ---
Soap Note Note for Day of Date of Exam: 11/13/23 Subjective Data Subjective Data: S/P right BKA , doing well Objective Data Temperature: 98.3 F Pulse Rate: 67 Respiratory Rate: 22 Blood Pressure: 128/75 O2 Sat by Pulse Oximetry: 95 Objective Data: Patient not seen by me , chart reviewed and Ii discussed with his nurse. Stable right below knee amputation, dressing intact , Hgb=7.1 Assessment Assessment: s/p right BKA Plan Plan: Awaiting home health consult.
--- NOTE | 2023-11-14 23:44 | NOTE.SOAP ---
Soap Note Note for Day of Date of Exam: 11/14/23 Subjective Data Subjective Data: Doing well, POD # 5 after right BKA . Doing well Objective Data Temperature: 98.3 F Pulse Rate: 67 Respiratory Rate: 22 Blood Pressure: 128/75 O2 Sat by Pulse Oximetry: 95 Objective Data: dressing intact right BKA without drainage Assessment Assessment: s/p right BKA Plan Plan: Hopefully will discharge tomorrow if Home Health is set up.
[2023-11-15 04:43] LABS: BASOPHILS # (AUTO) 0.1 X10^3/uL (0.0-0.1); BASOPHILS % (AUTO) 0.6 % (0.2-1.0); EOSINOPHILS # (AUTO) 0.1 x10^3/uL (0.0-0.2); EOSINOPHILS % (AUTO) 0.9 % (0.9-2.9); HEMATOCRIT 22.8 % (42.0-54.0); HEMOGLOBIN 7.6 g/dL (13.5-18.0); LYMPHOCYTES # (AUTO) 1.1 X10^3/uL (1.3-2.9); LYMPHOCYTES % (AUTO) 10.6 % (21.0-51.0); MEAN CORPUSCULAR HGB CONC 33.2 g/dL (33.0-35.0); MEAN CORPUSCULAR VOLUME 87.3 fL (80.0-100.0); MEAN PLATELET VOLUME 8.1 fL (7.4-11.0); MONOCYTES # (AUTO) 0.9 x10^3/uL (0.3-0.8); MONOCYTES % (AUTO) 8.3 % (0.0-13.0); NEUTROPHILS # (AUTO) 8.6 x10^3/uL (2.2-4.8); NEUTROPHILS % (AUTO) 79.6 % (42.0-75.0); PLATELET COUNT 337 X10^3/uL (150.0-450.0); RED BLOOD COUNT 2.61 X10^6/uL (4.7-6.0); RED CELL DISTRIBUTION WIDTH 16.7 % (11.6-16.5); WHITE BLOOD COUNT 10.8 X10^3/uL (3.6-10.0)
[2023-11-15 04:47] LABS: BLOOD UREA NITROGEN 8 mg/dL (7-18); CALCIUM 8.3 mg/dL (8.5-10.1); CARBON DIOXIDE 32.2 mmol/L (21-32); CHLORIDE 98 mmol/L (98-107); GLUCOSE 102 mg/dL (65-99); POTASSIUM 3.9 mmol/L (3.5-5.1); SODIUM 135 mmol/L (136-145); eGFR NON BLACK RACES > 60 (>60)
[2023-11-15] MEDS: PERCOCET TAB 5/325 MG PO PRN (08:17)
--- NOTE | 2023-11-15 11:11 | W.DIS.FURT ---
Summary of Discharge Discharge Summary of Date Date of Exam: 11/15/23 Admission Date Date of Admission: 11/09/23 Admission Diagnosis Hospital Course: This is a 68 year old male with bilateral peripheral artery disease who marcelino had bilateral arterial intervention in the last several months. Post procedure follow-up study showed occlusion of the arteries of the right leg with severe ischemia . However, we were unable to get ahold of him for over 2 weeks despite multiple messages left with both he and with his sister. At that time he presented and had cocaine intoxication and had withdrawal and had revascularization of the right leg. The leg has been saved however the right foot turned gangrenous and he was admitted November 08 and underwent right below knee amputation. Post procedure he has done well. He is alert and oriented times 3. His dressing is intact without drainage. He is be discharged today with Home Health. he will be on his usual medications including Percocet .5 milligram tablets, 1 every 6 hours PRN pain. He follow with me in 1 week. Hemoglobin had reached a low of 7.1 grams but is rising and is now 7.6 grams at time of discharge. He has no need for transfusions as he is hemodynamically stable Vital Signs: Vital Signs (72 hours) 11/12/23 15:20 11/14/23 23:17 11/14/23 23:44 Temperature 98.1 F 98.3 F 98.3 F Pulse Rate 75 67 67 Respiratory Rate 19 22 22 Blood Pressure 135/74 128/75 128/75 O2 Sat by Pulse Oximetry 94 L 95 95 Oxygen Delivery Method Oxygen Flow Rate 11/12/23 12:00 11/12/23 12:30 11/12/23 13:00 Temperature 98.1 F Pulse Rate 80 88 Respiratory Rate 21 22 24 Blood Pressure 128/88 121/68 O2 Sat by Pulse Oximetry 96 98 Oxygen Delivery Method Room Air Room Air Oxygen Flow Rate 11/12/23 13:00 11/12/23 14:00 11/12/23 15:00 Temperature 98.0 F Pulse Rate 75 75 Respiratory Rate 19 19 16 Blood Pressure 135/74 126/66 O2 Sat by Pulse Oximetry 94 L 98 Oxygen Delivery Method Room Air Room Air Oxygen Flow Rate 11/12/23 16:00 11/12/23 16:20 11/12/23 16:50 Temperature Pulse Rate 71 Respiratory Rate 12 22 18 Blood Pressure 107/69 O2 Sat by Pulse Oximetry 97 Oxygen Delivery Method Room Air Oxygen Flow Rate 11/12/23 17:00 11/12/23 18:00 11/12/23 19:00 Temperature 98.3 F Pulse Rate 69 79 78 Respiratory Rate 17 21 20 Blood Pressure 116/66 124/57 115/65 O2 Sat by Pulse Oximetry 96 97 96 Oxygen Delivery Method Room Air Room Air Room Air Oxygen Flow Rate 11/12/23 20:00 11/12/23 20:13 11/12/23 19:00 Temperature Pulse Rate 74 Respiratory Rate 20 20 Blood Pressure 117/60 O2 Sat by Pulse Oximetry 95 Oxygen Delivery Method Room Air Nasal Cannula Oxygen Flow Rate 2 11/12/23 20:43 11/13/23 00:00 11/13/23 03:51 Temperature 98.7 F Pulse Rate 67 Respiratory Rate 18 22 17 Blood Pressure 134/57 O2 Sat by Pulse Oximetry Oxygen Delivery Method Oxygen Flow Rate 11/13/23 04:00 11/13/23 04:21 11/12/23 20:52 Temperature 98.5 F Pulse Rate 76 Respiratory Rate 17 18 Blood Pressure 125/62 O2 Sat by Pulse Oximetry 97 Oxygen Delivery Method Room Air Room Air Oxygen Flow Rate 11/13/23 07:57 11/13/23 08:55 11/13/23 08:57 Temperature Pulse Rate 76 Respiratory Rate 16 18 Blood Pressure O2 Sat by Pulse Oximetry Oxygen Delivery Method Oxygen Flow Rate 11/13/23 08:30 11/13/23 07:00 11/13/23 07:00 Temperature Pulse Rate Respiratory Rate Blood Pressure 127/62 O2 Sat by Pulse Oximetry Oxygen Delivery Method Room Air Room Air Oxygen Flow Rate 11/13/23 07:00 11/13/23 08:00 11/13/23 08:00 Temperature 98.3 F Pulse Rate 69 73 Respiratory Rate 11 L 27 H Blood Pressure 123/61 O2 Sat by Pulse Oximetry 95 93 L Oxygen Delivery Method Oxygen Flow Rate 11/13/23 09:00 11/13/23 10:00 11/13/23 11:48 Temperature Pulse Rate 77 68 Respiratory Rate 17 12 Blood Pressure O2 Sat by Pulse Oximetry 98 96 Oxygen Delivery Method Oxygen Flow Rate 11/13/23 11:00 11/13/23 11:24 11/13/23 11:24 Temperature Pulse Rate 69 73 Respiratory Rate 20 22 Blood Pressure 113/56 O2 Sat by Pulse Oximetry 95 96 Oxygen Delivery Method Oxygen Flow Rate 11/13/23 12:00 11/13/23 12:18 11/13/23 13:00 Temperature 99.3 F Pulse Rate 66 68 Respiratory Rate 16 24 20 Blood Pressure O2 Sat by Pulse Oximetry 97 94 L Oxygen Delivery Method Oxygen Flow Rate 11/13/23 13:24 11/13/23 13:24 11/13/23 13:24 Temperature Pulse Rate 65 Respiratory Rate 28 H Blood Pressure 117/66 117/66 O2 Sat by Pulse Oximetry 99 Oxygen Delivery Method Oxygen Flow Rate 11/13/23 14:00 11/13/23 15:00 11/13/23 16:00 Temperature 98.7 F Pulse Rate 63 64 78 Respiratory Rate 14 15 28 H Blood Pressure O2 Sat by Pulse Oximetry 99 99 96 Oxygen Delivery Method Oxygen Flow Rate 11/13/23 16:17 11/13/23 16:17 11/13/23 17:36 Temperature Pulse Rate 61 Respiratory Rate 18 16 Blood Pressure 122/65 O2 Sat by Pulse Oximetry 97 Oxygen Delivery Method Oxygen Flow Rate 11/13/23 18:06 11/13/23 19:00 11/13/23 20:00 Temperature 98.3 F Pulse Rate 67 Respiratory Rate 16 22 Blood Pressure 128/75 O2 Sat by Pulse Oximetry 95 Oxygen Delivery Method Room Air Oxygen Flow Rate 11/14/23 00:00 11/14/23 00:58 11/14/23 01:28 Temperature 98.5 F Pulse Rate 70 Respiratory Rate 20 20 20 Blood Pressure 116/69 O2 Sat by Pulse Oximetry 98 Oxygen Delivery Method Oxygen Flow Rate 11/14/23 04:00 11/14/23 04:43 11/14/23 05:13 Temperature 98.1 F Pulse Rate 65 Respiratory Rate 14 16 16 Blood Pressure 135/64 O2 Sat by Pulse Oximetry 97 Oxygen Delivery Method Oxygen Flow Rate 11/13/23 21:25 11/14/23 07:00 11/14/23 08:57 Temperature Pulse Rate 74 Respiratory Rate Blood Pressure O2 Sat by Pulse Oximetry Oxygen Delivery Method Room Air Room Air Oxygen Flow Rate 11/14/23 09:08 11/14/23 10:12 11/14/23 13:07 Temperature Pulse Rate Respiratory Rate 22 24 15 Blood Pressure O2 Sat by Pulse Oximetry Oxygen Delivery Method Oxygen Flow Rate 11/14/23 17:07 11/13/23 17:00 11/13/23 18:00 Temperature Pulse Rate 64 62 Respiratory Rate 24 18 12 Blood Pressure O2 Sat by Pulse Oximetry 92 L 98 Oxygen Delivery Method Oxygen Flow Rate 11/14/23 07:14 11/14/23 07:15 11/14/23 07:15 Temperature Pulse Rate 75 68 Respiratory Rate 16 20 Blood Pressure 115/83 O2 Sat by Pulse Oximetry 96 Oxygen Delivery Method Oxygen Flow Rate 11/14/23 08:00 11/14/23 08:00 11/14/23 08:53 Temperature 99.1 F Pulse Rate 68 73 Respiratory Rate 18 21 Blood Pressure 123/66 O2 Sat by Pulse Oximetry 94 L 99 Oxygen Delivery Method Oxygen Flow Rate 11/14/23 08:53 11/14/23 09:00 11/14/23 09:00 Temperature Pulse Rate 74 Respiratory Rate 32 H Blood Pressure 123/68 117/67 O2 Sat by Pulse Oximetry 96 Oxygen Delivery Method Oxygen Flow Rate 11/14/23 10:00 11/14/23 10:00 11/14/23 11:06 Temperature Pulse Rate 70 Respiratory Rate 17 Blood Pressure 117/65 O2 Sat by Pulse Oximetry 94 L Oxygen Delivery Method Room Air Oxygen Flow Rate 11/14/23 11:00 11/14/23 11:00 11/14/23 12:00 Temperature 99.4 F Pulse Rate 74 71 Respiratory Rate 24 13 Blood Pressure 112/60 O2 Sat by Pulse Oximetry 95 98 Oxygen Delivery Method Oxygen Flow Rate 11/14/23 12:00 11/14/23 13:00 11/14/23 13:00 Temperature Pulse Rate 73 Respiratory Rate 21 Blood Pressure 136/59 118/67 O2 Sat by Pulse Oximetry 96 Oxygen Delivery Method Oxygen Flow Rate 11/14/23 14:00 11/14/23 14:00 11/14/23 15:01 Temperature Pulse Rate 69 75 Respiratory Rate 21 Blood Pressure 122/58 O2 Sat by Pulse Oximetry 97 100 Oxygen Delivery Method Oxygen Flow Rate 11/14/23 15:02 11/14/23 15:02 11/14/23 16:00 Temperature 98.8 F Pulse Rate 72 72 Respiratory Rate 18 23 Blood Pressure 111/66 O2 Sat by Pulse Oximetry 99 98 Oxygen Delivery Method Oxygen Flow Rate 11/14/23 16:16 11/14/23 16:16 11/14/23 17:37 Temperature Pulse Rate 68 Respiratory Rate 29 H 24 Blood Pressure 114/66 O2 Sat by Pulse Oximetry 98 Oxygen Delivery Method Oxygen Flow Rate 11/14/23 22:21 11/14/23 19:00 11/14/23 20:00 Temperature 98.2 F Pulse Rate 81 Respiratory Rate 24 48 H Blood Pressure 118/57 O2 Sat by Pulse Oximetry 90 L Oxygen Delivery Method Room Air Room Air Oxygen Flow Rate 11/15/23 00:00 11/14/23 22:51 11/14/23 21:15 Temperature 98 F Pulse Rate 72 Respiratory Rate 28 H 26 H Blood Pressure 134/68 O2 Sat by Pulse Oximetry 97 Oxygen Delivery Method Room Air Room Air Oxygen Flow Rate 11/15/23 05:15 11/15/23 04:00 11/15/23 05:45 Temperature 98.3 F Pulse Rate 67 Respiratory Rate 28 H 23 31 H Blood Pressure 145/68 O2 Sat by Pulse Oximetry 98 Oxygen Delivery Method Room Air Oxygen Flow Rate 11/15/23 08:17 11/15/23 07:00 11/15/23 08:00 Temperature 98.4 F Pulse Rate 77 Respiratory Rate 20 25 H Blood Pressure 127/57 O2 Sat by Pulse Oximetry 99 Oxygen Delivery Method Room Air Room Air Oxygen Flow Rate Labs: Laboratory Last Values WBC 10.8 X10^3/uL (3.6-10.0) H 11/15/23 04:25 RBC 2.61 X10^6/uL (4.7-6.0) L 11/15/23 04:25 Hgb 7.6 g/dL (13.5-18.0) L 11/15/23 04:25 Hct 22.8 % (42.0-54.0) L 11/15/23 04:25 MCV 87.3 fL (80.0-100.0) 11/15/23 04:25 MCH 29.0 pg (27.0-34.0) 11/15/23 04:25 MCHC 33.2 g/dL (33.0-35.0) 11/15/23 04:25 RDW 16.7 % (11.6-16.5) H 11/15/23 04:25 Plt Count 337 X10^3/uL (150.0-450.0) 11/15/23 04:25 MPV 8.1 fL (7.4-11.0) 11/15/23 04:25 Neut % (Auto) 79.6 % (42.0-75.0) H 11/15/23 04:25 Lymph % (Auto) 10.6 % (21.0-51.0) L 11/15/23 04:25 [place] % (Auto) 8.3 % (0.0-13.0) 11/15/23 04:25 Eos % (Auto) 0.9 % (0.9-2.9) 11/15/23 04:25 Baso % (Auto) 0.6 % (0.2-1.0) 11/15/23 04:25 Neut # (Auto) 8.6 x10^3/uL (2.2-4.8) H 11/15/23 04:25 Lymph # (Auto) 1.1 X10^3/uL (1.3-2.9) L 11/15/23 04:25 [place] # (Auto) 0.9 x10^3/uL (0.3-0.8) H 11/15/23 04:25 Eos # (Auto) 0.1 x10^3/uL (0.0-0.2) 11/15/23 04:25 Baso # (Auto) 0.1 X10^3/uL (0.0-0.1) 11/15/23 04:25 Absolute Nucleated RBC 0.1 /100WBC 11/15/23 04:25 Sodium 135 mmol/L (136-145) L 11/15/23 04:25 Corrected Sodium TNP 11/15/23 04:25 Potassium 3.9 mmol/L (3.5-5.1) 11/15/23 04:25 Chloride 98 mmol/L (98-107) 11/15/23 04:25 Carbon Dioxide 32.2 mmol/L (21-32) H 11/15/23 04:25 BUN 8 mg/dL (7-18) 11/15/23 04:25 Creatinine 1.00 mg/dL (0.70-1.30) 11/15/23 04:25 Est GFR (MDRD) Af Amer > 60 (>60) 11/15/23 04:25 Est GFR (MDRD) Non-Af > 60 (>60) 11/15/23 04:25 Glucose 102 mg/dL (65-99) H 11/15/23 04:25 POC Glucose (mg/dL) 123 mg/dL (65-99) H 11/15/23 06:33 Calcium 8.3 mg/dL (8.5-10.1) L 11/15/23 04:25 Corrected Calcium 10.0 mg/dL (8.5-10.1) 11/14/23 04:49 Magnesium 2.0 mg/dL (2.0-2.9) 11/14/23 04:49 Total Bilirubin 0.30 mg/dL (0.2-1.0) 11/14/23 04:49 AST 24 Units/L (15-37) 11/14/23 04:49 ALT 15 Units/L (12-78) 11/14/23 04:49 Alkaline Phosphatase 101 Units/L (46-116) 11/14/23 04:49 Total Protein 6.9 g/dL (6.4-8.2) 11/14/23 04:49 Albumin 1.9 g/dL (3.4-5.0) L 11/14/23 04:49 Globulin 5.0 g/dL (2.5-4.5) H 11/14/23 04:49 Albumin/Globulin Ratio 0.4 Ratio (1.1-2.1) L 11/14/23 04:49 Digoxin 0.64 ng/mL (0.9-2) L 11/13/23 04:15 Urine Opiates Screen Negative (NEG=<300) 11/08/23 15:48 Urine Methadone Screen Negative (NEG=<300) 11/08/23 15:48 Ur Barbiturates Screen Negative (NEG=<200) 11/08/23 15:48 Ur Phencyclidine Scrn Negative (NEG=<25) 11/08/23 15:48 Ur Amphetamines Screen Negative (NEG=<1000) 11/08/23 15:48 U Benzodiazepines Scrn Positive (NEG=<200) 11/08/23 15:48 Urine Cocaine Screen Positive (NEG=<300) 11/08/23 15:48 U Marijuana (THC) Screen Negative (NEG=<50) 11/08/23 15:48 Blood Type O POSITIVE 11/09/23 15:43 Antibody Screen Negative 11/09/23 15:43 Reason For Visit: RIGHT LOWER EXT ISCHEMIA Discharge Date Discharge Date: 11/15/23 Discharge Diagnosis All Active Problems (Updated 10/26/23 @ 09:52 by Stephen Turner) Wound of right foot (Acute) Anemia (Acute) Type 2 diabetes mellitus (Chronic) Atrial fibrillation (Chronic) Ischemic leg (Acute) Gout (Acute) Tobacco abuse (Acute) Hyperlipidemia (Chronic) Essential (primary) hypertension (Chronic) Type 2 diabetes mellitus without complications (Acute) Atherosclerosis of [place] arteries of extremities with rest pain, left leg (Acute) Atherosclerosis of [place] arteries of extremities with rest pain, right leg (Acute) Plan of Treatment: Continue with present treatment and follow up plan. Pt is to keep follow up appointment as instructed and take medications as ordered. Discharge Medications Discharge Medications: No Known Allergies Allergy (Verified 11/08/23 14:05) CONTINUE taking the following medications diltiazem HCl 180 mg capsule,extended release 24 hr (Cartia XT) 180 mg PO QDAY 11/08/23 [History] glipizide 5 mg-metformin 500 mg tablet 1 tab PO QMWF 11/08/23 [History] aspirin 81 mg po daily Percocet 5 mg , 1 po q 6 Hr PRN pain digoxin 0.25 mg po daily Discharge Disposition Assessment: see hospital course Discharge Plan Discharge Plan Hospital Course: This is a 68 year old male with bilateral peripheral artery disease who marcelino had bilateral arterial intervention in the last several months. Post procedure follow-up study showed occlusion of the arteries of the right leg with severe ischemia . However, we were unable to get ahold of him for over 2 weeks despite multiple messages left with both he and with his sister. At that time he presented and had cocaine intoxication and had withdrawal and had revascularization of the right leg. The leg has been saved however the right foot turned gangrenous and he was admitted November 08 and underwent right below knee amputation. Post procedure he has done well. He is alert and oriented times 3. His dressing is intact without drainage. He is be discharged today with Home Health. he will be on his usual medications including Percocet .5 milligram tablets, 1 every 6 hours PRN pain. He follow with me in 1 week. Hemoglobin had reached a low of 7.1 grams but is rising and is now 7.6 grams at time of discharge. He has no need for transfusions as he is hemodynamically stable Patient Disposition: HOME HEALTH SERVICE Condition: Stable Health Concerns: Post Hospitalization: new medications and changes needed to prevent readmission or further decline. Pt educated and given instructions on all concerns. Care Plan Goals: Problem: Pain/Alteration in Comfort Goal: Improve/ Resolve Pain; Achieve Pain Tolerance Instructions: Take pain medications as prescribed. Contact your primary care provider if your pain is unrelieved or worsens. Follow up with primary care ollie roy as directed. Plan of Treatment: Continue with present treatment and follow up plan. Pt is to keep follow up appointment as instructed and take medications as ordered. Assessment: see hospital course Prescription drug monitoring program results: PDMP reviewed with concerns identified Prescriptions: New oxycodone-acetaminophen [Percocet] 5-325 mg tablet 1 tab PO Q6H MDD 4 PRNQty: 30 0RF Continued aspirin 81 mg Capsule 81 mg PO QDAY Qty: 30 0RF Rx Instructions: Take one tab daily potassium chloride 10 mEq capsule, extended release 10 meq PO QDAY simvastatin 10 mg tablet 10 mg PO QPM hydralazine 25 mg tablet 25 mg PO QDAY amlodipine 10 mg tablet 10 mg PO QDAY paroxetine HCl 20 mg tablet 20 mg PO QDAY doxazosin 4 mg tablet 4 mg PO QDAY hydrochlorothiazide 25 mg tablet 25 mg PO QDAY colchicine 0.6 mg tablet 0.6 mg PO QDAY lisinopril 40 mg tablet 40 mg PO QDAY Eliquis 5 mg tablet 5 mg PO BID digoxin [Lanoxin] 250 mcg (0.25 mg) Tablet 250 mcg PO QDAY Qty: 30 0RF oxycodone-acetaminophen [Percocet] 5-325 mg tablet 1 tab PO Q6H MDD 4 PRNQty: 30 0RF diltiazem HCl [Cartia XT] 180 mg capsule,extended release 24hr 180 mg PO QDAY glipizide-metformin 5-500 mg tablet 1 tab PO QMWF Follow ups/Referrals Follow ups/Referrals: ANDERSON ROSA [STAFF PHYSICIAN] - 1 WEEK To [facility] [Primary Care Provider] - 11/29/23 4:00 pm Instructions Instructions: Stump and Prosthesis Care, Living With an Amputation, Phantom Limb Pain, Gangrene Stand Alone Forms: Excuse From Work or School, Post Hospital Follow Up Care
[2023-11-15 11:43] VITALS: BP 113/64; PULSE 67; TEMP 98.2; O2SAT 100
[2023-11-15 11:49] VITALS: RESP 20
== END 2023-11-15 13:00 | disposition home health service (06) | DRG 240 ==
LOC: MED/SURG 12:17 → ICU 11-09 18:30
PROVIDERS: ADMIT Surgery; ATTEND Surgery